=== PATIENT | female | born 1940 | race Hispanic/Latino ===

== ENCOUNTER 2023-05-19 06:09 | Day surgery (SDC) | payer MEDICARE ==
[2023-05-13 12:06] LABS: BASOPHILS # (AUTO) 0.05 K/uL (0.00-0.20); EOSINOPHILS # (AUTO) 0.36 K/uL (0.00-0.70); EOSINOPHILS % (AUTO) 6.9 % (0.0-8.0); HEMATOCRIT 25.7 % (36-48); IMMATURE GRANULOCYTE ABSOLUTE 0.01 K/uL (0-1); LYMPHOCYTES # (AUTO) 0.8 K/uL (1.0-4.8); LYMPHOCYTES % (AUTO) 15.5 % (21.0-51.0); MEAN CORPUSCULAR HEMOGLOBIN 32.6 pg (27.0-33.0); MEAN CORPUSCULAR HGB CONC 34.2 g/dL (32.0-36.0); MEAN CORPUSCULAR VOLUME 95.2 fL (79-99); MONOCYTES # (AUTO) 0.6 K/uL (0.1-1.0); MONOCYTES % (AUTO) 11.7 % (3.0-13.0); NEUTROPHILS # (AUTO) 3.4 K/uL (1.8-7.7); NEUTROPHILS % (AUTO) 64.7 % (40.0-77.0); PLATELET COUNT (AUTO) 146 K/uL (130-400); RED CELL DISTRIBUTION WIDTH 12.2 % (11.0-15.5); WHITE BLOOD COUNT (AUTO) 5.2 K/uL (4.8-10.8)
[2023-05-13 12:16] LABS: INR < 0.93 (0.85-1.15); PROTHROMBIN TIME 10.5 SEC (9.6-11.6)
[2023-05-13 12:17] LABS: CREATININE 3.2 mg/dL (0.5-1.5); PARTIAL THROMBOPLASTIN TIME 26.1 SEC (26.3-35.5); POTASSIUM 5.6 mmol/L (3.5-5.1)
[2023-05-13 12:58] VITALS: BP 117/60; PULSE 61; RESP 16
[~2023-05-19] VITALS: Ht 152.4 cm; Wt 68.4 kg
[2023-05-19] VITALS (17 sets, daily range): BP systolic 111–154; BP diastolic 34–46; PULSE 51–58; RESP 10–18
[~2023-05-19 06:09] MED LIST: ASPI-1026 PO; CARV25TA PO; CHOL500045 PO; DOXA4TAB3 PO; EZET10TA48 PO; FERR-82 PO; FOLI1CAP16 PO; FURO20TA4 PO; ISOS60TA77 PO; LEVO75CA5 PO; MAGN250C PO; NIFE-40 PO; UBID50TA3 PO
[2023-05-19] MEDS ORDERED: LACTATED RINGERS 1000ML 1,000 ML IV ONE (06:21)
[2023-05-19] MEDS ORDERED: CEFAZOLIN SODIUM 2 GM VIAL ONE (06:22)
[2023-05-19 06:40] LABS: CREATININE 3.2 mg/dL (0.5-1.5); POTASSIUM 5.2 mmol/L (3.5-5.1)
[2023-05-19] MEDS ORDERED: BUPIVACAINE/PF 0.5% 30ML VIAL ONE (07:15)
[2023-05-19] MEDS ORDERED: EPINEPHRINE PF 1MG (1:1,000) 1 MG/ML AMP ONE (07:15)
[2023-05-19] MEDS ORDERED: ONDANSETRON 4MG INJ ONE ×2 (07:24→08:23)
[2023-05-19] MEDS ORDERED: LIDOCAINE PF 100MG/5ML (2%) SYRINGE 5ML ONE (07:24)
[2023-05-19] MEDS ORDERED: DEXAMETHASONE SOD PHOSPHATE 10MG/ML 1ML VIAL ONE (07:24)
[2023-05-19] MEDS ORDERED: MIDAZOLAM HCL 1 MG/ML 2ML VIAL ONE (07:25)
[2023-05-19] MEDS ORDERED: FENTANYL CITRATE PF 50 MCG/1 ML 2ML VIAL ONE (07:25)
[2023-05-19] MEDS ORDERED: PROPOFOL 10 MG/ML 20ML VIAL IV ONE (07:25)
[2023-05-19] MEDS ORDERED: KETAMINE 50MG/ML SYRINGE 50 MG/ML DISP.SYRIN ONE (07:27)
[2023-05-19] MEDS ORDERED: EPHEDRINE SULFATE 50 MG/ML AMPULE ONE (07:49)
[2023-05-19] MEDS ORDERED: BUPIVACAINE/EPI/PF 0.5% 30ML VIAL IJ ONE (07:54)
[2023-05-19] MEDS ORDERED: DOCU-116 PO (08:08)
[2023-05-19] MEDS ORDERED: TRAM50TA4 PO (08:10)
[2023-05-19] MEDS ORDERED: MEPERIDINE-PF 25 MG/ML SYG ONE (08:24)
== END 2023-05-19 10:15 | disposition home or self-care (01) ==
LOC: DAH 06:09
PROVIDERS: ATTEND Surgery
DX: C44.619 Basal cell carcinoma of skin of left upper limb, including shoulder (principal); I25.119 Atherosclerotic heart disease of native coronary artery with unspecified angina pectoris; G47.33 Obstructive sleep apnea (adult) (pediatric); M19.90 Unspecified osteoarthritis, unspecified site; I87.2 Venous insufficiency (chronic) (peripheral); E55.9 Vitamin D deficiency, unspecified; I73.9 Peripheral vascular disease, unspecified; D63.1 Anemia in chronic kidney disease; I12.9 Hypertensive chronic kidney disease with stage 1 through stage 4 chronic kidney disease, or unspecified chronic kidney disease; N18.9 Chronic kidney disease, unspecified; Z79.01 Long term (current) use of anticoagulants; Z88.6 Allergy status to analgesic agent; Z88.8 Allergy status to other drugs, medicaments and biological substances; Z95.1 Presence of aortocoronary bypass graft; Z98.890 Other specified postprocedural states; Z90.710 Acquired absence of both cervix and uterus; E89.0 Postprocedural hypothyroidism; Z82.49 Family history of ischemic heart disease and other diseases of the circulatory system; Z80.3 Family history of malignant neoplasm of breast; Z80.0 Family history of malignant neoplasm of digestive organs; Z87.891 Personal history of nicotine dependence; Z79.890 Hormone replacement therapy; Z79.82 Long term (current) use of aspirin; Z79.899 Other long term (current) drug therapy
CPT/HCPCS: 80048 ×2; 85025; 85610; 85730; 36415 ×2; 11604; 88305; A6260; J7120; J3010; J1100; J2001; J0171; J3490 ×4; J2250; J2704; J2405 ×2; J2175; J0690; A4215; A4223; A4222; A4221; A4663; A6450; A4600

== ENCOUNTER 2024-07-28 08:21 | Inpatient (IN) | payer MEDICARE ==
[~2024-07-28] VITALS: Ht 495.3 cm; Wt 56.4 kg
[2024-07-28] VITALS (18 sets, daily range): BP systolic 118–173; BP diastolic 43–79; PULSE 65–92; RESP 14–20; TEMP 97.1–99.8; O2SAT 96
[~2024-07-28 08:21] MED LIST changes: +DOCU-116 PO; +TRAM50TA4 PO
[2024-07-28] MEDS ORDERED: ISOS60TA77 PO (10:20)
[2024-07-28] MEDS ORDERED: FOLI0.8T22 PO (10:20)
[2024-07-28] MEDS ORDERED: VITAMIN B12 PO (10:20)
[2024-07-28] MEDS ORDERED: CALC667C10 PO (10:20)
[2024-07-28] MEDS ORDERED: ASPI-1005 PO (10:20)
[2024-07-28] MEDS ORDERED: CLOP-31 PO (10:20)
[2024-07-28] MEDS ORDERED: FERR-63 PO (10:20)
[2024-07-28] MEDS ORDERED: FAMO20TA8 PO (10:20)
[2024-07-28] MEDS ORDERED: ATOR40TA69 PO (10:20)
[2024-07-28] MEDS: 0.9% NACL 500ML IV.SOLN 500 ML IV ONE (10:35)
[2024-07-28] MEDS ORDERED: proPOFol 10 MG/ML 20ML VIAL IV ONE ×2 (11:59→12:18)
--- NOTE | 2024-07-28 13:21 | NUR ---
AT ABOUT 1320 PT ASKED TO USE THE RESTROOM PT GOT UP FROM BED DENIES ANY DIZZINESS OR ANY COMPLAINTS AMBULATED TO RESTROOM WITH PATRICE CASTILLO ASSISTING. WE DID NOTICE BLOOD ON PATIENTS SHEET ON THE BED AND SOME MORE BLOOD IN THE TOILET TOTAL OF ABOUT 100ML. I THEN CALLED [facility] TO MAKE STAFF AND DR. GARCIA AWARE.
--- NOTE | 2024-07-28 13:24 | NUR ---
NURSING STAFF FROM GI LAB CAME BY AND STATED THEY SPOKE WITH DR. GARCIA ABOUT PT HAVING BRIGHT RED RECTAL BLEEDING. ACCORDING TO DR. GARCIA SHE WILL HAVE SOME BLEEDING D/T SOME TRAUMA FROM THE SCOPE AND PT HAVING SOME IRRITATION IN GI TRACT, AND PT WAS OK TO BE DISCHARGED PER DR. GARCIA.
--- NOTE | 2024-07-28 13:51 | NUR ---
SINCE LAST NOTE PT DID PASS SOME MORE MARLEN BLOOD IN THE RESTROOM NURSING STAFF IN DAYPT WITNESSED. PT ALSO HAD ANOTHER EPISODE OF RECTAL BLEEDING WHILE IN BED AND WISHES TO SPEAK TO "SOMEBODY ABOUT THIS". [facility] LAB WAS CONTACTED AND TOLD TO HAVE DR. GARCIA OR ONE OF THEM SPEAK AND ASSESS PT.
--- NOTE | 2024-07-28 14:10 | NUR ---
RN FROM GI LAB CAME AND ASSESSED PT SPOKE WITH DR. GARCIA ABOUT FINDINGS AND WAS TOLD TO HOLD PT FOR 1 HOUR AND IF THIS CONTINUES TO CALL HIS MID LEVEL GAGE TO COME ASSESS THE PT.
--- NOTE | 2024-07-28 14:45 | NUR ---
PT DID PASS MORE RECTAL BLOOD SCOTT JOHNSON MADE DR. GARCIA AWARE STATES WILL GET A HOLD OF PRODUCTION GENERALIST TO COME ASSESS PT.
--- NOTE | 2024-07-28 15:20 | NUR ---
PT STARTED WITH NAUSEA VOMITING. I DID CONTACT NASREEN BYRD FROM [facility] TO ADMIT UNDER HOSPITALIST AND GIVE ZOFRAN IV NOW. HOSPITALIST PAGED AT THIS TIME.
[2024-07-28] MEDS: ondanSETRON 4MG INJ IVP ONE (15:30)
--- NOTE | 2024-07-28 15:46 | NUR ---
MAHI MITCHELL HOSPITALIST ARRIVED TO DAY 2 TO ASSESS PT.
--- NOTE | 2024-07-28 15:58 | NUR ---
SPOKE WITH ROCHELLE DOWNEY [facility] AND WAS TOLD TO GIVE PT AN CLEAR LIQUID DIET AND IF PT CONTINUES TO BLEED THEN THEY WILL SCOPE PT AGAIN TOMORROW. PENDING ORDERS FROM HER. WILL CONTINUE TO MONITOR PT. VSS NAD AT THIS TIME.
--- NOTE | 2024-07-28 16:25 | HP ---
[facility] HISTORY AND PHYSICAL Date of Service: Jul 28, 2024 Time of Service: 16:08 HISTORY OF PRESENT ILLNESS: [ ] This is a 83-year-old female underwent colonoscopy as outpatient. Postprocedure patient having rectal bleed already has seven episodes. Patient be admitted for observation H&H every 6 hours transfuse to keep hemoglobin above 7.0 nurse practitioner Tamiko Crystal we will carbon to evaluate patient. Patient was seen in day surgery bed 2 patient lying in bed patient denies abdominal pain. Patient denied chest pain or shortness a breath. Patient plan of care was discussed verbalized understanding. REVIEW OF SYSTEMS CONSTITUTIONAL: Denies fevers, chills, or night sweats. No unintentional weight loss reported. NEUROLOGICAL: Denies headache, amaurosis fugax, motor weakness, sensory deficit, vertigo/spinning sensation, gait abnormalities, or tremors. ENT: No hearing loss, otalgia, otorrhea, rhinitis, rhinorrhea, hoarseness, or sore throat. CARDIOVASCULAR: Denies any exertional angina, dyspnea on exertion, orthopnea, paroxysmal nocturnal dyspnea, palpitations, life-threatening arrhythmias, claudication. PULMONARY: Denies any shortness of breath, cough, phlegm/sputum, hemoptysis, pleuritic chest pain. SLEEP: Denies morning headaches, daytime somnolence or napping. Denies difficulty falling asleep, staying asleep, waking from sleep. Denies knowledge of snoring. GASTROINTESTINAL: Denies any type of dysphagia to either liquids or solids. Denies nausea, vomiting, pyrosis, early satiety, abdominal pain, diarrhea, constipation, or changes in stool consistency or caliber. Denies coffee-ground emesis, hematemesis, hematochezia, or melanotic stools. GENITOURINARY: Denies frequency, urgency, nocturia, hematuria or incontinence (Storage/Irritative symptoms.) Low urinary stream, straining to void, urinary intermittency or hesitancy, splitting of the voiding stream, terminal dribbling. ENDOCRINOLOGIC: Denies polyuria, polydipsia, polyphagia or heat/cold intolerances. HEMATOLOGIC: Denies thrombophilia/previous clots, or coagulopathy/bleeding disorders. ONCOLOGIC: Denies personal history of malignancy. DERMATOLOGIC: Denies rashes or pruritus. PSYCHIATRIC: Denies any suicidal or homicidal ideation. Denies hallucinations. PAST MEDICAL HISTORY: [ ] Hypertension, hyperlipidemia, end-stage renal disease on dialysis, diabetes type PAST SURGICAL HISTORY: [ ] CABG Bladder surgery, thyroidectomy, PermCath placement, urine cancer PAST SOCIAL HISTORY: [ ] Denies smoking tobacco products and alcohol use FAMILY HISTORY: [ ] Noncontributory Coded Allergies: codeine (Unverified Allergy, Unknown, 05/15/23) Uncoded Allergies: flu vaccine (Allergy, Unknown, 05/15/23) PHYSICAL EXAM GENERAL APPEARANCE: The patient is awake, alert, and oriented, in no acute cardiopulmonary distress. NEUROLOGICAL: Cranial nerves II-XII grossly intact. Motor is 5/5 in bilateral upper and lower extremities proximal to distal. No sensory deficits. HEENT: Face is symmetric. Pupils are equal and reactive. Extraocular movements are intact. NECK: Supple. No JVD. No thyromegaly. No submental, submandibular, pre-/po stauricular, occipital or supraclavicular lymphadenopathy. CHEST: Normal chest expansion. No Telemetry. LUNGS: Absence of any rales, rhonchi or any wheezing. CARDIOVASCULAR: Regular. S1 and S2 normal. No appreciable rubs, murmurs or gallops. ABDOMEN: Soft, nontender, and nondistended. There is no rebound, voluntary guarding, or rigidity. : Deferred. No Prater. EXTREMITIES: Non-edematous and not cyanotic. No clubbing. Good capillary refill. SKIN: No skin breakdown. Vital Sign (Last 24 Hours) 07/28/24 07/28/24 07/28/24 12:25 13:23 13:50 Temp 97.7 Pulse 87 Resp 15 B/P (MAP) 140/77 Pulse Ox 98 O2 Delivery Room Air O2 Flow Rate 3.0 FiO2 21 LABS: Laboratory: Test 07/28/24 13:40 Range/Units Whole Blood Glucose 96 70-110 MG/DL Current Medications Medications (Trade) Dose Ordered Sig/Seble Route PRN Reason Start Time Stop Time Status Last Admin Dose Admin Levothyroxine Sodium (SYNTHroid 75MCG TAB) 75 mcg DAILY@0630 PO 07/29/24 06:30 08/28/24 06:29 UNV Pantoprazole Sodium 80 mg/ Sodium Chloride 100 ml @ 10 mls/hr Q10H IVP 07/28/24 16:30 08/27/24 16:29 UNV DIAGNOSTICS / RADIOLOGY: [ ] ASSESSMENT: rectal bleed s/p Colonoscopy.POA acute blood loss POA chronic problems: ESRD on HD, CAD s/p CABG, DM Type II PLAN: admit; Medical Surg. Unit Observation over night. admit: GI Dr. Blu Dan H/H q 6 hrs transfuse to keep hgb above 7.0 famotidine 20 mg IV daily home medication: hold asa and plavix fluid restriction, daily weight. HD 3x weekly; MWF replace electrolytes as per protocol PRN: MEDICATIONS Tylenol 650 mg po every 4 hrs for fever zofran 4 mg IV every 6 hrs for n/v [id number] IV every 4 hrs systolic pressure > 160 Supportive measures: DVT ppx with SCD , GI ppx all questions answered time spent: > 35 min Supervising MD: Dr. Clayton c/d [facility] PLANNING 1. Which of the following were discussed? Hospice Care - Yes / No Therapeutic options - Yes / No Advance Directives - Yes / No Other discussions - 2. Discussed with who? 3. Voluntary nature of this service was explained to the patient? Yes / No 4. Amount of time spent - 5. Reviewed by Physician? (if this service was performed by NPP) Yes / No ATTESTATION BY PHYSICIAN I have seen and examined the patient. I reviewed the documentation, medical decision making, and treatment plan as noted by the mid-level provider above. I agree with the findings and plan of care. BHAVIN CLAYTON MD, [facility]ABETH PERFORMANCE ENGINEER Jul 28, 2024 16:25
[2024-07-28] MEDS ORDERED: PANTOPrazole 40MG INJ 80 MG in 0.9%NACL 100ML 100 ML IVP SCH (16:30)
[2024-07-28] MEDS ORDERED: acetaMINOPHEN 325 MG TAB PO PRN (16:30)
[2024-07-28] MEDS ORDERED: ondanSETRON 4MG INJ IVP PRN (16:30)
--- NOTE | 2024-07-28 17:44 | NUR ---
REPORT GIVEN TO 4TH FLOOR NURSE
[2024-07-28 18:21] LABS: HEMATOCRIT 32.1 % (36-48)
[2024-07-28] MEDS: FAMOTIDINE 20MG VIAL IV SCH (20:13)
--- NOTE | 2024-07-28 23:00 | NUR ---
NEW ORDERS FOR COLONOSCOPY MADE PATIENT AWARE OF NEW ORDER FOR COLONOSCOPY. PATIENT ASKING WHY SHE ISN'T HAVING A CT SCAN FIRST. PATIENT STATES SHE WAS TOLD THAT A CT WOULD BE DONE FIRST. PATIENT CONCERNED ABOUT HAVING ANOTHER COLONOSCOPY. PATIENT WOULD LIKE TO SPEAK TO DR OR BACK JOINER BEFORE PROCEEDING SO THAT SHE MAY ASK A FEW QUESTIONS. REFUSAL FOR COLONOSCOPY AND PREP SIGNED BY PATIENT.
[2024-07-29] VITALS (20 sets, daily range): BP systolic 111–185; BP diastolic 31–69; PULSE 61–82; RESP 16–18; TEMP 97.5–99; O2SAT 94
[2024-07-29 05:43] LABS: HEMATOCRIT 27.2 % (36-48)
[2024-07-29 06:18] LABS: ALBUMIN 3.2 g/dL (3.5-5.0); BILIRUBIN,TOTAL 0.8 mg/dL (0.2-1.0); CREATININE 5.9 mg/dL (0.5-1.0); POTASSIUM 3.9 mmol/L (3.5-5.1)
[2024-07-29] MEDS: levoTHYROxine 75 MCG TABLET PO SCH (06:24)
--- NOTE | 2024-07-29 08:19 | CONS ---
NEPHROLOGY CONSULTATION REASON FOR CONSULTATION: End-stage renal disease, on hemodialysis. HISTORY OF PRESENT ILLNESS: This patient is an 83-year-old female with a history of hypertension, end-stage renal disease, on chronic hemodialysis, partial colectomy secondary to incarcerated ventral hernia ____ with colostomy, who underwent a colonoscopy and noted to have a bleeding following procedure. The patient was admitted for observation. The patient dialyzed every Thursday, Thursday and Thursday and nephrology has been consulted to assist with management of hemodialysis treatments during hospitalization. The patient was evaluated this morning. No acute events reported overnight. Voices no concerns at this time. REVIEW OF SYSTEMS: CONSTITUTIONAL: Denies any fevers or chills. EYES: Denies any acute change in vision. EARS: Denies any ear pain or discharge. NOSE AND THROAT: No congestion or sore throat. PULMONARY: Denies any cough, wheezing, or shortness of breath. CARDIOVASCULAR: Denies any chest pain, palpitation, orthopnea, or PND. GASTROINTESTINAL: Bleeding as per HPI. MUSCULOSKELETAL: Denies any erythematous joints or swollen joints. NEUROLOGIC: Denies any focal weakness or syncope. PSYCHIATRIC: Denies anxiety or depression. PAST MEDICAL HISTORY: History of uterine cancer, end-stage renal disease, on chronic hemodialysis, hypertension, hypertensive heart disease, osteoarthritis, obstructive sleep apnea, coronary artery disease, carotid artery disease, hyperlipidemia, vitamin D deficiency, anemia, history of intracranial bleed, peripheral vascular disease, venous insufficiency, prediabetes, ventral hernia, status post partial colectomy and colostomy. PAST SURGICAL HISTORY: CABG, thyroidectomy, right shoulder surgery, cataract surgery, hysterectomy, left carotid endarterectomy, partial colectomy with colostomy. FAMILY HISTORY: Positive for Parkinson's and pancreatic cancer. SOCIAL HISTORY: The patient is a former smoker, although quit several years ago. No alcohol use. ALLERGIES: CODEINE. CURRENT MEDICATIONS: Have been reviewed. PHYSICAL EXAMINATION: CURRENT VITAL SIGNS: Temperature 98.1, pulse 71, blood pressure 111/40, respiratory rate is 16, satting 94% on room air. GENERAL: The patient is resting comfortably. She is alert, she is oriented, no apparent distress. HEENT: Anicteric sclerae. CARDIAC: Regular rhythm and rate. CHEST: Clear. ABDOMEN: Soft. Colostomy in place. EXTREMITIES: No edema. NEUROLOGIC: Nonfocal. LABORATORY DATA: Hemoglobin is 9.5, hematocrit is 27.2, on admission 11.0 and 32.1. Sodium is 139, potassium is 3.9, chloride 100, bicarbonate is 30. BUN is 28, creatinine is 5.9, calcium is 8.2. ASSESSMENT: * End-stage renal disease, on chronic hemodialysis. * Hypertension. * Bleed following colonoscopy. * Anemia. * History of partial colectomy with colostomy. * History of coronary artery disease. * Hypertensive heart disease. PLAN: * End-stage renal disease: The patient will dialyze today per routine schedule 3-hour treatment, 300 blood flow rate, 600 dialysate flow rate, UF 1 liter only as tolerated, 3K bath, 2.5 calcium bath. We will continue routine dialysis Thursday, Thursday, Thursday during hospitalization. Continue renal diet and fluid restriction. * Hypertension: Stable as of this morning. Relative hypotension. Hold antihypertensives prior to dialysis today. * Status post bleed following colonoscopy: Trend H and H. Transfuse as needed. Follow recommendations from Gastroenterology. * Anemia: Resume ANNIE. TID: [id number] RECEIPT: [id number]
[2024-07-29] MEDS ORDERED: 0.9%NACL 1000ML 1,000 ML IV SCH (09:00)
--- NOTE | 2024-07-29 09:35 | PN ---
[facility] PROGRESS NOTE Date of Service: Jul 29, 2024 Time of Service: 09:35 SUBJECTIVE: [ ] 07/29/24 patient is seen and examined repeat colonoscopy this morning by Dr. Garcia patient refused wants to wait on CT abdomen results and we will have a bleeding scan today. Patient is scheduled for dialysis today as well. Patient reports no active bleeding H&H is stable at this time. REVIEW OF SYSTEMS CONSTITUTIONAL: Denies fevers, chills, or night sweats. No unintentional weight loss reported. NEUROLOGICAL: Denies headache, amaurosis fugax, motor weakness, sensory deficit, vertigo/spinning sensation, gait abnormalities, or tremors. ENT: No hearing loss, otalgia, otorrhea, rhinitis, rhinorrhea, hoarseness, or sore throat. CARDIOVASCULAR: Denies any exertional angina, dyspnea on exertion, orthopnea, paroxysmal nocturnal dyspnea, palpitations, life-threatening arrhythmias, claudication. PULMONARY: Denies any shortness of breath, cough, phlegm/sputum, hemoptysis, pleuritic chest pain. SLEEP: Denies morning headaches, daytime somnolence or napping. Denies difficulty falling asleep, staying asleep, waking from sleep. Denies knowledge of snoring. GASTROINTESTINAL: Denies any type of dysphagia to either liquids or solids. Denies nausea, vomiting, pyrosis, early satiety, abdominal pain, diarrhea, constipation, or changes in stool consistency or caliber. Denies coffee-ground emesis, hematemesis, hematochezia, or melanotic stools. GENITOURINARY: Denies frequency, urgency, nocturia, hematuria or incontinence (Storage/Irritative symptoms.) Low urinary stream, straining to void, urinary intermittency or hesitancy, splitting of the voiding stream, terminal dribbling. ENDOCRINOLOGIC: Denies polyuria, polydipsia, polyphagia or heat/cold intolerances. HEMATOLOGIC: Denies thrombophilia/previous clots, or coagulopathy/bleeding disorders. ONCOLOGIC: Denies personal history of malignancy. DERMATOLOGIC: Denies rashes or pruritus. PSYCHIATRIC: Denies any suicidal or homicidal ideation. Denies hallucinations. PHYSICAL EXAM GENERAL APPEARANCE: The patient is awake, alert, and oriented, in no acute cardiopulmonary distress. NEUROLOGICAL: Cranial nerves II-XII grossly intact. Motor is 5/5 in bilateral upper and lower extremities proximal to distal. No sensory deficits. HEENT: Face is symmetric. Pupils are equal and reactive. Extraocular movements are intact. NECK: Supple. No JVD. No thyromegaly. No submental, submandibular, pre- /postauricular, occipital or supraclavicular lymphadenopathy. CHEST: Normal chest expansion. No Telemetry. LUNGS: Absence of any rales, rhonchi or any wheezing. CARDIOVASCULAR: Regular. S1 and S2 normal. No appreciable rubs, murmurs or gallops. ABDOMEN: Soft, nontender, and nondistended. There is no rebound, voluntary guarding, or rigidity. : Deferred. No Prater. EXTREMITIES: Non-edematous and not cyanotic. No clubbing. Good capillary refill. SKIN: No skin breakdown. Vital Signs (last 8hr) Date Time Temp Pulse Resp B/P (MAP) Pulse Ox O2 Delivery O2 Flow Rate FiO2 07/29/24 08:00 97.5 67 18 143/47 94 Room Air 0.0 07/29/24 03:23 98.1 71 16 111/40 94 Room Air LABS: Laboratory: Test 07/29/24 05:07 07/29/24 05:06 Range/Units Hemoglobin 9.5 L 12.0-16.0 g/dL Hematocrit 27.2 L 36-48 % Sodium Level 139 136-145 mmol/L Potassium Level 3.9 3.5-5.1 mmol/L Chloride Level 100 L 101-111 mmol/L Carbon Dioxide Level 30 21-32 mmol/L Blood Urea Nitrogen 28 H 7-18 mg/dL Creatinine 5.9 H 0.5-1.0 mg/dL Glomerular Filtration Rate Calc 7 >90 mL/min Random Glucose 73 70-105 mg/dL Total Calcium 8.2 L 8.5-10.1 mg/dL Magnesium Level 2.00 1.80-2.40 mg/dL Total Bilirubin 0.8 0.2-1.0 mg/dL Aspartate Amino Transf (AST/SGOT) 26 10-37 U/L Alanine Aminotransferase (ALT/SGPT) 29 12-78 U/L Alkaline Phosphatase 68 50-136 U/L Total Protein 6.0 6.0-8.3 g/dL Albumin 3.2 L 3.5-5.0 g/dL Whole Blood Glucose 76 70-110 MG/DL Current Medications Medications (Trade) Dose Ordered Sig/Seble Route PRN Reason Start Time Stop Time Status Last Admin Dose Admin Acetaminophen (TYLenol 325MG TAB) 650 mg Q4H PRN PO TEMPERATURE GREATER THAN 101.5 07/28/24 16:30 08/27/24 16:29 Epoetin Chapo-epbx (Retacrit) 6,000 unit QMOWEFR SQ 07/29/24 09:00 08/28/24 08:59 Famotidine (Pepcid 20mg Vial) 20 mg Q24H IV 07/28/24 21:00 08/27/24 20:59 07/28/24 20:13 20 MG Levothyroxine Sodium (SYNTHroid 75MCG TAB) 75 mcg DAILY@0630 PO 07/29/24 06:30 08/28/24 06:29 07/29/24 06:24 75 MCG Ondansetron HCl (zoFRAN 4MG INJ) 4 mg Q6H PRN IVP NAUSEA/VOMITING 07/28/24 16:30 08/27/24 16:29 Pantoprazole Sodium 80 mg/ Sodium Chloride 100 ml @ 10 mls/hr Q10H IVP 07/28/24 16:30 07/28/24 16:07 DC Sodium Chloride 1,000 ml @ 0 mls/hr ONCE IV 07/29/24 09:00 08/28/24 08:59 DIAGNOSTICS / RADIOLOGY: [ ] ASSESSMENT: rectal bleed s/p Colonoscopy.POA acute blood loss POA Hematochezia POA chronic problems: ESRD on HD, CAD s/p CABG, DM Type II PLAN: admit; Medical Surg. Unit admit: GI Dr. Blu Dan scheduled for repeat Colonoscopy with DR Osorio. CT abd/pelvis revealed: Fluid collection in the anterior right pelvis and lower right flank, 3.3 x 3.8 x 7.0 cm, this is thin-walled without adjacent inflammation, seroma or hematoma favored over abscess. NM bleeding scan today H/H q 6 hrs transfuse to keep hgb above 7.0 famotidine 20 mg IV daily home medication: hold asa and plavix will be defer to GI. fluid restriction, daily weight. HD 3x weekly; MWF replace electrolytes as per protocol PRN: MEDICATIONS Tylenol 650 mg po every 4 hrs for fever zofran 4 mg IV every 6 hrs for n/v [id number] IV every 4 hrs systolic pressure > 160 Supportive measures: DVT ppx with SCD , GI ppx all questions answered time spent: > 35 min Supervising MD: Dr. Clayton c/d ATTESTATION BY PHYSICIAN I have seen and examined the patient. I reviewed the documentation, medical decision making, and treatment plan as noted by the mid-level provider above. I agree with the findings and plan of care. BHAVIN CLAYTON MD, [facility]ABETH NP Jul 29, 2024 09:35
--- NOTE | 2024-07-29 10:24 | HMCIMG ---
CT ABDOMEN/PELVIS W/O CONTRAST REASON: rectal bleeding COMPARISON: None. FINDINGS: Lung bases are clear. There are no focal liver lesions. There is mild renal cortical thinning, there is no mass, stone or hydronephrosis.. Spleen and pancreas appear unremarkable. There are small stones in an otherwise normal-appearing gallbladder. There is an ostomy in the right flank. There is herniation of a second small bowel loops through the ostomy without evidence of strangulation or obstruction. This includes normal appearance of the appendix There is no evidence of free fluid or intraperitoneal air. There is a well-circumscribed thin-walled fluid collection in the lower right flank extending into the anterior portion of the pelvis, this measures 7 cm superior to inferior and 3.3 x 3.8 cm axial dimension. An wall suggests a seroma or hematoma, abscess is less likely but could also be present. Aorta and retroperitoneum appear normal as do pelvic soft tissue structures. The anterior abdominal wall is intact. Osseous structures appear unremarkable. IMPRESSION: 1. Right to flank ostomy, there is a second small bowel loop herniated through the ostomy, there is no current evidence of strangulation or obstruction. 2. Fluid collection in the anterior right pelvis and lower right flank, 3.3 x 3.8 x 7.0 cm, this is thin-walled without adjacent inflammation, seroma or hematoma favored over abscess. 3. Cholelithiasis without acute cholecystitis 4. Mild bilateral renal cortical thinning 5. Otherwise unremarkable exam. CT was performed with one or more following dose reduction techniques: automated exposure control, adjustment of the mA and kv according to patient's size, or use of a iterative reconstruction technique.
--- NOTE | 2024-07-29 10:36 | PN ---
GASTROENTEROLOGY PROGRESS NOTE Date of Visit: Jul 29, 2024 Time of Visit: 10:35 Events / Notes: [ ] No acute events overnight. Bleeding has subsided. Hgb stable. Review of Systems: CONSTITUTIONAL: No malaise or change in sensation of wellbeing. ENMT: No rhinorrhea, otorrhea, sinus pain, ear ache. CARDIOVASCULAR: No angina, palpitations, orthopnea or paroxysmal dyspnea. RESPIRATORY: No SOB. GASTROINTESTINAL: No abdominal pain, nausea, vomiting, diarrhea, hematemesis, melena or change in the patient's habitual bowel movements consistency/number. GENITOURINARY: No dysuria, hematuria or change in bladder continence. MUSCULOSKELETAL: No new muscle pain or decrease in muscular strength. No new joint swelling, redness or tenderness. SKIN: No new rash. Physical Exam: GEN: Awake, alert, oriented in person, time and place, and in no acute distress. HEENT: No sinus tenderness. Tympanic membranes were not examined. No rhinorrhea. Oral pharyngeal mucosa is pink, moist and within normal limits. Neck is supple with no cervical lymphadenopathy, thyromegaly or JVD. CHEST: Inspection, palpation and percussion of the chest were unremarkable. Lung auscultation revealed normal breath sounds bilaterally. CARDIAC: PMI is within normal limits. Heart sounds are regular. Normal S1, S2. No gallop or murmur. ABD: Soft, non-tender and not distended. No peritoneal signs on palpation. No organomegaly. Normal bowel sounds. EXT: No cyanosis or clubbing. No edema. SKIN: Intact. No rashes. JOINTS: No evidence of synovitis or acute arthritis. NEURO: Alert and oriented to name, place and person. Cranial nerve examination is unremarkable. No focal motor deficits. Normal speech. Gait is normal. Strength is normal. Vital Signs (last 8hr) Date Time Temp Pulse Resp B/P (MAP) Pulse Ox O2 Delivery O2 Flow Rate FiO2 07/29/24 08:00 97.5 67 18 143/47 94 Room Air 0.0 07/29/24 03:23 98.1 71 16 111/40 94 Room Air Laboratory: [ ] Laboratory: Test 07/29/24 05:07 07/29/24 05:06 Range/Units Hemoglobin 9.5 L 12.0-16.0 g/dL Hematocrit 27.2 L 36-48 % Sodium Level 139 136-145 mmol/L Potassium Level 3.9 3.5-5.1 mmol/L Chloride Level 100 L 101-111 mmol/L Carbon Dioxide Level 30 21-32 mmol/L Blood Urea Nitrogen 28 H 7-18 mg/dL Creatinine 5.9 H 0.5-1.0 mg/dL Glomerular Filtration Rate Calc 7 >90 mL/min Random Glucose 73 70-105 mg/dL Total Calcium 8.2 L 8.5-10.1 mg/dL Magnesium Level 2.00 1.80-2.40 mg/dL Total Bilirubin 0.8 0.2-1.0 mg/dL Aspartate Amino Transf (AST/SGOT) 26 10-37 U/L Alanine Aminotransferase (ALT/SGPT) 29 12-78 U/L Alkaline Phosphatase 68 50-136 U/L Total Protein 6.0 6.0-8.3 g/dL Albumin 3.2 L 3.5-5.0 g/dL Whole Blood Glucose 76 70-110 MG/DL Current Medications Medications (Trade) Dose Ordered Sig/Seble Route PRN Reason Start Time Stop Time Status Last Admin Dose Admin Acetaminophen (TYLenol 325MG TAB) 650 mg Q4H PRN PO TEMPERATURE GREATER THAN 101.5 07/28/24 16:30 08/27/24 16:29 Epoetin Chapo-epbx (Retacrit) 6,000 unit QMOWEFR SQ 07/29/24 09:00 08/28/24 08:59 Famotidine (Pepcid 20mg Vial) 20 mg Q24H IV 07/28/24 21:00 08/27/24 20:59 07/28/24 20:13 20 MG Levothyroxine Sodium (SYNTHroid 75MCG TAB) 75 mcg DAILY@0630 PO 07/29/24 06:30 08/28/24 06:29 07/29/24 06:24 75 MCG Ondansetron HCl (zoFRAN 4MG INJ) 4 mg Q6H PRN IVP NAUSEA/VOMITING 07/28/24 16:30 08/27/24 16:29 Pantoprazole Sodium 80 mg/ Sodium Chloride 100 ml @ 10 mls/hr Q10H IVP 07/28/24 16:30 07/28/24 16:07 DC Sodium Chloride 1,000 ml @ 0 mls/hr ONCE IV 07/29/24 09:00 08/28/24 08:59 Diagnostics / Radiology: [COPY/PASTE HERE IF NO REPORTS PLEASE DELETE SECTION] Assessment: [ ] Plan: CT a/p If no more bleeding, she is cleared for discharge Continue GI prophylaxis Advance diet as tolerated Avoid NSAIDs Antireflux measures Monitor H&H and transfuse as needed Call with questions, concerns or change in clinical status Patient to follow-up at clinic post discharge Thank you for this consult GEETHA ROSA SPOON MAKER Jul 29, 2024 10:36
[2024-07-29 13:18] LABS: HEMATOCRIT 26.4 % (36-48)
[2024-07-29] MEDS: 0.9%NACL 1000ML 1,000 ML IV SCH (14:44)
[2024-07-29] MEDS ORDERED: hydrALAZine 20MG/ML VIAL IV PRN (16:30)
[2024-07-29 16:32] LABS: HEPATITIS B CORE AB TOTAL Non-Reactive (Nonreactive); HEPATITIS B SURFACE ANTIBODY Negative (Reactive); HEPATITIS B SURFACE ANTIGEN Non-Reactive (Nonreactive)
[2024-07-29] MEDS: HEParin 5,000 UNIT VIAL IRRIG SCH (16:49)
[2024-07-29 16:52] LABS: HEMATOCRIT 27.7 % (36-48)
[2024-07-29] MEDS: EPOETIN ALFA-EPBX (NON-ESRD) 10,000 UNIT/ML VIAL SQ SCH (20:08)
[2024-07-29 23:28] LABS: HEMATOCRIT 27.2 % (36-48)
[2024-07-30] VITALS: BP 115/50; PULSE 67; RESP 16; TEMP 97.9
[2024-07-30 04:00] VITALS: BP 143/66; PULSE 66; RESP 18; TEMP 97.8
[2024-07-30 05:22] LABS: HEMATOCRIT 27.7 % (36-48); MEAN CORPUSCULAR HEMOGLOBIN 33.2 pg (27.0-33.0); MEAN CORPUSCULAR HGB CONC 33.9 g/dL (32.0-36.0); MEAN CORPUSCULAR VOLUME 97.9 fL (79-99); RED BLOOD CELL COUNT(AUTO) 2.83 MIL/uL (4.00-5.50); RED CELL DISTRIBUTION WIDTH 14.4 % (11.0-15.5); WHITE BLOOD COUNT (AUTO) 6.2 K/uL (4.8-10.8)
[2024-07-30 05:43] LABS: ALBUMIN 3.2 g/dL (3.5-5.0); BILIRUBIN,TOTAL 0.7 mg/dL (0.2-1.0); CREATININE 4.2 mg/dL (0.5-1.0); POTASSIUM 4.1 mmol/L (3.5-5.1); TOTAL PROTEIN, SERUM 6.3 g/dL (6.0-8.3)
[2024-07-30 08:00] VITALS: BP 170/51; PULSE 63; RESP 16; TEMP 98.2; O2SAT 95
--- NOTE | 2024-07-30 08:33 | HMCIMG ---
GI BLEEDING SCAN INDICATION: Rectal bleeding and dark stools COMPARISON: None. TECHNIQUE: 23.0 mCi of Tc04 labelled red blood cells were utilized with the Ultratag method. FINDINGS/IMPRESSION: No evidence for any abnormal mobile increased radiotracer activity within the abdomen or pelvis to suggest active gastrointestinal hemorrhage.
[2024-07-30 09:28] VITALS: BP 150/52
--- NOTE | 2024-07-30 10:44 | DS ---
Discharge Summary Hospital Course Summary: This is a 83-year-old female underwent colonoscopy as outpatient. Postprocedure patient having rectal bleed already has seven episodes. Patient be admitted for observation H&H every 6 hours transfuse to keep hemoglobin above 7.0 nurse practitioner Tamiko Crystal we will carbon to evaluate patient. During the course of stay patient was monitored H&H was stable did not need blood transfusion on this admission. Patient had a CTA abdomen bleeding scan were negative for bleeding. Patient's latest hemoglobin 9.4 Hematocrit 27.7. Patient on room air denies any chest pain or shortness a breath patient was also followed by her primary quality audit representative for REGIONAL TRAINER management. Repeat colonoscopy with MAC was denied by patient. She was instructed to follow-up Dr. Hurt as scheduled. Patient is clinically stable for dischargeNo acute events overnight. Bleeding has subsided. Hgb stable. Assessment/Plan: discharged dx rectal bleed s/p Colonoscopy.POA bleed scan negative no active bleeding since admission acute blood loss POA no blood transfusion on this admission Hematochezia POA resolved chronic problems: ESRD on HD, CAD s/p CABG, DM Type II PLAN: ADMISSION DATE: July 29, 2024 DISCHARGE DATE: July 30, 2024 DISPOSITION: Home CONDITION: Stable SWITCHING OPERATOR(S): GI FOLLOW UP APPOINTMENT(S): Follow-up GI in one-week PROCEDURES: Colonoscopy IMAGING (S) report attached to summary : CT abdomen and pelvis, nuclear medicine bleeding scan MICROBIOLOGY: report attached to summary; none ACTIVITY: Ad whitley HOME MEDICATIONS remain the same CHANGES ON HOME MEDICATIONS none NEW MEDICATIONS none TEACHING: Fall precautions. Emergency instructions: The patient was instructed to present to the nearest Emergency Department or call 911 should their symptoms return or worsen. Home Medications: Reported Medications Isosorbide Mononitrate (Isosorbide Mononitrate ER) 60 Mg Tab.er.24h, 1 TAB PO DAILY for 30 Days, #30 TAB 0 Refills 07/28/24 Folic Acid/Vitamin B Comp W-C (Mary Kay-Charlotte Tablet) 0.8 Mg Tablet, 1 TAB PO DAILY for 30 Days, #30 TAB 0 Refills 07/28/24 Clopidogrel Bisulfate (Plavix) 75 Mg Tablet, 1 TAB PO DAILY for 30 Days, #30 TAB 0 Refills 07/28/24 Famotidine (Famotidine) 20 Mg Tablet, 20 MG PO AM, TAB 07/28/24 Atorvastatin Calcium (LIPITOR) 40 Mg Tablet, 1 TAB PO HS for 30 Days, #30 TAB 0 Refills 07/28/24 Aspirin (ASPIRIN 81MG CHEW TAB) 81 Mg Tab.chew, 1 TAB PO DAILY for 30 Days, #30 TAB 0 Refills 07/28/24 Ferrous Sulfate (Feosol) 325 Mg (65 Mg Iron) Tablet, 1 TAB PO DAILY for 30 Days, #30 TAB 0 Refills 07/28/24 [Vitamin B12] No Conflict Check, 1000 MCG PO HS 07/28/24 Calcium Acetate (Calcium Acetate) 667 Mg Capsule, 1 CAP PO TID for 30 Days, #90 CAP 0 Refills 07/28/24 Ezetimibe (Ezetimibe) 10 Mg Tablet, 10 MG PO AM, TAB 05/14/23 Levothyroxine Sodium (Levothyroxine) 75 Mcg Capsule, 75 MCG PO AM, CAP 05/14/23 Folic Acid/Vitamin B Comp W-C (Renal Caps Softgel) 1 Mg Capsule, 1 MG PO PM, CAP 05/14/23 Discontinued Reported Medications Magnesium Citrate and Oxide (Magnesium) 250 Mg Capsule, 250 MG PO AM, CAP 05/14/23 Isosorbide Mononitrate (Isosorbide Mononitrate ER) 60 Mg Tab.er.24h, 60 MG PO AM, TAB 05/14/23 Aspirin (Aspirin) 325 Mg Tablet, 325 MG PO PM, TAB 05/14/23 Cholecalciferol (Vitamin D3) (Vitamin D3) 125 Mcg Tablet, 125 MCG PO PM, TAB 05/14/23 Ubidecarenone (Coq10) 50 Mg Tab.chew, 100 MG PO PM, TAB.CHEW 05/14/23 Doxazosin Mesylate (Doxazosin Mesylate) 4 Mg Tablet, 4 MG PO BID, TAB 05/14/23 Furosemide (Furosemide) 20 Mg Tablet, 20 MG PO QODAY, TAB 05/14/23 Ferrous Sulfate (Iron) 325 Mg Tablet, 325 MG PO BID, TAB 05/14/23 Nifedipine (Nifedipine ER) 30 Mg Tab.er.24, 30 MG PO AM 05/14/23 Carvedilol (Carvedilol) 25 Mg Tablet, 25 MG PO BID, TAB 05/14/23 Discontinued Scripts Tramadol Hcl (Tramadol HCl) 50 Mg Tablet, 50 MG PO Q6HPRN PRN for PAIN, #28 TAB 0 Refills Prov:SHANNON HUYNH MD 05/19/23 Docusate Sodium (Colace) 100 Mg Capsule, 100 MG PO BID, #30 CAP 0 Refills Prov:SHANNON HUYNH MD 05/19/23 Continued Medications: Aspirin (Aspirin 81MG Chew Tab) 81 Mg Tab.chew 1 TAB PO DAILY for 30 Days, #30 TAB 0 Refills Atorvastatin Calcium (Lipitor) 40 Mg Tablet 1 TAB PO HS for 30 Days, #30 TAB 0 Refills Calcium Acetate (Calcium Acetate) 667 Mg Capsule 1 CAP PO TID for 30 Days, #90 CAP 0 Refills Clopidogrel Bisulfate (Plavix) 75 Mg Tablet 1 TAB PO DAILY for 30 Days, #30 TAB 0 Refills Ezetimibe (Ezetimibe) 10 Mg Tablet 10 MG PO AM, TAB Famotidine (Famotidine) 20 Mg Tablet 20 MG PO AM, TAB Ferrous Sulfate (Feosol) 325 Mg (65 Mg Iron) Tablet 1 TAB PO DAILY for 30 Days, #30 TAB 0 Refills Folic Acid/Vitamin B Comp W-C (Renal Caps Softgel) 1 Mg Capsule 1 MG PO PM, CAP Folic Acid/Vitamin B Comp W-C (Mary Kay-Charlotte Tablet) 0.8 Mg Tablet 1 TAB PO DAILY for 30 Days, #30 TAB 0 Refills Isosorbide Mononitrate (Isosorbide Mononitrate ER) 60 Mg Tab.er.24h 1 TAB PO DAILY for 30 Days, #30 TAB 0 Refills Levothyroxine Sodium (Levothyroxine) 75 Mcg Capsule 75 MCG PO AM, CAP [Vitamin B12] () 1000 MCG PO HS Time spent arranging discharge: 31-60 minutes ATTESTATION BY PHYSICIAN I have seen and examined the patient. I reviewed the documentation, medical decision making, and treatment plan as noted by the resident provider above. I agree with the findings and plan of care. Brennan Thompson MD, ELIZABETH NP Jul 30, 2024 10:44
--- NOTE | 2024-07-30 11:15 | NUR ---
DISCHARGE PATIENT HAS BEEN DISCHARGED HOME. PIV REMOVED. PRESSURE, GAUZE, AND TAPE APPLIED TO SITE. PATIENT VERBALIZES UNDERSTANDING OF DISCHARGE PAPERWORK. PATIENT HAS AN APPOINTMENT WITH [facility] ON 08/04/24 @1400. PATIENT EDUCATED ON THE IMPORTANCE OF FOLLOWING UP [facility], PATIENT VERBALIZES UNDERSTANDING. PATIENT IS TO BE WHEELED DOWN TO PRIVATE AUTOMOBILE, PENDING RIDE.
--- NOTE | 2024-07-30 12:00 | NUR ---
DISCHARGE PATIENT'S RIDE IS HERE PATIENT STATES SHE FEELS COMFORTABLE ENOUGH TO WALK DOWN TO PRIVATE AUTOMOBILE. PATIENT ACCOMPANIED BY CENTER CUSTOMER SERVICE ASSOCIATE AND TO PRIVATE AUTOMOBILE.
== END 2024-07-30 12:00 | disposition home or self-care (01) | DRG 919 ==
LOC: DAH 08:21 → DAHIP 08:22 → 4AH 18:16
PROVIDERS: ADMIT Internal Medicine; ATTEND Internal Medicine
PROC: 5A1D70Z Performance of Urinary Filtration, Intermittent, Less than 6 Hours Per Day (ICD-10-PCS; principal; 2024-07-29)
DX: K91.840 Postprocedural hemorrhage of a digestive system organ or structure following a digestive system procedure (principal); N18.6 End stage renal disease; K92.1 Melena; I13.11 Hypertensive heart and chronic kidney disease without heart failure, with stage 5 chronic kidney disease, or end stage renal disease; I25.810 Atherosclerosis of coronary artery bypass graft(s) without angina pectoris; E11.22 Type 2 diabetes mellitus with diabetic chronic kidney disease; E78.5 Hyperlipidemia, unspecified; D64.9 Anemia, unspecified; E11.51 Type 2 diabetes mellitus with diabetic peripheral angiopathy without gangrene; E89.0 Postprocedural hypothyroidism; G47.33 Obstructive sleep apnea (adult) (pediatric); I25.10 Atherosclerotic heart disease of native coronary artery without angina pectoris; Y83.8 Other surgical procedures as the cause of abnormal reaction of the patient, or of later complication, without mention of misadventure at the time of the procedure; Z99.2 Dependence on renal dialysis; Z95.1 Presence of aortocoronary bypass graft; Z93.3 Colostomy status; Z90.710 Acquired absence of both cervix and uterus; Z90.49 Acquired absence of other specified parts of digestive tract; Z87.891 Personal history of nicotine dependence; Z86.73 Personal history of transient ischemic attack (TIA), and cerebral infarction without residual deficits; Z85.42 Personal history of malignant neoplasm of other parts of uterus; Z82.0 Family history of epilepsy and other diseases of the nervous system; Z80.0 Family history of malignant neoplasm of digestive organs; Z79.899 Other long term (current) drug therapy
CPT/HCPCS: 36415; 45378; 74176; 78278; 80053; 82948; 83735; 85014; 85018; 85027; 86704; 86706; 86850; 86900; 86901; 87340; 90935; A4606; A9512; G0378; J0360; J1644; J2704; J3490; J7040; A4215; A4221; A4222; A4223; A4620; A4663; Q5106

== ENCOUNTER → 2024-08-30 | Outpatient (CLI) | payer MEDICARE ==
[~2024-08-30] MED LIST changes: +ASPI-1005 PO; -ASPI-1026 PO; +ATOR40TA69 PO; +CALC667C10 PO; -CARV25TA PO; -CHOL500045 PO; +CLOP-31 PO; -DOCU-116 PO; -DOXA4TAB3 PO; +FAMO20TA8 PO; +FERR-63 PO; -FERR-82 PO; +FOLI0.8T22 PO; -FURO20TA4 PO; -MAGN250C PO; -NIFE-40 PO; -TRAM50TA4 PO; -UBID50TA3 PO; +VITAMIN B12 PO
[2024-08-30 12:16] LABS: BASOPHILS # (AUTO) 0.06 K/uL (0.00-0.20); BASOPHILS % (AUTO) 1.2 % (0.0-5.0); EOSINOPHILS # (AUTO) 0.43 K/uL (0.00-0.70); EOSINOPHILS % (AUTO) 8.5 % (0.0-8.0); HEMATOCRIT 35.6 % (36-48); IMMATURE GRANULOCYTE ABSOLUTE 0.01 K/uL (0-1); LYMPHOCYTES # (AUTO) 0.9 K/uL (1.0-4.8); LYMPHOCYTES % (AUTO) 18.6 % (21.0-51.0); MEAN CORPUSCULAR HEMOGLOBIN 33.4 pg (27.0-33.0); MEAN CORPUSCULAR HGB CONC 32.9 g/dL (32.0-36.0); MEAN CORPUSCULAR VOLUME 101.7 fL (79-99); MONOCYTES # (AUTO) 0.8 K/uL (0.1-1.0); NEUTROPHILS # (AUTO) 2.9 K/uL (1.8-7.7); NEUTROPHILS % (AUTO) 56.5 % (40.0-77.0); PLATELET COUNT (AUTO) 132 K/uL (130-400); RED CELL DISTRIBUTION WIDTH 13.7 % (11.0-15.5); WHITE BLOOD COUNT (AUTO) 5.1 K/uL (4.8-10.8)
[2024-08-30 12:42] LABS: BILIRUBIN,TOTAL 0.8 mg/dL (0.2-1.0); CREATININE 5.6 mg/dL (0.5-1.0); TOTAL PROTEIN, SERUM 7.3 g/dL (6.0-8.3)
== END | disposition home or self-care (01) ==
LOC: LAB 11:15
PROVIDERS: ATTEND Internal Medicine Gastroenterology
DX: K57.30 Diverticulosis of large intestine without perforation or abscess without bleeding (principal); R93.3 Abnormal findings on diagnostic imaging of other parts of digestive tract; Z93.3 Colostomy status
CPT/HCPCS: 36415; 80053; 85025; 86140

== ENCOUNTER → 2024-09-01 | Outpatient (CLI) | payer MEDICARE ==
[~2024-09-01] MED LIST changes: +IOHEXOL-350 75 ML VIAL IV ONE
--- NOTE | 2024-09-01 11:01 | HMCIMG ---
CT ABDOMEN/PELVIS W/CONTRAST HISTORY: Diverticulosis COMPARISON: 07/29/2024 TECHNIQUE: Multiple sequential axial images of the abdomen and pelvis were obtained from the dome of the diaphragm through symphysis pubis. Patient was given 75 cc of Omnipaque through intravenous route. Oral contrast was given. FINDINGS: No pleural effusion is seen bilaterally. There is no evidence of parenchymal disease or pulmonary nodule of the visualized lower lungs. Degenerative changes of the thoracolumbar spine are present. The heart is borderline enlarged. Liver measures 8.4 cm. Extensive vascular calcifications are seen. Bilateral renal cortical scarring is seen. Right colostomy changes are seen. No bowel obstruction is seen. The liver, spleen, adrenal glands and pancreas are unremarkable. There is no evidence of hydronephrosis bilaterally. No evidence of renal stone is seen. There is mild diverticulosis. Fecal material is seen in the colon. There are normal size retroperitoneal and mesenteric lymph nodes. No ascites is seen. Atherosclerotic changes are present. Pelvic sidewalls are symmetric bilaterally. Bladder is poorly distended with apparent wall thickening. IMPRESSION: 1. Diverticulosis. No bowel obstruction. Right colostomy. CT was performed with one or more following dose reduction techniques: automated exposure control, adjustment of the mA and kv according to patient's size, or use of a iterative reconstruction technique.
== END | disposition home or self-care (01) ==
LOC: RAH 08:48
PROVIDERS: ATTEND Internal Medicine Gastroenterology
DX: K57.30 Diverticulosis of large intestine without perforation or abscess without bleeding (principal); R93.3 Abnormal findings on diagnostic imaging of other parts of digestive tract; Z93.3 Colostomy status; M47.815 Spondylosis without myelopathy or radiculopathy, thoracolumbar region
CPT/HCPCS: 74177; Q9967

== ENCOUNTER → 2024-09-22 | Outpatient (CLI) | payer MEDICARE ==
[~2024-09-22] MED LIST changes: -IOHEXOL-350 75 ML VIAL IV ONE
--- NOTE | 2024-09-22 16:36 | HMCIMG ---
COLON-GASTROGRAFIN REASON: Colostomy status. COMPARISON: None TECHNIQUE: Gastrografin enema study was performed. FINDINGS: There is no obstruction to the retrograde passage of Gastrografin from rectum through blind pouch in the transverse colon. There is diverticulosis. No extravasation of contrast is seen. The descending colon is collapsed. IMPRESSION: Post colostomy. No obstruction is seen.
== END | disposition home or self-care (01) ==
LOC: RAH 09:01
PROVIDERS: ATTEND Surgery
DX: K57.30 Diverticulosis of large intestine without perforation or abscess without bleeding (principal); Z93.3 Colostomy status
CPT/HCPCS: 74270; Q9958

== ENCOUNTER 2024-10-09 19:17 | Inpatient (IN) | payer MEDICARE ==
[~2024-10-09] VITALS: Ht 152.4 cm; Wt 55.7 kg
--- NOTE | 2024-10-09 19:51 | ERN ---
General Chief Complaint: Nausea,Vomiting,Diarrhea Stated Complaint: N/V, LEG CRAMPS ONSET THURSDAY Time Seen by MD: 19:20 Source: patient History of Present Illness Initial Comments 84-year-old female coming in with nauseousness and vomiting. Per EMS patient has been having these issues since Thursday patient does state that she was chronic history of right lower extremity spasms which has been evaluated in the past. She states that the spasms are making her nauseousness worse. Per EMS patient has a temperature of 101 she was mildly tachycardic. She quantifies her right lower extremities spasms and a pain scale of 10/10. Allergies: Coded Allergies: codeine (Unverified Allergy, Unknown, 05/15/23) Uncoded Allergies: flu vaccine (Allergy, Unknown, 05/15/23) Home Meds Reported Medications Isosorbide Mononitrate (Isosorbide Mononitrate ER) 60 Mg Tab.er.24h, 1 TAB PO DAILY for 30 Days, #30 TAB 0 Refills 07/28/24 Folic Acid/Vitamin B Comp W-C (Mary Kay-Charlotte Tablet) 0.8 Mg Tablet, 1 TAB PO DAILY for 30 Days, #30 TAB 0 Refills 07/28/24 Clopidogrel Bisulfate (Plavix) 75 Mg Tablet, 1 TAB PO DAILY for 30 Days, #30 TAB 0 Refills 07/28/24 Famotidine (Famotidine) 20 Mg Tablet, 20 MG PO AM, TAB 07/28/24 Atorvastatin Calcium (LIPITOR) 40 Mg Tablet, 1 TAB PO HS for 30 Days, #30 TAB 0 Refills 07/28/24 Aspirin (ASPIRIN 81MG CHEW TAB) 81 Mg Tab.chew, 1 TAB PO DAILY for 30 Days, #30 TAB 0 Refills 07/28/24 Ferrous Sulfate (Feosol) 325 Mg (65 Mg Iron) Tablet, 1 TAB PO DAILY for 30 Days, #30 TAB 0 Refills 07/28/24 [Vitamin B12] No Conflict Check, 1000 MCG PO HS 07/28/24 Calcium Acetate (Calcium Acetate) 667 Mg Capsule, 1 CAP PO TID for 30 Days, #90 CAP 0 Refills 07/28/24 Ezetimibe (Ezetimibe) 10 Mg Tablet, 10 MG PO AM, TAB 05/14/23 Levothyroxine Sodium (Levothyroxine) 75 Mcg Capsule, 75 MCG PO AM, CAP 8/31/23 Folic Acid/Vitamin B Comp W-C (Renal Caps Softgel) 1 Mg Capsule, 1 MG PO PM, CAP 05/14/23 Past Medical History Past Medical History: Diabetes-Type II, High Cholesterol, Heart Disease, Hypertension, Renal Failure Past Surgical History: Hysterectomy, CABG ROS Dictation CONSTITUTIONAL: No chills, no fever, no weakness, no diaphoresis, no malaise. HEAD/FACE: No signs of trauma. EENT: No eye pain, no blurred vision, no tearing, no double vision, no ear pain, no ear discharge, no nose pain, no nasal congestion, no throat pain, no throat swelling, no mouth pain. RESPIRATORY: No cough, no orthopnea, no SOB, no stridor, no wheezing. CARDIOVASCULAR: No chest pain, no edema, no palpitations, no syncope. GASTROINTESTINAL/ABDOMINAL: No abdominal pain, no constipation, no diarrhea, no nausea, no vomiting. GENITOURINARY: No abnormal discharge, no dysuria, no frequent urination, no hematuria. No complaints of pain in the genitals. MUSCULOSKELETAL: No back pain, no gout, no joint pain, no joint swelling, muscle pain, no muscle stiffness, no neck pain. INTEGUMENTARY: No change in color, no change in hair/nails, no dryness, no lesion, no lumps, no rash. NEUROLOGICAL/PSYCH: No anxiety, not depressed, no emotional problem, no headache, no numbness, no pre-existing deficit, no history of seizures, no tremors, no weakness. HEMATOLOGIC/LYMPHATIC: Not anemic, no history of blood clots, no apparent bleeding, no bruising, glands not swollen. All Systems Negative, Except as Noted. Physical Exam Physical Exam Dictation VITAL SIGNS: Reviewed. GENERAL APPEARANCE: Alert, oriented x3, no acute distress, obese. HEAD AND FACE: Non-traumatic. EYES: PERRL, pink conjunctivas, eyelid no trauma, anterior chamber clear. EARS: Pinnas intact and no signs of trauma or erythema. Ear canals clear and no discharge. TMs no erythema. NOSE: No discharge, no bleeding. OROPHARYNX: Mouth normal, teeth no caries, tongue pink. Pharynx clear, no erythema. Tonsils no exudates, no abscesses noted. Mucous membrane moist. NECK: Supple, non-tender, no thyromegaly, no masses, no JVD, no bruits. BREAST: Deferred. CHEST: No tenderness, no crepitus, no paradoxical movement, no retractions. LUNGS: Clear, well-ventilated, symmetric, no rales, no wheezing, no rhonchi, no stridor, good breath sounds bilaterally. HEART: Regular rate, regular rhythm, no murmur, no gallops. VASCULAR: No peripheral edema. ABDOMEN: Soft, positive bowel sounds, nondistended, no guarding, nontender, no rebound, no masses no hepatomegaly, no splenomegaly, no Cortes's sign, no hernias. RECTAL: Deferred. GENITAL: Deferred. NEUROLOGICAL: Normal speech, gross motor function intact, gross sensory function intact. MUSCULOSKELETAL: Neck nontender, full range of motion, back nontender, full range of motion. EXTREMITIES: Nontender, full range of motion. Right lower extremity spasms, able to flex and extend abduction and adduction no focal tenderness SKIN: Color pink, dry, no turgor, no rash, no lacerations, no abrasions, no contusions. LYMPHATICS: Deferred. Results Laboratory and Microbiology Lab and Micro Result Laboratory Tests Test 10/09/24 19:45 10/09/24 20:27 10/09/24 22:36 10/09/24 22:46 White Blood Count 7.4 K/uL (4.8-10.8) Red Blood Count 3.67 MIL/uL (4.00-5.50) L Hemoglobin 12.3 g/dL (12.0-16.0) Hematocrit 36.2 % (36-48) Mean Corpuscular Volume 98.6 fL (79-99) Mean Corpuscular Hemoglobin 33.5 pg (27.0-33.0) H Mean Corpuscular Hemoglobin Concent 34.0 g/dL (32.0-36.0) Red Cell Distribution Width 13.5 % (11.0-15.5) Platelet Count 147 K/uL (130-400) Mean Platelet Volume 10.8 fL (7.5-10.5) H Immature Granulocyte % (Auto) 0.4 % (0-1) Neutrophils (%) (Auto) 84.8 % (40.0-77.0) H Lymphocytes (%) (Auto) 3.0 % (21.0-51.0) L Monocytes (%) (Auto) 10.9 % (3.0-13.0) Eosinophils (%) (Auto) 0.5 % (0.0-8.0) Basophils (%) (Auto) 0.4 % (0.0-5.0) Neutrophils # (Auto) 6.3 K/uL (1.8-7.7) Lymphocytes # (Auto) 0.2 K/uL (1.0-4.8) L Monocytes # (Auto) 0.8 K/uL (0.1-1.0) Eosinophils # (Auto) 0.04 K/uL (0.00-0.70) Basophils # (Auto) 0.03 K/uL (0.00-0.20) Absolute Immature Granulocyte (auto 0.03 K/uL (0-1) Nucleated Red Blood Cells 0.0 % (0.0-0.19) White Cell Morphology Comment See comments Lactic Acid Level 2.3 mmol/L (0.8-2.5) Troponin I High Sensitivity 391 ng/L (4-50) *H Sodium Level 136 mmol/L (136-145) Potassium Level 6.0 mmol/L (3.5-5.1) *H Chloride Level 101 mmol/L (101-111) Carbon Dioxide Level 23 mmol/L (21-32) Blood Urea Nitrogen 55 mg/dL (7-18) H Creatinine 8.3 mg/dL (0.5-1.0) *H Glomerular Filtration Rate Calc 4 mL/min (>90) Random Glucose 86 mg/dL (70-105) Total Calcium 9.4 mg/dL (8.5-10.1) Total Creatine Kinase 230 U/L (21-232) Whole Blood Glucose 78 MG/DL (70-110) Urine Color YELLOW (YELLOW) Urine Appearance CLEAR (CLEAR) Urine pH 5.5 (5.0-8.0) Urine Specific [place] Range 1.016 (1.001-1.031) Urine Protein 100 mg/dL (NEGATIVE) H Urine Glucose (UA) NEGATIVE mg/dL (NEGATIVE) Urine Ketones NEGATIVE mg/dL (NEGATIVE) Urine Occult Blood +- (TRACE) (NEGATIVE) H Urine Nitrate NEGATIVE (NEGATIVE) Urine Bilirubin NEGATIVE mg/dL (NEGATIVE) Urine Urobilinogen 0.2 mg/dL (0.2-1.0) Urine Leukocyte Esterase 75 Francisco Javier/uL (NEGATIVE) H Urine RBC 0-1 /HPF (0-1) Urine WBC 11-25 /HPF (0-1) H Urine Squamous Epithelial Cells RARE /HPF (0-2) Urine Non-Squamous Epithelial Cells 1 /HPF (0-2) Urine Bacteria None /HPF (None Seen) Test 10/09/24 23:23 10/10/24 00:33 Lactic Acid Level 2.4 mmol/L (0.8-2.5) Troponin I High Sensitivity 377 ng/L (4-50) *H Influenza Type A Antigen Negative For Type A Influenza Type B Antigen Negative For Type B SARS-CoV-2, RNA, NAAT NEGATIVE SARS CoV-2 Group A Streptococcus Rapid negative (NEGATIVE) Labs Reviewed?: Yes EKG/XRAY/US/CT/MRI EKG Comment 10/09/2024 time 8:00 p.m. Ventricular rate 107 Sinus tachycardia [place] [address] wave elevation or depression MDM MDM: Differential diagnosis: hyperkalemia, ACS, UTI, Rationale: Tests considered and ordered secondary to shared decision making include: Previous outside records reviewed: Old ER visits. Risk of complication and/or morbidity or mortality of patient management: None Medications-Per medication reconciliation Need for hospitalization: Patient does meet criteria for hospitalization. Need for emergency major/minor surgery: No There are no social concerns with this patient. Prescription drug management Prescriptions will include symptomatic care Patient's prior external medical records from other ER visits were reviewed by me as indicated. Prior testing and results from previous visits were reviewed. Prior tests were taken into account with medical decision making and resource utilization, independent historian/historians were used to obtain complete me dical history. I independently interpreted the test that were performed, results were reviewed by me and considered findings on radiology if ordered. Medical management and examination interpretation discussions were had by me with other qualified healthcare professionals as indicated for the patient's care. Patient is a 84-year-old female coming in to be evaluated for sepsis pr esentation. Patient states that he has been having fever cough body aches for two days. On initial evaluation patient was tachycardic and febrile laboratory workup positive for elevated potassium at 6.0 she does have a history of end- stage renal disease and gets dialyzed Thursday the Fridays. Patient states that Dr. Carreon sinusitis with a environmental field office manager. Patient will be admitted for ongoing management of end-stage renal disease with hyperkalemia requiring dialysis. Dr. Whitehead is admitting physician ED Course Orders Procedure Category Date Status Time Cbc With Differential LAB 10/09/24 Complete 19:20 Blood Cult JELENA 10/09/24 In Process 19:20 Urinalysis Profile LAB 10/09/24 Complete 19:20 Culture Urine JELENA 10/09/24 Logged 19:20 Troponin I High LAB 10/09/24 Complete Sensitivity 19:20 Lactic Acid LAB 10/09/24 Complete 19:20 12 Lead Ekg Tracing- EKG 10/09/24 Complete Technical 19:20 Covid Rna Naat LAB 10/09/24 Complete 19:20 Influenza Type A & B, LAB 10/09/24 Complete Rapid 19:20 Rapid (Group A Strep) LAB 10/09/24 Complete 19:20 Acetaminophen 500mg PHA 10/09/24 Complete Tab (Tylenol 500mg T 20:00 Acetaminophen 500mg PHA 10/09/24 Complete Tab (Tylenol 500mg T 19:52 Ondansetron 4mg Inj PHA 10/09/24 Complete (Zofran 4mg Inj) 19:52 Basic Metabolic Panel LAB 10/09/24 Complete 19:57 Creatine Kinase, Total LAB 10/09/24 Complete 19:57 Ondansetron 4mg Inj PHA 10/09/24 Complete (Zofran 4mg Inj) 20:30 Dextrose 50%-Water PHA 10/09/24 Complete (Dextrose 50%-Water) 22:30 Insulin Regular, PHA 10/09/24 Complete Human 3ml (Humulin R 22:30 Albuterol 0.083% PHA 10/09/24 In Process 2.5mg/3ml (Proventil 22:30 Sodium Polystyr Sulf PHA 10/09/24 Complete 15gm (Kayexalate 15 22:30 Troponin I High LAB 10/09/24 Complete Sensitivity 22:25 Dextrose 50%-Water PHA 10/09/24 Complete (D50w) 22:50 Lactic Acid (Removed) LAB 10/09/24 Complete 22:54 Current Medications Medications (Trade) Dose Ordered Sig/Seble Route PRN Reason Start Time Stop Time Status Last Admin Dose Admin Acetaminophen (TYLenol 500MG TAB) 500 mg STK-MED ONCE .ROUTE 10/09/24 19:52 10/09/24 19:52 DC Acetaminophen (TYLenol 500MG TAB) 1,000 mg ONCE ONCE PO 10/09/24 20:00 10/09/24 20:01 DC 10/09/24 20:07 Albuterol Sulfate (Proventil 0.083% 2.5mg/3ml) 10 mg ONCE IH 10/09/24 22:30 11/08/24 22:29 10/09/24 22:54 Dextrose (D50w) 50 ml STK-MED ONCE IV 10/09/24 22:50 10/09/24 22:50 DC Dextrose (Dextrose 50%-Water) 25 gm ONCE ONCE IV 10/09/24 22:30 10/09/24 22:31 DC 10/09/24 22:50 Insulin Human Regular (humuLIN R 100 UNIT/ML 3ML) 5 unit ONCE ONCE IV 10/09/24 22:30 10/09/24 22:31 DC 10/09/24 22:55 Ondansetron HCl (zoFRAN 4MG INJ) 4 mg ONCE ONCE IVP 10/09/24 20:30 10/09/24 20:31 DC 10/09/24 21:01 Ondansetron HCl (zoFRAN 4MG INJ) 4 mg STK-MED ONCE .ROUTE 10/09/24 19:52 10/09/24 19:53 DC Sodium Polystyrene Sulfonate (kayEXALate 15 GM/60 ML) 15 gm Q2H PO 10/09/24 22:30 10/10/24 00:31 DC 10/09/24 22:54 Vital Signs Date Time Temp Pulse Resp B/P (MAP) Pulse Ox O2 Delivery O2 Flow Rate FiO2 10/09/24 23:17 99.7 98 20 120/46 98 Room Air* 0 21 10/09/24 22:55 97 17 10/09/24 20:07 101.5 10/09/24 19:25 101.5 107 20 192/58 100 Room Air* 0 21 10/09/24 19:19 101.1 103 20 164/68 100 0 10/09/24 19:18 101.1 103 20 164/68 100 Room Air* 0 21 Critical Care Note Comments Critical Care Procedure Note Authorized and Performed by: me Total critical care time: Approximately 36 minutes Due to a high probability of clinically significant, life threatening deterioration, the patient required my highest level of preparedness to intervene emergently and I personally spent this critical care time directly and personally managing the patient. This critical care time included obtaining a history; examining the patient; pulse oximetry; ordering and review of studies; arranging urgent treatment with development of a management plan; evaluation of patient's response to treatment; frequent reassessment; and, discussions with other providers. This critical care time was performed to assess and manage the high probability of imminent, life-threatening deterioration that could result in multi-organ failure. It was exclusive of separately billable procedures and treating other patients and teaching time. Please see MDM section and the rest of the note for further information on patient assessment and treatment. DX & DISP Disposition: Inpatient Decision to Admit Time: 01:06 Departure Impression: Primary Impression: Hyperkalemia Additional Impressions: ESRD (end stage renal disease) on dialysis, UTI (urinary tract infection) Condition: Stable Referrals: NAHID RUIZ MD (PCP) LEENA FERRARA MD Oct 09, 2024 19:51
[2024-10-09 19:54] LABS: BASOPHILS # (AUTO) 0.03 K/uL (0.00-0.20); BASOPHILS % (AUTO) 0.4 % (0.0-5.0); EOSINOPHILS # (AUTO) 0.04 K/uL (0.00-0.70); EOSINOPHILS % (AUTO) 0.5 % (0.0-8.0); HEMATOCRIT 36.2 % (36-48); IMMATURE GRANULOCYTE ABSOLUTE 0.03 K/uL (0-1); LYMPHOCYTES # (AUTO) 0.2 K/uL (1.0-4.8); MEAN CORPUSCULAR HEMOGLOBIN 33.5 pg (27.0-33.0); MEAN CORPUSCULAR VOLUME 98.6 fL (79-99); MONOCYTES # (AUTO) 0.8 K/uL (0.1-1.0); MONOCYTES % (AUTO) 10.9 % (3.0-13.0); NEUTROPHILS # (AUTO) 6.3 K/uL (1.8-7.7); NEUTROPHILS % (AUTO) 84.8 % (40.0-77.0); PLATELET COUNT (AUTO) 147 K/uL (130-400); RED BLOOD CELL COUNT(AUTO) 3.67 MIL/uL (4.00-5.50); RED CELL DISTRIBUTION WIDTH 13.5 % (11.0-15.5); WHITE BLOOD COUNT (AUTO) 7.4 K/uL (4.8-10.8)
[2024-10-09] MEDS: acetaMINOPHEN 500 MG TABLET PO ONE (20:07)
--- NOTE | 2024-10-09 20:16 | EKG ---
[facility] Test Date: 2024-10-09 Test Time: 20:00:35 Pat Name: BRIGHT CHAPMAN Department: [facility] Room: ED Gender: F Student Assistance Counselor: [id number] : [id number] Requested By: LEENA FERRARA Order Number: [id number] Reading MD: Leticia Arthur Measurements Intervals Armstrong Rate: 107 P: 105 OR: 185 QRS: -26 QRSD: 104 T: 132 QT: 339 QTc: 451 Interpretive Statements Sinus tachycardia Atrial premature complex Consider anterolateral infarct Repol abnrm suggests ischemia, lateral leads No previous ECG available for comparison Electronically Signed On 10-10-2024 16:09:00 LEGAL PRACTICE MANAGER by Leticia Arthur Please click the below link to view image of tracing.
[2024-10-09] MEDS: ondanSETRON 4MG INJ IVP ONE (21:01)
[2024-10-09 21:16] LABS: CREATININE 8.3 mg/dL (0.5-1.0)
[2024-10-09] MEDS: acetaMINOPHEN 500 MG TABLET ONE (21:30)
[2024-10-09] MEDS: ondanSETRON 4MG INJ ONE (21:30)
[2024-10-09] MEDS: DEXTROSE 50%-WATER 25 GM/50 ML VIAL IV ONE (22:50)
[2024-10-09] MEDS: kayEXALate 15GM/60ML PO SCH (22:54)
[2024-10-09] MEDS: ALBUTEROL 0.083% 2.5 MG/3 ML INH IH SCH (22:54)
[2024-10-09 22:55] VITALS: PULSE 97; RESP 17
[2024-10-09] MEDS: DEXTROSE 50%-WATER 50 ML DISP.SYRIN IV ONE (22:55)
[2024-10-09] MEDS: INSULIN humuLIN R 100 UNIT/ML 3ML IV ONE (22:55)
[2024-10-09 22:58] LABS: APPEARANCE,URINE CLEAR (CLEAR); BILIRUBIN,URINE NEGATIVE (NEGATIVE); COLOR,URINE YELLOW (YELLOW); GLUCOSE, URINE (UA) NEGATIVE (NEGATIVE); KETONES,URINE NEGATIVE (NEGATIVE); LEUKOCYTE ESTERASE ,URINE 75 Leu/uL (NEGATIVE); NITRATE,URINE NEGATIVE (NEGATIVE); PH,URINE 5.5 (5.0-8.0); PROTEIN,URINE 100 mg/dL (NEGATIVE); UROBILINOGEN,URINE 0.2 mg/dL (0.2-1.0)
[2024-10-09 23:07] LABS: ADD UA MICROSCOPIC YES
[2024-10-09 23:12] LABS: NON-SQUAMOUS EPITHELIAL CELL 1 /HPF (0-2); RBC,URINE 0-1 /HPF (0-1); SQUAMOUS EPITHELIAL CELL,UR RARE /HPF (0-2)
[2024-10-10] VITALS (20 sets, daily range): BP systolic 96–165; BP diastolic 36–67; PULSE 71–96; RESP 16–20; TEMP 97.5–98.4; O2SAT 97
[2024-10-10 00:48] LABS: RAPID GROUP A STREP negative (NEGATIVE)
[2024-10-10 00:54] LABS: SARS-CoV-2, RNA, NAAT NEGATIVE SARS CoV-2 (NEGATIVE)
[2024-10-10 00:58] LABS: INFLUENZA TYPE A Negative For Type A (NEGATIVE); INFLUENZA TYPE B Negative For Type B (NEGATIVE)
[2024-10-10] MEDS ORDERED: GLUCAGON 1MG KIT 1 MG ML IM PRN (01:30)
[2024-10-10] MEDS ORDERED: DEXTROSE 50%-WATER 50 ML DISP.SYRIN IV PRN (01:30)
[2024-10-10] MEDS ORDERED: acetaMINOPHEN 325 MG TAB PO PRN (01:30)
[2024-10-10] MEDS: ZOSYN 3.375GM +NS 50ML IV SCH (01:37)
[2024-10-10] MEDS: acetaMINOPHEN 325 MG TAB PO PRN (01:37)
[2024-10-10] MEDS: ASPIRIN 81 MG EC TAB PO ONE (01:42)
[2024-10-10] MEDS: ASPIRIN 81MG CHEW TAB ONE (01:42)
[2024-10-10 02:12] LABS: HEMOGLOBIN A1C 4.8 % (4.0-6.0)
[2024-10-10] MEDS ORDERED: FAMO20TA8 PO (04:43)
[2024-10-10] MEDS ORDERED: ISOS60TA77 PO (04:43)
[2024-10-10] MEDS: INSULIN LISpro 100 UNIT/ML 3ML SQ SCH (07:23)
--- NOTE | 2024-10-10 07:29 | NUR ---
INPATIENT DIALYSIS CONTACTED SPOKE TO [facility]
[2024-10-10 08:10] LABS: HEMATOCRIT 33.8 % (36-48); MEAN CORPUSCULAR HEMOGLOBIN 33.1 pg (27.0-33.0); MEAN CORPUSCULAR HGB CONC 33.4 g/dL (32.0-36.0); MEAN CORPUSCULAR VOLUME 99.1 fL (79-99); RED BLOOD CELL COUNT(AUTO) 3.41 MIL/uL (4.00-5.50); RED CELL DISTRIBUTION WIDTH 13.8 % (11.0-15.5); WHITE BLOOD COUNT (AUTO) 5.2 K/uL (4.8-10.8)
[2024-10-10 08:25] LABS: POTASSIUM 4.9 mmol/L (3.5-5.1)
[2024-10-10 08:30] LABS: CREATININE 10.1 mg/dL (0.5-1.0)
--- NOTE | 2024-10-10 10:36 | NUR ---
PT COMPLAINTS OF 10/10 RIGHT HIP AND LEG PAIN THAT STARTED SUDDENLY, CRAMPING, WITH NAUSEA, PT PROVIDED WITH TYLENOL AND REPOSITIONING WILL CONTINUE TO MONITOR
--- NOTE | 2024-10-10 11:13 | NUR ---
DCP: HOME Reymundo Holt [phone] drives pt to [facility] for dialysis treatments. Pt states she is able to complete ADLS and ambulation on her own, has no DME or in home care services. PCP is Velma Dan and uses [facility] for rx. Discussed dcp, pt states she will return home with at tx. Addendum: 10/10/24 at 1120 by DARIUS MCFARLANE SS Amended: Links added.
[2024-10-10] MEDS: ondanSETRON 4MG INJ IVP PRN (11:38)
[2024-10-10] MEDS: morPHINE 2 MG SYG IVP PRN (11:38)
[2024-10-10] MEDS ORDERED: ALBUMIN (HUMAN) 25% 50 ML IV.SOLN. IV SCH (12:10)
[2024-10-10] MEDS: LIDOCAINE 5% TOPICAL PATCH TP ONE (12:43)
[2024-10-10] MEDS: 0.9%NACL 1000ML 1,000 ML IV SCH (12:51)
--- NOTE | 2024-10-10 15:08 | HMCIMG ---
CT LUMBAR SPINE W/O CONTRAST REASON: PAIN COMPARISON: None TECHNIQUE: Routine lumbar imaging protocol was performed with axial images from mid body T11 to the sacrum. Sagittal and coronal reconstruction images were then performed. FINDINGS: There is severe interspace narrowing at L3-4 with moderate narrowing at L2-3. There is severe narrowing at T12-L1 with moderate narrowing at L1-2. There is 3 mm anterior subluxation of L3 in relation to L2. There is 2 mm retrosubluxation of L4 in relation to L3. There are severe degenerative changes in the facets. There is severe spinal stenosis at L4-5 due to ligamentum flavum and facet hypertrophy as well as annular bulging, AP diameter the midline is approximately 4 mm. There is moderate narrowing at L3-4. There is moderate narrowing at L to 3 as well. Remaining interspaces appear preserved. There is no evidence of discrete focal disc herniation. Surrounding soft tissues appear unremarkable. IMPRESSION: 1. Marked degenerative disc disease with areas of subluxation as described. 2. Severe spinal stenosis at L4-5 on a degenerative basis, there is moderate stenosis at L to 3 and at L3-4.
--- NOTE | 2024-10-10 19:21 | NUR ---
TOOK OVER PATIENT AT THIS TIME
--- NOTE | 2024-10-10 20:12 | NUR ---
HOME MEDICATIONS WILL BE BROUGHT IN TOMMORROW MORNING BY PATIENT
[2024-10-10 22:06] LABS: HEPATITIS B SURFACE ANTIGEN Non-Reactive (Nonreactive); HEPATITIS C ANTIBODY Non-Reactive (Nonreactive)
[2024-10-10 22:07] LABS: HEPATITIS B CORE AB TOTAL Non-Reactive (Nonreactive)
[2024-10-10 22:50] LABS: HEPATITIS B SURFACE ANTIBODY Negative (Reactive)
[2024-10-11] VITALS (7 sets, daily range): BP systolic 105–166; BP diastolic 49–67; PULSE 68–75; RESP 16–20; TEMP 98–98.5; O2SAT 98
--- NOTE | 2024-10-11 05:47 | CONS ---
NEPHROLOGY CONSULTATION REASON FOR CONSULTATION: End-stage renal disease, on chronic hemodialysis. HISTORY OF PRESENT ILLNESS: The patient is an 84-year-old female with a history of end-stage renal disease, on chronic hemodialysis every Thursday, Thursday and Thursday; history of hypertension and partial colectomy secondary to incarcerated ventral hernia with colostomy, who presents with generalized weakness, severe cramping to lower extremity, nausea, vomiting. Upon arrival, the patient febrile to 101.1. Lab studies revealed an elevated potassium of 6.0. Nephrology consulted. The patient is being admitted for possible UTI, workup for fever, hyperkalemia and elevated troponin. Nephrology consulted for hemodialysis in the setting of hyperkalemia. The patient was evaluated in the ER this morning, did receive a cocktail for hyperkalemia with improvement in her symptoms. The patient has been adherent with her treatments and last treatment was on Thursday. REVIEW OF SYSTEMS: CONSTITUTIONAL: Reports fevers, chills. EYES: Denies any change in vision. EARS: Denies any ear pain. NOSE AND THROAT: Denies any congestion or sore throat. PULMONARY: Denies any cough, wheezing, shortness of breath. CARDIOVASCULAR: Denies any chest pain, palpitation, orthopnea or PND. GASTROINTESTINAL: Nausea and vomiting as per HPI with increase in output from the colostomy as well. HEMATOLOGY: Denies any acute blood loss. GENITOURINARY: Denies any gross hematuria or dysuria. MUSCULOSKELETAL: Right leg pain as per HPI. NEUROLOGIC: Denies any focal weakness. Complains of generalized weakness. PSYCHIATRIC: Denies anxiety, depression. PAST MEDICAL HISTORY: End-stage renal disease, on chronic hemodialysis; hypertension; history of uterine cancer; hypertensive heart disease; osteoarthritis; obstructive sleep apnea; coronary artery disease; carotid artery disease; hyperlipidemia; vitamin D deficiency; anemia; history of intracranial bleed; peripheral vascular disease; venous insufficiency; prediabetes; ventral hernia; status post partial colectomy and colostomy. PAST SURGICAL HISTORY: CABG, thyroidectomy, right shoulder surgery, cataract surgery, hysterectomy, left carotid endarterectomy, partial colectomy with colostomy. FAMILY HISTORY: Positive for Parkinson's and pancreatic cancer. SOCIAL HISTORY: The patient former smoker, although quit several years ago. No alcohol use. ALLERGIES: CODEINE. CURRENT MEDICATIONS: Have been reviewed. PHYSICAL EXAMINATION: CURRENT VITAL SIGNS: Temperature is 98.8, pulse 80, blood pressure 119/45, respiratory rate is 20, satting 97% on room air. GENERAL: The patient was evaluated in the ER. She is sitting up in bed, awake, alert, oriented, nontoxic appearing. HEENT: Anicteric sclerae. NECK: Supple. HEART: Regular rhythm and rate. CHEST: Clear, no wheeze, no rales. ABDOMEN: Slightly distended, but soft. Colostomy is in place. EXTREMITIES: No edema. NEUROLOGIC: Nonfocal. LABORATORY DATA: White count 5.2, hemoglobin 11.3, hematocrit 33.8, platelet count is 124. Sodium 138, potassium 4.9, chloride 101, bicarbonate is 20, BUN is 63, creatinine is 10.1, calcium is 9.2. ASSESSMENT: * End-stage renal disease, on chronic hemodialysis. * Hyperkalemia. * Hypertension. * Fever. * Urinary tract infection. * Anemia of chronic kidney disease. * Elevated troponin. * History of coronary artery disease. * History of colostomy with increase in output. PLAN: * End-stage renal disease. The patient will dialyze today per routine schedule 3-hour treatment, 2k bath, 2.5 calcium bath, UF, 1 liter as tolerated only, 300 blood flow rate, 600 dialysate flow rate. The patient will continue routine dialysis, Thursday, Thursday, Thursday, renal diet, fluid restriction. * Hyperkalemia, treated acutely in the Emergency Room with cocktail with improved numbers of this morning, 2k bath, renal diet. Continue routine dialysis and we will trend labs. * Hypertension. We will resume home medications, adjust accordingly. * Fever. Follow up cultures. She is being treated empirically for UTI. Renal dose all antibiotics. * Anemia of chronic kidney disease. We will hold Epogen at this time. * Elevated troponins. Monitor on telemetry. Chest pain free at this time. TID: [id number] RECEIPT: [id number]
--- NOTE | 2024-10-11 06:04 | HP ---
DATE OF SERVICE: 10/10/2024 PRESENTING COMPLAINT: Nausea, vomiting and fever. HISTORY OF PRESENT ILLNESS: An 84-year-old female with history of ESRD, on dialysis, diabetes mellitus, uterine cancer and CAD, who presented to hospital with one-day history of nausea and vomiting. The patient also complained of lower extremity pain. The patient has complained of fever. pain is worse after receiving dialysis . Imaging was done and was unremarkable. The patient also complained of fever. T-max in the Emergency Room was 101.5. Urinalysis came back positive. The patient claims she has been compliant with dialysis. No cough, no hemoptysis or pleuritic pain. The patient also complained of nausea and vomiting. . PAST MEDICAL HISTORY: * Hypertension. * Dyslipidemia. * ESRD. * Diabetes mellitus. * Uterine cancer. * Coronary artery disease. * Hypothyroidism. PAST SURGICAL HISTORY: * CABG. * Bladder surgery. * Colostomy placement. * PermCath placement. * AV fistula surgery. * Thyroidectomy. ALLERGIES: No known drug allergy. HOME MEDICATIONS: Reviewed. SOCIAL HISTORY: No alcohol, tobacco, or illicit drug use. FAMILY HISTORY: Positive for diabetes mellitus. REVIEW OF SYSTEMS: Greater than 10 systems were reviewed, negative except as documented above. PHYSICAL EXAMINATION: GENERAL: Elderly female, awake. VITAL SIGNS: Temperature 101.5, pulse 120, respiration 20, BP 155/51. EYES: No icterus. Pupils equal and reactive. HENT: No oral thrush seen. Moist oral mucosa. NECK: Supple, no JVD or thyromegaly. LUNGS: Good air entry. No rales, no rhonchi. CARDIOVASCULAR: S1, S2 regular. No murmur heard. ABDOMEN: Obese, soft, nontender. Bowel sound is present. CENTRAL NERVOUS SYSTEM: Awake, alert and oriented x 3. No focal deficits. SKIN: No rashes or itchiness. LYMPHATIC: No peripheral lymphadenopathy. HEMATOLOGIC: No bleeding or petechial lesion seen. MUSCULOSKELETAL: No joint swelling, erythema or tenderness. BACK: No deformity, no pressure ulcer. LABORATORY DATA: Troponin 391, was decreased to 377. Sodium 138, potassium 4.9, BUN 63, creatinine 10.1. WBC 5.2, hemoglobin 11.3, platelets 124. Urinalysis: WBC 25, leukocyte esterase 75. ASSESSMENT: An 84-year-old female presenting with fever. Current problems include: * Gram-negative sepsis. * Urinary tract infection. * Nausea and vomiting. * End-stage renal disease, on dialysis. * Elevated troponin, may be due to demand ischemia. * Possible lumbar radiculopathy. PLAN: * Admit the patient to medical floor. * Start the patient on Zosyn. * Obtain CT of the lumbar spine. * Troponin will be trended. * Nephrology evaluation for dialysis. * Tylenol as needed for pain. * Zofran as needed for nausea and vomiting. * Colostomy. * The patient will follow up closely. TID: [id number] RECEIPT: [id number]
--- NOTE | 2024-10-11 11:37 | PN ---
NEPHROLOGY FOLLOWUP NOTE INTERVAL HISTORY: The patient was evaluated in her room this morning, reports feeling better. Denies nausea, vomiting, abdominal pain, fevers, chills, chest pain, focal weakness. PHYSICAL EXAMINATION: CURRENT VITAL SIGNS: Temperature 98.2, pulse 69, blood pressure 111/67, respiratory rate is 18, satting 98% on room air. Underwent hemodialysis yesterday 600 mL removed only. GENERAL: The patient is resting comfortably. She is alert, she is oriented. CARDIAC: Regular rhythm and rate. CHEST: Clear. ABDOMEN: Slightly distended, but soft. Colostomy in place. EXTREMITIES: No edema. LABORATORY DATA: None for this morning. MICRO: Blood cultures x 2, no growth to date. Urine culture pending. ASSESSMENT: * End-stage renal disease, on chronic hemodialysis. * Hyperkalemia. * Hypertension. * Fever. * Urinary tract infection. * Anemia of chronic kidney disease. * Abnormal troponin. * History of coronary artery disease. * History of colostomy. PLAN: * End-stage renal disease. The patient will continue routine dialysis every Thursday, Thursday and Thursday during hospitalization. Continue renal diet and fluid restriction. * Hyperkalemia, improved lab studies. Continue with routine dialysis and renal diet. * Hypertension. Blood pressure is stable currently. * Fever. Blood cultures remain negative. Await urine culture. Renal dose antibiotics. * Anemia of chronic kidney disease. We will hold Epogen at this time given stable labs. TID: [id number] RECEIPT: [id number]
--- NOTE | 2024-10-11 11:43 | HMCIMG ---
MR SPINAL CANAL, LUMBAR WO CON REASON: Lumbar radiculopathy COMPARISON: CT lumbar spine 10/10/2024 TECHNIQUE: Routine lumbar MRI images were performed in the sagittal and axial plane. FINDINGS: There is marked disc degeneration at L3-4 with moderate narrowing at L1-2 and L2-3. T12-L1 is markedly narrowed as well. There is 3 to 4 mm anterior subluxation of L2 with relation to L1, there is 5 to 6 mm anterior subluxation of L3 in relation to L2 there is 5 mm anterior subluxation of L4 in relation to L5. Axial images show widely patent L5-S1 interspace. There is severe ligamentum flavum and facet hypertrophic changes at 4 5, there is also annular bulging. There is severe spinal stenosis, AP diameter in the mild line is 3 to 4 mm. There is mild bilateral lateral recess stenosis at L3-4, no midline stenosis identified. L2-3 shows mild right lateral recess stenosis, this level is otherwise unremarkable. There is no evidence of significant stenosis other than at L4-5. Neural foramina appear preserved. There are no acute appearing focal osseous lesions. IMPRESSION: 1. Severe spinal stenosis at L5-S1 on a degenerative basis.
--- NOTE | 2024-10-11 17:37 | PN ---
INFECTIOUS DISEASE PROGRESS NOTE Date of Service: Oct 11, 2024 SUBJECTIVE: This is a 84-year-old female patient who was seen and examined at bedside in room 302. Patient is awake, alert and oriented x 3. The lumbar spine MRI shows severe spinal stenosis at L5-S1. Patient was updated with these findings. Patient will need to follow with Dr Anjel Davis, neurosurgeon as outpatient. No reports of fever today, temperature is 98.1. Patient continues on Zosyn for UTI. Patient was dialyzed yesterday and 600 mL removed. Will continue to follow patient's care. PHYSICAL EXAM EYES: Anicteric. Pupils equal and reactive. HENT: No oral thrush seen, moist Oral mucosa NECK: Supple, no JVD or thyromegaly. LUNGS: Good air entry. No rales, no rhonchi. CARDIOVASCULAR: S1, S2 regular. No murmur heard. ABDOMEN: Soft, non tender, bowel sounds present, no organomegaly CENTRAL NERVOUS SYSTEM: Awake, alert, oriented x 3. No focal deficits. SKIN: No rashes, no swelling. LYMPHATICS: No peripheral lymphadenopathy MUSCULOSKELETAL: No joint swelling, erythema or tenderness. EXTREMITIES: No cyanosis or clubbing. Right lower extremity numbness. BACK: No deformity, no pressure ulcer. Back pain. GENITOURINARY: No dysuria or hematuria Vital Sign (Last 12 Hours) 10/11/24 10/11/24 10/11/24 10/11/24 08:02 10:12 12:01 16:00 Temp 98.2 98.2 98.1 Pulse 69 75 73 Resp 18 18 18 B/P (MAP) 111/67 105/49 166/56 Pulse Ox 98 98 96 100 O2 Delivery Room Air Room Air* Room Air Room Air O2 Flow Rate 0 FiO2 21 Intake & Output (last 24hrs) 10/10/24 10/10/24 10/11/24 15:00 23:00 07:00 Output Total 600 ml Balance -600 ml LABS: Laboratory: Test 10/11/24 14:57 10/10/24 11:19 10/10/24 07:59 10/10/24 00:33 Range/Units Whole Blood Glucose 95 70-110 MG/DL Hepatitis B Surface Antigen. Non-Reactive Nonreactive Hepatitis B Surface Antibody. Negative L Reactive Hepatitis B Core Total Antibody. Non-Reactive Nonreactive Hepatitis C Antibody Non-Reactive Nonreactive White Blood Count 5.2 # 4.8-10.8 K/uL Red Blood Count 3.41 L 4.00-5.50 MIL/uL Hemoglobin 11.3 L 12.0-16.0 g/dL Hematocrit 33.8 L 36-48 % Mean Corpuscular Volume 99.1 H 79-99 fL Mean Corpuscular Hemoglobin 33.1 H 27.0-33.0 pg Mean Corpuscular Hemoglobin Concent 33.4 32.0-36.0 g/dL Red Cell Distribution Width 13.8 11.0-15.5 % Platelet Count 124 L 130-400 K/uL Mean Platelet Volume 10.3 7.5-10.5 fL Nucleated Red Blood Cells 0.0 0.0-0.19 % Sodium Level 138 136-145 mmol/L Potassium Level 4.9 3.5-5.1 mmol/L Chloride Level 101 101-111 mmol/L Carbon Dioxide Level 20 L 21-32 mmol/L Blood Urea Nitrogen 63 H 7-18 mg/dL Creatinine 10.1 *H 0.5-1.0 mg/dL Glomerular Filtration Rate Calc 4 >90 mL/min Random Glucose 103 70-105 mg/dL Total Calcium 9.2 8.5-10.1 mg/dL Influenza Type A Antigen Negative For Type A NEGATIVE Influenza Type B Antigen Negative For Type B NEGATIVE SARS-CoV-2, RNA, NAAT NEGATIVE SARS CoV-2 NEGATIVE Group A Streptococcus Rapid negative NEGATIVE Test 10/09/24 23:23 10/09/24 20:46 10/09/24 20:27 10/09/24 19:45 Range/Units Lactic Acid Level 2.4 0.8-2.5 mmol/L Troponin I High Sensitivity 377 *H 4-50 ng/L Urine Color YELLOW YELLOW Urine Appearance CLEAR CLEAR Urine pH 5.5 5.0-8.0 Urine Specific [place] 1.016 1.001-1.031 Urine Protein 100 H NEGATIVE mg/dL Urine Glucose (UA) NEGATIVE NEGATIVE mg/dL Urine Ketones NEGATIVE NEGATIVE mg/dL Urine Occult Blood +- (TRACE) H NEGATIVE Urine Nitrate NEGATIVE NEGATIVE Urine Bilirubin NEGATIVE NEGATIVE mg/dL Urine Urobilinogen 0.2 0.2-1.0 mg/dL Urine Leukocyte Esterase 75 H NEGATIVE Francisco Javier/uL Urine RBC 0-1 0-1 /HPF Urine WBC 11-25 H 0-1 /HPF Urine Squamous Epithelial Cells RARE 0-2 /HPF Urine Non-Squamous Epithelial Cells 1 0-2 /HPF Urine Bacteria None None Seen /HPF Total Creatine Kinase 230 21-232 U/L Immature Granulocyte % (Auto) 0.4 0-1 % Neutrophils (%) (Auto) 84.8 H 40.0-77.0 % Lymphocytes (%) (Auto) 3.0 L 21.0-51.0 % Monocytes (%) (Auto) 10.9 3.0-13.0 % Eosinophils (%) (Auto) 0.5 0.0-8.0 % Basophils (%) (Auto) 0.4 0.0-5.0 % Neutrophils # (Auto) 6.3 1.8-7.7 K/uL Lymphocytes # (Auto) 0.2 L 1.0-4.8 K/uL Monocytes # (Auto) 0.8 0.1-1.0 K/uL Eosinophils # (Auto) 0.04 0.00-0.70 K/uL Basophils # (Auto) 0.03 0.00-0.20 K/uL Absolute Immature Granulocyte (auto 0.03 0-1 K/uL White Cell Morphology Comment See comments Hemoglobin A1c 4.8 4.0-6.0 % Estimated Average Glucose (eAG) 91 70-126 mg/dL DIAGNOSTICS / RADIOLOGY: PATIENT: 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 FINDINGS: There is marked disc degeneration at L3-4 with moderate narrowing at L1-2 and L2-3. T12-L1 is markedly narrowed as well. There is 3 to 4 mm anterior subluxation of L2 with relation to L1, there is 5 to 6 mm anterior subluxation of L3 in relation to L2 there is 5 mm anterior subluxation of L4 in relation to L5. Axial images show widely patent L5-S1 interspace. There is severe ligamentum flavum and facet hypertrophic changes at 4 5, there is also annular bulging. There is severe spinal stenosis, AP diameter in the mild line is 3 to 4 mm. There is mild bilateral lateral recess stenosis at L3-4, no midline stenosis identified. L2-3 shows mild right lateral recess stenosis, this level is otherwise unremarkable. There is no evidence of significant stenosis other than at L4-5. Neural foramina appear preserved. There are no acute appearing focal osseous lesions. IMPRESSION: 1. Severe spinal stenosis at L5-S1 on a degenerative basis. DICTATED BY: JONAH CHAPARRO MD DATE: 10/11/24 1137 ELECTRONICALLY SIGNED BY: JONAH CHAPARRO MD DATE: 10/11/24 1143 ASSESSMENT: Severe spinal stenosis at L5-S1. Urinary tract infection. End-stage renal disease, on dialysis. Diabetes mellitus. PLAN: Continue Zosyn IV. Continue pain management. Continue monitoring glucose levels. Continue dialysis as recommended by hunting sales associate. Discharge planning for tomorrow if stable. Patient will need to follow up with Dr. Anjel Davis, neurosurgeon as outpatient. This case was reviewed and discussed with my supervising physician and the above assessment and plan was formulated and agreed upon. ATTESTATION BY PHYSICIAN I have seen and examined the patient. I reviewed the documentation, medical decision making, and treatment plan as noted by the mid-level provider above. I agree with the findings and plan of care. EVGENY SCHULTZ MD, [employer] MA[employer]GER Oct 11, 2024 17:37
[2024-10-12] VITALS (21 sets, daily range): BP systolic 123–177; BP diastolic 51–65; PULSE 60–75; RESP 16–20; TEMP 97.7–98.2; O2SAT 98
[2024-10-12 05:21] LABS: BASOPHILS # (AUTO) 0.03 K/uL (0.00-0.20); BASOPHILS % (AUTO) 0.7 % (0.0-5.0); EOSINOPHILS # (AUTO) 0.11 K/uL (0.00-0.70); EOSINOPHILS % (AUTO) 2.4 % (0.0-8.0); HEMATOCRIT 33.9 % (36-48); IMMATURE GRANULOCYTE ABSOLUTE 0.02 K/uL (0-1); LYMPHOCYTES # (AUTO) 0.8 K/uL (1.0-4.8); LYMPHOCYTES % (AUTO) 18.4 % (21.0-51.0); MEAN CORPUSCULAR HEMOGLOBIN 33.4 pg (27.0-33.0); MEAN CORPUSCULAR HGB CONC 34.2 g/dL (32.0-36.0); MEAN CORPUSCULAR VOLUME 97.7 fL (79-99); MONOCYTES # (AUTO) 0.9 K/uL (0.1-1.0); MONOCYTES % (AUTO) 19.3 % (3.0-13.0); NEUTROPHILS # (AUTO) 2.6 K/uL (1.8-7.7); NEUTROPHILS % (AUTO) 58.8 % (40.0-77.0); PLATELET COUNT (AUTO) 127 K/uL (130-400); RED BLOOD CELL COUNT(AUTO) 3.47 MIL/uL (4.00-5.50); RED CELL DISTRIBUTION WIDTH 13.6 % (11.0-15.5); WHITE BLOOD COUNT (AUTO) 4.5 K/uL (4.8-10.8)
[2024-10-12 05:34] LABS: MAGNESIUM 2.1 mg/dL (1.80-2.40); POTASSIUM 4.1 mmol/L (3.5-5.1)
[2024-10-12 05:36] LABS: CREATININE 9.2 mg/dL (0.5-1.0)
[2024-10-12] MEDS ORDERED: HEParin 5,000 UNIT VIAL IRRIG SCH (14:15)
--- NOTE | 2024-10-12 16:38 | DS ---
DATE OF SERVICE: 10/12/2024. PRESENTING COMPLAINT: Weakness and lower back pain. HOSPITAL COURSE: This is an 84-year-old female with history of ESRD, on dialysis; hypertension; who presented to the hospital with nausea, vomiting, and fever. The patient was found with possible UTI and was admitted. Urinalysis was positive and urine culture shows mixed raisa. The patient complained of lower back pain. Had an MRI done, which showed severe spinal stenosis. The patient to be set up with Neurosurgery as an outpatient. The patient is doing well clinically. Tolerating orally. Fever has resolved. Blood culture shows no growth. FINAL DISCHARGE DIAGNOSES: * Possible gram-negative sepsis. * Urinary tract infection. * Nausea and vomiting. * End-stage renal disease, on dialysis. * Elevated troponin. * Lumbar radiculopathy. PLAN: * The patient to be discharged home. * The patient will be given Ceftin. * The patient to follow up with Dr. Anjel Ac in Neurosurgery [facility] at [facility]. * Follow up with Nephrology. * Follow up with primary care physician. * Continue colostomy care. * Tylenol as needed for pain or fever. TID: [id number] RECEIPT: [id number]
--- NOTE | 2024-10-12 18:00 | NUR ---
DISCHARGE PT PIV DC'D PT VERBALIZED UNDERSTANDING OF DISCHARGE INSTRUCTIONS PT GATHERED AND TOOK ALL BELONGINGS PT HAD NO FURTHER QUESTIONS UPON DISCHARGE PT WAS GIVEN DISC WITH CT AND MRI OF LUMBAR SPINE PT VERBALIZED UNDERSTANDING 0F TAKING DISC FOR NEURO CONSULT. PT WAS GIVEN APPOINTMENT DATE AND TIME FOR DR MORALES NEUROLOGY
--- NOTE | 2024-10-12 19:52 | PN ---
NEPHROLOGY FOLLOWUP NOTE INTERVAL HISTORY: The patient was evaluated this morning, continues with intermittent pain to right lower extremity. Imaging did reveal severe spinal stenosis at L5 and S1. Otherwise, denies any fevers, chills, cough, chest pain, palpitations, focal weakness. PHYSICAL EXAMINATION: CURRENT VITAL SIGNS: Temperature 98.2, pulse 69, blood pressure 123/65, respiratory rate is 17, satting 98% on room air. GENERAL: The patient is resting comfortably. She is awake, alert, oriented, in no apparent distress. CARDIAC: Regular rhythm and rate. CHEST: Clear. ABDOMEN: Soft, nontender. Colostomy in place. EXTREMITIES: No edema. LABORATORY DATA: Sodium 134, potassium is 4.1, chloride 93, bicarb is 24, BUN is 59, creatinine is 9.2, calcium is 7.5. White count is 4.5, hemoglobin 11.6, hematocrit 33.9, platelet count is 127. ASSESSMENT: * End-stage renal disease, on chronic hemodialysis. * Hyperkalemia. * Hypertension. * Hyponatremia. * Fever. * Urinary tract infection. * Lumbar stenosis. * Anemia of chronic kidney disease. * History of coronary artery disease. * History of colostomy. PLAN: * End-stage renal disease. We will dialyze today per routine schedule, 3-hour treatment, 2K bath, 2.5 calcium bath, 300 blood flow rate, 600 dialysate flow rate, 1 liter only as tolerated. Continue renal diet and fluid restriction. We will continue routine dialysis every Thursday, Thursday, and Thursday. * Hyperkalemia, stable labs. 2K bath today. Renal diet. * Hypertension. Blood pressure currently is stable. * Fever. Blood cultures, urine culture negative. Renal dose antibiotics. * Urinary tract infection, on antibiotics. * Anemia of chronic kidney disease. Hold Epogen at this time given stable labs. TID: [id number] RECEIPT: [id number]
== END 2024-10-12 18:43 | disposition home or self-care (01) | DRG 871 ==
LOC: EDH 19:17 → EDHIP 10-10 01:13 → 3AH 10-10 19:50
PROVIDERS: ADMIT Internal Medicine Infectious Disease; ATTEND Internal Medicine Infectious Disease
PROC: 5A1D70Z Performance of Urinary Filtration, Intermittent, Less than 6 Hours Per Day (ICD-10-PCS; principal; 2024-10-10)
PROC: 5A1D70Z Performance of Urinary Filtration, Intermittent, Less than 6 Hours Per Day (ICD-10-PCS; 2024-10-12)
DX: A41.50 Gram-negative sepsis, unspecified (principal); N18.6 End stage renal disease; N39.0 Urinary tract infection, site not specified; E87.1 Hypo-osmolality and hyponatremia; I12.0 Hypertensive chronic kidney disease with stage 5 chronic kidney disease or end stage renal disease; D63.1 Anemia in chronic kidney disease; E11.22 Type 2 diabetes mellitus with diabetic chronic kidney disease; E11.51 Type 2 diabetes mellitus with diabetic peripheral angiopathy without gangrene; E78.00 Pure hypercholesterolemia, unspecified; E87.5 Hyperkalemia; I25.10 Atherosclerotic heart disease of native coronary artery without angina pectoris; M48.061 Spinal stenosis, lumbar region without neurogenic claudication; E89.0 Postprocedural hypothyroidism; Z20.822 Contact with and (suspected) exposure to COVID-19; M48.07 Spinal stenosis, lumbosacral region; M54.16 Radiculopathy, lumbar region; Z80.0 Family history of malignant neoplasm of digestive organs; Z82.0 Family history of epilepsy and other diseases of the nervous system; Z83.3 Family history of diabetes mellitus; Z85.42 Personal history of malignant neoplasm of other parts of uterus; Z86.73 Personal history of transient ischemic attack (TIA), and cerebral infarction without residual deficits; Z87.891 Personal history of nicotine dependence; Z90.49 Acquired absence of other specified parts of digestive tract; Z90.710 Acquired absence of both cervix and uterus; Z93.3 Colostomy status; Z95.1 Presence of aortocoronary bypass graft; Z99.2 Dependence on renal dialysis; Z79.899 Other long term (current) drug therapy
CPT/HCPCS: 36415; 72131; 72148; 80048; 81001; 82550; 82948; 83036; 83605; 83735; 84484; 85025; 85027; 86704; 86706; 86803; 87040; 87086; 87340; 87635; 87804; 87880; 90935; 93005; 94640; G0378; J1644; J1815; J2270; J2405; J2543; J7070

== ENCOUNTER 2024-11-20 11:20 | Inpatient (IN) | payer MEDICARE ==
[~2024-11-20] VITALS: Ht 152.4 cm; Wt 54.7 kg
[~2024-11-20 11:20] MED LIST changes: +AEC81 PO; -ASPI-1005 PO; -CLOP-31 PO; +CLOP75TA32 PO; -FERR-63 PO; +FERS325 PO; -FOLI0.8T22 PO; +FOLI1 PO; -FOLI1CAP16 PO; +FOLI1TAB85 PO; +LISI2.5T13 PO
--- NOTE | 2024-11-20 12:23 | ERN ---
ED Note History of Present Illness Stated Complaint: GI BLEED Chief Complaint: Gi Problem Time Seen by MD: 11:24 Dictation: 84-year-old female presents to the ED for evaluation of rectal bleeding onset one day ago. Patient reports bright red blood and also episodes of black stools. Patient is coming from [facility] [place] and was sent by [facility] ER to ER transfer. Patient reports recent GI procedure. Allergies: Coded Allergies: codeine (Unverified Allergy, Unknown, 05/15/23) Uncoded Allergies: flu vaccine (Allergy, Unknown, 05/15/23) Home Meds Reported Medications Vit B Cmplx 3/FA/Vit C/Biotin ([facility] [place] Rx Tablet) 1 Mg-60 Mg-300 Mcg Tablet, 1 EACH PO DAILY, TAB 10/31/24 Clopidogrel Bisulfate (Clopidogrel) 75 Mg Tablet, 75 MG PO DAILY, TAB 10/31/24 Famotidine (Famotidine) 20 Mg Tablet, 20 MG PO BID, TAB 10/31/24 Atorvastatin Calcium (LIPITOR) 40 Mg Tablet, 40 MG PO DAILY, TAB 10/31/24 Aspirin (ASPIRIN 81 MG ECTAB) 81 Mg Ectab, 81 MG PO HS, TAB.EC 10/31/24 Folic Acid (Folvite) 1 Mg Tab, 1 MG PO HS, TAB 10/31/24 Ferrous Sulfate (Ferrous Sulfate) 325 Mg (65 Mg Iron) Ectab, 325 MG PO DAILY, TAB.EC 10/31/24 Calcium Acetate (Calcium Acetate) 667 Mg Capsule, 667 MG PO TIDMEALS, CAP 10/31/24 Lisinopril (Lisinopril) 2.5 Mg Tablet, 2.5 MG PO PCLUNCH, TAB 10/31/24 Isosorbide Mononitrate (Isosorbide Mononitrate ER) 60 Mg Tab.er.24h, 30 MG PO HS, TAB 10/10/24 [Vitamin B12] No Conflict Check, 1000 MCG PO HS 07/28/24 Ezetimibe (Ezetimibe) 10 Mg Tablet, 10 MG PO AM, TAB 05/14/23 Levothyroxine Sodium (Levothyroxine) 75 Mcg Capsule, 75 MCG PO ACBKFST, CAP 05/14/23 Past Medical History Past Medical History: CAD, Cancer, Diabetes-Type II, GI Bleed, High Cholesterol, Heart Disease, Hypertension, LA, Renal Failure Additional Past Medical Hx: HEMODIALYSIS, Surgical History: Appendectomy, Hysterectomy, CABG Surgical History Other: COLONOSCOPY, RSC PERMCATH, CARDIAC [place] AND STENT Review of System Dictation Constitutional: Negative for fever,chills, and weight loss Eyes: Negative for injury, pain,redness, and discharge ENT: Negative for injury,pain or swelling Cardiovascular: Negative for chest pain, palpitations, and edema Respiratory: Negative for shortness of breath, cough, and wheezing, Abdomen/GI: Positive for GI bleed Negative for abdominal pain, nausea, vomiting, diarrhea, and constipation Back: Negative for injury and pain : Negative for injury, bleeding and discharge MS/Extremity: Negative for injury and deformity Skin: Negative for rash, and discoloration Neuro: Negative for headache, weakness, numbness, tingling, and seizure Psych: Negative for suicide ideation, homicidal ideation, and hallucinations Initial Vital Sign VS Vital Signs Date Time Temp Pulse Resp B/P (MAP) Pulse Ox O2 Delivery O2 Flow Rate FiO2 11/20/24 11:22 97.5 84 16 144/60 99 Room Air 0 11/20/24 13:28 21 Physical Exam Dictation General: awake, alert, NAD, appears weak Head/Face: Normocephalic, atraumatic Eyes: PERRL, EOMI, vision at baseline ENT: oral cavity clear, TMs clear, no signs of infection Neck: Trachea midline, supple, no nuchal rigidity Cardiovascular: RRR, normal S1/S2, No MRGs, no JVD Respiratory: CTAB, no respiratory distress, No rales or wheezes Abdomen: Soft, non-tender, non-distended, normal bowel sounds, no guarding or rebound. Surgical site dressed with wound care dressing Skin: Warm, dry, normal turgor, pale MS/Extremity: Pulses equal, no cyanosis, neurovascular intact, FROM Neuro: COAx4, GCS 15, strength 5/5, CN 2-12 intact, normal cerebellar exam, normal gait, Psych: Normal behavior, mood, and affect normal Results (Laboratory/Radiology) Laboratory/Radiology Laboratory Tests Test 11/20/24 12:57 White Blood Count 7.3 K/uL (4.8-10.8) Red Blood Count 2.02 MIL/uL (4.00-5.50) L Hemoglobin 6.6 g/dL (12.0-16.0) *L Hematocrit 21.0 % (36-48) *L Mean Corpuscular Volume 104.0 fL (79-99) H Mean Corpuscular Hemoglobin 32.7 pg (27.0-33.0) Mean Corpuscular Hemoglobin Concent 31.4 g/dL (32.0-36.0) L Red Cell Distribution Width 26.0 % (11.0-15.5) H Platelet Count 257 K/uL (130-400) Mean Platelet Volume 10.0 fL (7.5-10.5) Immature Granulocyte % (Auto) 0.4 % (0-1) Neutrophils (%) (Auto) 69.9 % (40.0-77.0) Lymphocytes (%) (Auto) 13.3 % (21.0-51.0) L Monocytes (%) (Auto) 10.8 % (3.0-13.0) Eosinophils (%) (Auto) 5.2 % (0.0-8.0) Basophils (%) (Auto) 0.4 % (0.0-5.0) Neutrophils # (Auto) 5.1 K/uL (1.8-7.7) Lymphocytes # (Auto) 1.0 K/uL (1.0-4.8) Monocytes # (Auto) 0.8 K/uL (0.1-1.0) Eosinophils # (Auto) 0.38 K/uL (0.00-0.70) Basophils # (Auto) 0.03 K/uL (0.00-0.20) Absolute Immature Granulocyte (auto 0.03 K/uL (0-1) Nucleated Red Blood Cells 0.3 % (0.0-0.19) H Red Blood Cell Morphology See comments Prothrombin Time 10.8 SEC (9.6-11.6) Prothromb Time International Ratio 1.02 (0.85-1.15) Activated Partial Thromboplast Time 18.8 SEC (26.3-35.5) L Sodium Level 138 mmol/L (136-145) Potassium Level 4.5 mmol/L (3.5-5.1) Chloride Level 98 mmol/L (101-111) L Carbon Dioxide Level 30 mmol/L (21-32) Blood Urea Nitrogen 40 mg/dL (7-18) H Creatinine 6.5 mg/dL (0.5-1.0) H Glomerular Filtration Rate Calc 6 mL/min (>90) Random Glucose 88 mg/dL (70-105) Lactic Acid Level 2.0 mmol/L (0.8-2.5) Total Calcium 8.5 mg/dL (8.5-10.1) Total Bilirubin 0.7 mg/dL (0.2-1.0) Direct Bilirubin 0.2 mg/dL (0.0-0.3) Aspartate Amino Transf (AST/SGOT) 25 U/L (10-37) Alanine Aminotransferase (ALT/SGPT) 19 U/L (12-78) Alkaline Phosphatase 92 U/L (50-136) Total Creatine Kinase 38 U/L (21-232) # Troponin I High Sensitivity 136 ng/L (4-50) *H B-Type Natriuretic Peptide 636 pg/mL (0-100) H Total Protein 5.9 g/dL (6.0-8.3) L Albumin 3.2 g/dL (3.5-5.0) L Lipase 163 U/L (16-77) H Labs Reviewed?: Yes ED Course ED Course Orders Procedure Category Date Status Time 12 Lead Ekg Tracing- EKG 11/20/24 Logged Technical 12:03 B-Type Natriuretic LAB 11/20/24 Complete Peptide 12:03 Basic Metabolic Panel LAB 11/20/24 Complete 12:03 Blood Cult JELENA 11/20/24 In Process 12:03 Cbc With Differential LAB 11/20/24 Complete 12:03 Creatine Kinase, Total LAB 11/20/24 Complete 12:03 Hepatic Function Panel LAB 11/20/24 Complete 12:03 Lactic Acid LAB 11/20/24 Complete 12:03 Lipase LAB 11/20/24 Complete 12:03 Pt And Ptt LAB 11/20/24 Complete 12:03 Troponin I High LAB 11/20/24 Complete Sensitivity 12:03 Urinalysis Profile LAB 11/20/24 Logged 12:03 Chest 1vw RAD 11/20/24 Resulted 12:03 Ct Abd/Pel Wo Con CT 11/20/24 Resulted Renal/Appy 12:04 Ceftriaxone 2gm Vial PHA 11/20/24 Complete (Rocephin 2gm Inj) 12:30 Pantoprazole 40mg Inj PHA 11/20/24 Complete (Protonix 40mg Inj 12:30 Rbc-Active Bleeding BBK 11/20/24 In Process 13:35 Type And Screen BBK 11/20/24 In Process 13:35 Current Medications Medications (Trade) Dose Ordered Sig/Seble Route PRN Reason Start Time Stop Time Status Last Admin Dose Admin Ceftriaxone Sodium (Rocephin 2gm Inj) 2 gm ONCE ONCE IVPB 11/20/24 12:30 11/20/24 12:31 DC Pantoprazole Sodium (PROTonix 40MG INJ) 80 mg ONCE ONCE IVP 11/20/24 12:30 11/20/24 12:31 DC Vital Signs Date Time Temp Pulse Resp B/P (MAP) Pulse Ox O2 Delivery O2 Flow Rate FiO2 11/20/24 13:28 78 20 123/27 100 Room Air* 0 21 11/20/24 11:22 97.5 84 16 144/60 99 Room Air 0 Medical Decision Making MDM MDM: Differential diagnosis: GI bleed, anemia 1441- Dr. Whitehead, consult accepts patient for admission Rationale: Tests considered and ordered secondary to shared decision making include: labs, ECG and radiology Previous outside records reviewed: Old ER visits. Risk of complication and/or morbidity or mortality of patient management: None Medications-Per medication reconciliation Need for hospitalization: Patient does meet criteria for hospitalization. Need for emergency major/minor surgery: No There are no social concerns with this patient. Patient's prior external medical records from other ER visits were reviewed by me as indicated. Prior testing and results from previous visits were reviewed. Prior tests were taken into account with medical decision making and resource utilization, independent historian/historians were used to obtain complete medical history. I independently interpreted the test that were performed, results were reviewed by me and considered findings on radiology if ordered. Medical management and examination interpretation discussions were had by me with other qualified healthcare professionals as indicated for the patient's care. Critical Care Note Critical Time: other (Total critical care time was 33 minutes. Excluding time for procedures. Management of critically ill patient with concern for acute decompensation. Management included interpretation of laboratory values and imaging, hemodynamics, time for consultation with consultants and admitting phy sician.) DX & DISP Disposition: Inpatient Decision to Admit Date: Nov 20, 2024 Decision to Admit Time: 14:41 Departure Impression: Primary Impression: Severe anemia Additional Impression: GI bleed Condition: Stable Referrals: NAHID RUIZ MD (PCP) KIA MCKINNEY MD Nov 20, 2024 12:23
--- NOTE | 2024-11-20 12:53 | HMCIMG ---
CT ABD/PEL WO CON RENAL/APPY INDICATION: post op pain TECHNIQUE: CT ABD/PEL WO CON RENAL/APPY. Oral contrast was not given. Coronal and sagittal reformats were performed. CT was performed with one or more of the following dose reduction techniques: Automated exposure control, adjustment of the mA and/or kV according to the patient's size, or use of the iterative reconstruction technique. Comparison: 11/06/2024 FINDINGS: The noncontrast nature this study limits evaluation of abdominal viscera. No pulmonary consolidation or pleural effusion is seen. Unremarkable liver. Distended gallbladder with gallstones. Stable appearance of the spleen, pancreas and adrenal glands. There is no hydronephrosis. Hysterectomy changes are noted. Underdistention versus mild urinary bladder wall thickening. Correlate with urinalysis. Postop changes of colostomy reversal is seen. No bowel obstruction is identified. 7.9 x 3.9 cm complex fluid collection seen in the right mid abdominal wall concerning for post op seroma, hematoma versus abscess. Correlate clinically. Appendix is not clearly visualized limiting evaluation. Correlate clinically. Atherosclerotic changes of the aorta with calcified plaques. Degenerative changes of the spine are seen. IMPRESSION: 1. Underdistention versus mild urinary bladder wall thickening. Correlate with urinalysis. 2. Postop changes of colostomy reversal is seen. No bowel obstruction is identified. 3. 7.9 x 3.9 cm complex fluid collection seen in the right mid abdominal wall concerning for post op seroma, hematoma versus abscess. Correlate clinically. 4. Distended gallbladder with gallstones. Correlate clinically..
[2024-11-20 13:09] LABS: BASOPHILS # (AUTO) 0.03 K/uL (0.00-0.20); BASOPHILS % (AUTO) 0.4 % (0.0-5.0); EOSINOPHILS # (AUTO) 0.38 K/uL (0.00-0.70); EOSINOPHILS % (AUTO) 5.2 % (0.0-8.0); IMMATURE GRANULOCYTE ABSOLUTE 0.03 K/uL (0-1); LYMPHOCYTES % (AUTO) 13.3 % (21.0-51.0); MEAN CORPUSCULAR HEMOGLOBIN 32.7 pg (27.0-33.0); MEAN CORPUSCULAR HGB CONC 31.4 g/dL (32.0-36.0); MONOCYTES # (AUTO) 0.8 K/uL (0.1-1.0); MONOCYTES % (AUTO) 10.8 % (3.0-13.0); NEUTROPHILS # (AUTO) 5.1 K/uL (1.8-7.7); NEUTROPHILS % (AUTO) 69.9 % (40.0-77.0); NUCLEATED RED BLOOD CELLS 0.3 % (0.0-0.19); PLATELET COUNT (AUTO) 257 K/uL (130-400); RED BLOOD CELL COUNT(AUTO) 2.02 MIL/uL (4.00-5.50); WHITE BLOOD COUNT (AUTO) 7.3 K/uL (4.8-10.8)
[2024-11-20 13:26] LABS: B-TYPE NATRIURETIC PEPTIDE 636 pg/mL (0-100)
--- NOTE | 2024-11-20 13:26 | HMCIMG ---
INDICATION: cardiac workup TECHNIQUE: CHEST 1VW COMPARISON: None FINDINGS AND IMPRESSION: No acute consolidation or pleural effusion. Cardiac silhouette is within normal limits. Mild degenerative changes of the spine. Right permacath is in place. CABG changes are noted.
[2024-11-20 13:27] LABS: CREATININE 6.5 mg/dL (0.5-1.0); POTASSIUM 4.5 mmol/L (3.5-5.1)
[2024-11-20 13:32] LABS: ALBUMIN 3.2 g/dL (3.5-5.0); BILIRUBIN,DIRECT 0.2 mg/dL (0.0-0.3); BILIRUBIN,TOTAL 0.7 mg/dL (0.2-1.0); TOTAL PROTEIN, SERUM 5.9 g/dL (6.0-8.3)
[2024-11-20 14:02] LABS: INR 1.02 (0.85-1.15); PROTHROMBIN TIME 10.8 SEC (9.6-11.6)
[2024-11-20 14:05] LABS: PARTIAL THROMBOPLASTIN TIME 18.8 SEC (26.3-35.5)
[2024-11-20] MEDS: PANTOPrazole 40 MG/VIAL IVP ONE (15:31)
[2024-11-20] MEDS: CEFTRIAXONE 2GM VIAL IVPB ONE (15:32)
--- NOTE | 2024-11-20 16:19 | NUR ---
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 HOLLINGSOWRTH RECENT, CALL TOMORROW AT [phone] SCHULTZ.
[2024-11-20] MEDS ORDERED: ondanSETRON 4MG TABLET PO PRN (16:30)
[2024-11-20] MEDS: INSULIN LISpro 100 UNIT/ML 3ML SQ SCH (16:30)
[2024-11-20] MEDS ORDERED: acetaMINOPHEN 325 MG TAB PO PRN (16:30)
[2024-11-20 16:51] LABS: HEMATOCRIT 19.7 % (36-48)
--- NOTE | 2024-11-20 20:05 | EKG ---
[facility] Test Date: 2024-11-20 Test Time: 13:58:54 Pat Name: BRIGHT CHAPMAN Department: EDHIP Room: 324 Gender: F [employer]: [id number] : 1940 Requested By: KIA MCKINNEY Order Number: [id number] Reading MD: Francois Pabon Measurements Intervals Roby Rate: 75 P: -21 MI: 174 QRS: -21 QRSD: 93 T: 134 QT: 389 QTc: 436 Interpretive Statements Sinus rhythm LVH with secondary repolarization abnormality Compared to ECG 10/31/2024 16:12:11 Q waves no longer present Electronically Signed On 11-22-2024 23:16:21 CDT by Francois Pabon Please click the below link to view image of tracing.
[2024-11-20 21:02] LABS: APPEARANCE,URINE CLEAR (CLEAR); BILIRUBIN,URINE NEGATIVE (NEGATIVE); COLOR,URINE LIGHT-YELLOW (YELLOW); GLUCOSE, URINE (UA) NEGATIVE (NEGATIVE); KETONES,URINE NEGATIVE (NEGATIVE); LEUKOCYTE ESTERASE ,URINE 25 Leu/uL (NEGATIVE); NITRATE,URINE NEGATIVE (NEGATIVE); OCCULT BLOOD,URINE LARGE (NEGATIVE); PH,URINE 6.5 (5.0-8.0); PROTEIN,URINE 30 mg/dL (NEGATIVE); UROBILINOGEN,URINE 0.2 mg/dL (0.2-1.0)
[2024-11-20 21:03] LABS: ADD UA MICROSCOPIC YES
[2024-11-20 21:06] LABS: BACTERIA,URINE RARE /HPF (None Seen); MUCUS,URINE RARE LPF (None Seen); NON-SQUAMOUS EPITHELIAL CELL <1 /HPF (0-2); SQUAMOUS EPITHELIAL CELL,UR RARE /HPF (0-2); YEAST,URINE BUDDING RARE /HPF (None Seen)
--- NOTE | 2024-11-20 21:40 | HP ---
DATE OF SERVICE: 11/20/2024 HISTORY AND PHYSICAL PRESENTING COMPLAINT: Rectal bleeding. HISTORY OF PRESENT ILLNESS: This is an 84-year-old female with history of hypertension; diabetes mellitus; uterine cancer; ESRD, on dialysis. [facility] The patient brought in with one day symptoms of rectal bleeding. The patient denies hematemesis. No dysuria or melanotic stool. No bleeding tendencies prior to admission. The patient denied dysuria or urinary frequency. No chest pain, no palpitation, no orthopnea. No history of use of anticoagulation. The patient has history of colostomy reversal few weeks ago. PAST MEDICAL HISTORY: * Hypertension. * Diabetes mellitus. * Dyslipidemia. * Uterine cancer. * Coronary artery disease. * Hypothyroidism. * ESRD. PAST SURGICAL HISTORY: * Colectomy. * Colostomy takedown. * CABG. * Bladder surgery. * Cholecystectomy. ALLERGIES: No known drug allergies. HOME MEDICATIONS: Reviewed. SOCIAL HISTORY: No alcohol, tobacco or illicit drug use. FAMILY HISTORY: Positive for diabetes mellitus. REVIEW OF SYSTEMS: CONSTITUTIONAL: No fever or chill. No weight loss or night sweats. EYES: No eye pain. No photophobia or diplopia. HENT: No sore throat, no rhinorrhea. NECK: No neck pain or neck swelling. RESPIRATORY: No cough, no hemoptysis or pleuritic pain. CARDIOVASCULAR: No chest pain. No palpitation or orthopnea. GASTROINTESTINAL: Denies nausea or vomiting. Positive for rectal bleeding. GENITOURINARY: No dysuria, urgency or urinary frequency. CENTRAL NERVOUS SYSTEM: No headache, dyspnea or slurred speech. PSYCHIATRY: No depression. No suicidal ideation. MUSCULOSKELETAL: No joint pain or joint swelling. PHYSICAL EXAMINATION: GENERAL: Elderly female, awake. VITAL SIGNS: Temperature 97.9, pulse 70, respiratory rate 20, BP 120/72. EYES: No icterus. Pupils equal and reactive. HENT: No oral thrush seen. Moist oral mucosa. NECK: Supple, no JVD or thyromegaly. LUNGS: Good air entry. No rales, no rhonchi. CARDIOVASCULAR: S1, S2 regular. No murmur heard. ABDOMEN: Full, soft. Bowel sounds are present. with symptoms involving the right side of the abdominal wall. CENTRAL NERVOUS SYSTEM: Awake, alert, oriented x 3. No focal deficits. SKIN: No rashes, no itchiness. LYMPHATIC: No peripheral lymphadenopathy. BACK: No deformity, no pressure ulcer. LABORATORY DATA: Troponin 136. Sodium 138, potassium 4.5, BUN 48, creatinine 6.5. WBC 7.3, hemoglobin 6.6, platelet 257. RADIOLOGY: CT of the abdomen and pelvis showed a 7.9 x 3.9 fluid collection in the right abdomen/pelvic wall. ASSESSMENT: An 84-year-old female [facility] with rectal bleeding. CURRENT PROBLEMS: Include: * Possible gastrointestinal bleed. * Anemia. * Possible postoperative hematoma. * Diabetes mellitus. * End-stage renal disease, on dialysis. * Hypertension. * Coronary artery disease. * Elevated troponin. * Hypothyroidism. PLAN: * The patient admitted to medical floor. * Troponin will be trended. *The patient will be given 1 unit of PRBC. * Monitor hemoglobin. * The patient will be placed on Protonix. * General surgery evaluation. * Nephrology evaluation for dialysis. * ADA diet. * Insulin sliding scale. * Home medication will be reconciled. Thank you for allowing me to participate in the care of this patient. TID: [id number] RECEIPT: [id number] [facility]ITAL[facility]bra[facility]
[2024-11-21] VITALS (15 sets, daily range): BP systolic 107–160; BP diastolic 30–52; PULSE 67–82; RESP 14; TEMP 97.8–98
[2024-11-21 00:47] LABS: BASOPHILS # (AUTO) 0.05 K/uL (0.00-0.20); BASOPHILS % (AUTO) 0.7 % (0.0-5.0); EOSINOPHILS # (AUTO) 0.47 K/uL (0.00-0.70); EOSINOPHILS % (AUTO) 6.2 % (0.0-8.0); HEMATOCRIT 24.5 % (36-48); IMMATURE GRANULOCYTE ABSOLUTE 0.04 K/uL (0-1); LYMPHOCYTES # (AUTO) 1.2 K/uL (1.0-4.8); MEAN CORPUSCULAR HGB CONC 32.7 g/dL (32.0-36.0); MONOCYTES # (AUTO) 0.9 K/uL (0.1-1.0); MONOCYTES % (AUTO) 11.5 % (3.0-13.0); NEUTROPHILS % (AUTO) 65.1 % (40.0-77.0); PLATELET COUNT (AUTO) 192 K/uL (130-400); RED CELL DISTRIBUTION WIDTH 21.3 % (11.0-15.5); WHITE BLOOD COUNT (AUTO) 7.6 K/uL (4.8-10.8)
[2024-11-21 00:58] LABS: CREATININE 7.2 mg/dL (0.5-1.0); MAGNESIUM 1.7 mg/dL (1.80-2.40); POTASSIUM 4.2 mmol/L (3.5-5.1)
[2024-11-21] MEDS: PANTOPrazole 40 MG/VIAL IVP SCH (08:37)
--- NOTE | 2024-11-21 10:17 | CONS ---
COLORECTAL CONSULTATION NOTE Date of Consultation: Nov 21, 2024 Time of Consultation: 10:16 History of Present Illness: This is an 84-year-old female who is known to services who recently underwent colostomy closure 11/02/2024. She presented to the hospital due to hematochezia. She has a past medical history of hernia repair with partial colectomy due to diverticular disease. Colostomy was placed. She has a past medical history of dialysis which was done today. Imaging was done which revealed postop changes of colostomy reversal. There was a 7.9 x 3.9 cm complex fluid collection in the right mid abdominal wall concerning for postop seroma, hematoma versus abscess. She was assessed at bedside and fluid collection was assessed. There was no drainage or pain at the site. Review of Systems: CONSTITUTIONAL: No malaise or change in sensation of wellbeing. ENMT: No rhinorrhea, otorrhea, sinus pain, ear ache. CARDIOVASCULAR: No angina, palpitations, orthopnea or paroxysmal dyspnea. RESPIRATORY: No SOB. GASTROINTESTINAL: No abdominal pain, nausea, vomiting, diarrhea, hematemesis, melena or change in the patient's habitual bowel movements consistency/number. GENITOURINARY: No dysuria, hematuria or change in bladder continence. MUSCULOSKELETAL: No new muscle pain or decrease in muscular strength. No new joint swelling, redness or tenderness. SKIN: No new rash. Past Medical History: PAST MEDICAL HISTORY: * Hypertension. * Diabetes mellitus. * Dyslipidemia. * Uterine cancer. * Coronary artery disease. * Hypothyroidism. * ESRD. PAST SURGICAL HISTORY: * Colectomy. * Colostomy takedown. * CABG. * Bladder surgery. * Cholecystectomy. ALLERGIES: No known drug allergies. HOME MEDICATIONS: Reviewed. SOCIAL HISTORY: No alcohol, tobacco or illicit drug use. FAMILY HISTORY: Positive for diabetes mellitus. Coded Allergies: codeine (Unverified Allergy, Unknown, 05/15/23) Uncoded Allergies: flu vaccine (Allergy, Unknown, 05/15/23) Physical Exam: GEN: Awake, alert, oriented in person, time and place, and in no acute distress. HEENT: No sinus tenderness. Tympanic membranes were not examined. No rhinorrhea. Oral pharyngeal mucosa is pink, moist and within normal limits. Neck is supple with no cervical lymphadenopathy, thyromegaly or JVD. CHEST: Inspection, palpation and percussion of the chest were unremarkable. Lung auscultation revealed normal breath sounds bilaterally. CARDIAC: PMI is within normal limits. Heart sounds are regular. Normal S1, S2. No gallop or murmur. ABD: Soft, non-tender and not distended. No peritoneal signs on palpation. No organomegaly. Normal bowel sounds. EXT: No cyanosis or clubbing. No edema. SKIN: Intact. No rashes. JOINTS: No evidence of synovitis or acute arthritis. NEURO: Alert and oriented to name, place and person. Cranial nerve examination is unremarkable. No focal motor deficits. Normal speech. Gait is normal. Strength is normal. Vital Sign (Last 24 Hours) 11/21/24 11/21/24 07:57 09:00 Temp 98.1 Pulse 82 Resp 14 B/P (MAP) 146/41 Pulse Ox 97 O2 Delivery Room Air O2 Flow Rate 0 FiO2 21 Laboratory: [ ] Laboratory: Test 11/21/24 08:03 11/21/24 00:42 11/20/24 20:52 11/20/24 12:57 Range/Units Whole Blood Glucose 67 L 70-110 MG/DL White Blood Count 7.6 4.8-10.8 K/uL Red Blood Count 2.50 #L 4.00-5.50 MIL/uL Hemoglobin 8.0 #L 12.0-16.0 g/dL Hematocrit 24.5 #L 36-48 % Mean Corpuscular Volume 98.0 79-99 fL Mean Corpuscular Hemoglobin 32.0 27.0-33.0 pg Mean Corpuscular Hemoglobin Concent 32.7 32.0-36.0 g/dL Red Cell Distribution Width 21.3 H 11.0-15.5 % Platelet Count 192 # 130-400 K/uL Mean Platelet Volume 10.1 7.5-10.5 fL Immature Granulocyte % (Auto) 0.5 0-1 % Neutrophils (%) (Auto) 65.1 40.0-77.0 % Lymphocytes (%) (Auto) 16.0 L 21.0-51.0 % Monocytes (%) (Auto) 11.5 3.0-13.0 % Eosinophils (%) (Auto) 6.2 0.0-8.0 % Basophils (%) (Auto) 0.7 0.0-5.0 % Neutrophils # (Auto) 5.0 1.8-7.7 K/uL Lymphocytes # (Auto) 1.2 1.0-4.8 K/uL Monocytes # (Auto) 0.9 0.1-1.0 K/uL Eosinophils # (Auto) 0.47 0.00-0.70 K/uL Basophils # (Auto) 0.05 0.00-0.20 K/uL Absolute Immature Granulocyte (auto 0.04 0-1 K/uL Nucleated Red Blood Cells 0.0 0.0-0.19 % Sodium Level 138 136-145 mmol/L Potassium Level 4.2 3.5-5.1 mmol/L Chloride Level 101 101-111 mmol/L Carbon Dioxide Level 29 21-32 mmol/L Blood Urea Nitrogen 49 H 7-18 mg/dL Creatinine 7.2 H 0.5-1.0 mg/dL Glomerular Filtration Rate Calc 5 >90 mL/min Random Glucose 118 H 70-105 mg/dL Total Calcium 7.8 L 8.5-10.1 mg/dL Magnesium Level 1.70 L 1.80-2.40 mg/dL Urine Color LIGHT-YELLOW YELLOW Urine Appearance CLEAR CLEAR Urine pH 6.5 5.0-8.0 Urine Specific [place] 1.008 1.001-1.031 Urine Protein 30 H NEGATIVE mg/dL Urine Glucose (UA) NEGATIVE NEGATIVE mg/dL Urine Ketones NEGATIVE NEGATIVE mg/dL Urine Occult Blood LARGE H NEGATIVE Urine Nitrate NEGATIVE NEGATIVE Urine Bilirubin NEGATIVE NEGATIVE mg/dL Urine Urobilinogen 0.2 0.2-1.0 mg/dL Urine Leukocyte Esterase 25 H NEGATIVE Francisco Javier/uL Urine RBC 2-5 H 0-1 /HPF Urine WBC 6-10 H 0-1 /HPF Urine Squamous Epithelial Cells RARE 0-2 /HPF Urine Non-Squamous Epithelial Cells <1 0-2 /HPF Urine Bacteria RARE None Seen /HPF Urine Yeast RARE None Seen /HPF Red Blood Cell Morphology See comments Prothrombin Time 10.8 9.6-11.6 SEC Prothromb Time International Ratio 1.02 0.85-1.15 Activated Partial Thromboplast Time 18.8 L 26.3-35.5 SEC Lactic Acid Level 2.0 0.8-2.5 mmol/L Total Bilirubin 0.7 0.2-1.0 mg/dL Direct Bilirubin 0.2 0.0-0.3 mg/dL Aspartate Amino Transf (AST/SGOT) 25 10-37 U/L Alanine Aminotransferase (ALT/SGPT) 19 12-78 U/L Alkaline Phosphatase 92 50-136 U/L Total Creatine Kinase 38 # 21-232 U/L Troponin I High Sensitivity 136 *H 4-50 ng/L B-Type Natriuretic Peptide 636 H 0-100 pg/mL Total Protein 5.9 L 6.0-8.3 g/dL Albumin 3.2 L 3.5-5.0 g/dL Lipase 163 H 16-77 U/L Current Medications Medications (Trade) Dose Ordered Sig/Seble Route PRN Reason Start Time Stop Time Status Last Admin Dose Admin Acetaminophen (TYLenol 325MG TAB) 650 mg Q6H PRN PO MILD PAIN (1-3) 11/20/24 16:30 12/20/24 16:29 Insulin Human Lispro (HumaLOG LISpro 100 UNIT/ML 3ML) INSULIN SLIDING SCAL... ACHS SQ 11/20/24 16:30 12/20/24 16:29 Ondansetron HCl (zoFRAN 4MG TABLET) 4 mg Q6H PRN PO NAUSEA/VOMITING 11/20/24 16:30 12/20/24 16:29 Pantoprazole Sodium (PROTonix 40MG INJ) 40 mg DAILY IVP 11/21/24 09:00 12/21/24 08:59 11/21/24 08:37 40 MG Sodium Chloride 1,000 ml @ 0 mls/hr ONCE IV 11/21/24 09:00 12/21/24 08:59 Diagnostics / Radiology: [COPY/PASTE HERE IF NO REPORTS PLEASE DELETE SECTION] Assessment: Hematochezia Colostomy closure Plan: Colonoscopy in am Continue GI prophylaxis Avoid NSAIDs Antireflux measures Monitor H&H and transfuse as needed Call with questions, concerns or change in clinical status Patient to follow-up at clinic post discharge Thank you for this consult GEETHA ROSAP Nov 21, 2024 10:17
[2024-11-21] MEDS: 0.9%NACL 1000ML 1,000 ML IV SCH (10:21)
[2024-11-21] MEDS: HEParin 5,000 UNIT VIAL IRRIG SCH (12:51)
--- NOTE | 2024-11-21 12:55 | NUR ---
DCP Patient states lives with Reymundo Holt, Spouse [phone] in a house and a walk in shower with bench but since October 26, 2024 she has been at [facility] status post a colostomy removal for occupational therapy and physical therapy. States she is retired, remains independent and drives self. States able to complete ADL's on her own. States she has a regular walker, walker with a seat, wheelchair and lift available, denies use. Denies home health services and home care provider services. States she has dialysis Mondays, Wednesdays and Fridays at [facility]. PCP - Lucy Aguilera MD Pharmacy - [facility]. Upon discharge, Reymundo Holt, Spouse [phone] Patient states she wants to go home after when discharged. Addendum: 11/21/24 at 1337 by CLIFFORD GIRALDO RN CM Amended: Links added.
--- NOTE | 2024-11-21 13:39 | NUR ---
DIALYSIS COMPLETED. 1 L REMOVED OVER 3 HOURS.
[2024-11-21] MEDS: PEG 3350/NA SULF,BICARB,CL/KCL 4000 ML SOLN PO ONE ×2 (15:00→22:08)
[2024-11-21 16:17] LABS: HEPATITIS B CORE AB TOTAL Non-Reactive (Nonreactive); HEPATITIS B SURFACE ANTIGEN Non-Reactive (Nonreactive); HEPATITIS C ANTIBODY Non-Reactive (Nonreactive)
--- NOTE | 2024-11-21 16:25 | CONS ---
NEPHROLOGY CONSULTATION REASON FOR CONSULTATION: End-stage renal disease, requiring hemodialysis. HISTORY OF PRESENT ILLNESS: The patient is an 84-year-old female with a history of end-stage renal disease, on chronic hemodialysis every Thursday, Thursday, and Thursday; hypertension; coronary artery disease; who presents to the ER for evaluation for rectal bleeding and weakness. Initial lab studies revealed a hemoglobin of 6.6, hematocrit of 21.0. The patient underwent transfusion and admitted for further workup. The patient dialyzed every Thursday, Thursday, and Thursday and has been adherent with her treatments. Nephrology has been consulted to assist with management with hemodialysis during hospitalization. The patient was evaluated in the emergency room this morning. She is generally weak appearing, although answering questions appropriately. Awaiting transfer up to the floor. REVIEW OF SYSTEMS: CONSTITUTIONAL: Denies any fevers or chills. Does report fatigue. EYES: Denies any change in her vision. EARS: Denies any ear pain or discharge. NOSE AND THROAT: No congestion or sore throat. PULMONARY: Denies any cough, wheezing, shortness of breath. CARDIOVASCULAR: Denies any chest pain, palpitations, orthopnea, or PND. GASTROINTESTINAL: Does report crampy abdominal pain, rectal bleeding as per HPI. GENITOURINARY: Denies any gross hematuria or dysuria. HEMATOLOGY: Denies any easy bruising. MUSCULOSKELETAL: Denies any erythematous joints or swollen joints. NEUROLOGIC: Denies any focal weakness or syncope. PSYCHIATRIC: Denies anxiety or depression. PAST MEDICAL HISTORY: End-stage renal disease, on chronic hemodialysis; history of uterine cancer; hypertension; hypertensive heart disease; lumbosacral radiculopathy; osteoarthritis; obstructive sleep apnea; coronary artery disease, status post CABG. Carotid artery disease; hyperlipidemia; vitamin D deficiency; anemia of chronic kidney disease; history of intracranial bleed; peripheral vascular disease; venous insufficiency; prediabetes; history of incarcerated ventral hernia; status post exploratory laparotomy with partial colectomy and colostomy, status post recent takedown. PAST SURGICAL HISTORY: Coronary artery bypass surgery, thyroidectomy, right shoulder surgery, cataract surgery, hysterectomy, left carotid endarterectomy, laparotomy with partial colectomy and colostomy and now with recent colostomy takedown. FAMILY HISTORY: Positive for Parkinson's, hypertension, history of pancreatic cancer. SOCIAL HISTORY: The patient is a former smoker. No alcohol use. ALLERGIES: CODEINE, FLU VACCINE. CURRENT MEDICATIONS: Have been reviewed. PHYSICAL EXAMINATION: CURRENT VITAL SIGNS: Temperature is 98.2, pulse 73, blood pressure 164/47, respiratory rate is 16, satting 97% on room air. GENERAL: The patient is resting comfortably. Generally, weak appearing. She is alert, she is oriented. HEENT: Anicteric sclerae. NECK: Flat JVD. Supple. HEART: Regular rhythm and rate. CHEST: Clear. ABDOMEN: Minimal discomfort. EXTREMITIES: No edema. LABORATORY DATA: White count 7.6, hemoglobin 8.0, hematocrit 24.5, platelet count is 192. Sodium is 138, potassium is 4.2, chloride 101, bicarbonate is 29, BUN is 49, creatinine 7.2, calcium is 7.8, magnesium is 1.7. ASSESSMENT: * End-stage renal disease, on chronic hemodialysis. * Hypertension. * Anemia. * Rectal bleeding. * Status post recent colostomy takedown, 11/02/2024. * History of coronary artery disease, status post coronary artery bypass grafting. * History of prediabetes. * Hypertensive heart disease. * Abnormal troponins. PLAN: * End-stage renal disease. Plan is to dialyze today per routine schedule and we will continue every Thursday, Thursday, and Thursday during hospitalization, 3-hour treatment, 300 blood flow rate, 600 dialysate flow rate, 2k bath, 2.5 calcium bath, UF 1 L only as tolerated. Renal diet, fluid restriction. * Hypertension. Hold antihypertensives on dialysis days and trend blood pressure. * Anemia, status post transfusion. Resume Epogen and we will trend labs. * Rectal bleed. Surgery has been consulted, await recommendations. * Abnormal troponins. The patient is chest pain free at this time. Cardiology has been consulted. TID: [id number] RECEIPT: [id number]
--- NOTE | 2024-11-21 17:00 | CONS ---
Cardiology consultation Date of service: November 21, 2024 Reason for consult: Preoperative evaluation prior to colonoscopy Referring MD: Dr. Whitehead HISTORY OF PRESENT ILLNESS: The patient is an 84-year-old female well known to me from prior inpatient and outpatient Cardiac evaluations last seen in the office October 21 2024. She has known coronary artery disease remote CABG status post Stenting of vein graft to the right coronary artery December 02, 2023 on dual antiplatelet therapy. She also has a history of Carotid stenosis peripheral vascular disease and chronic heart failure with preserved ejection fraction. Patient was admitted because of blood loss anemia status post transfusion related to hematochezia Which occurred after colostomy reversal. Patient denied any chest pain increasing shortness of breath or palpitations. EKG done showed sinus rhythm repolarization abnormalities. Cardiac troponin not elevated. REVIEW OF SYSTEMS: CONSTITUTIONAL: Denies any fevers or chills. Positive for fatigue. HEENT no blurring or dizziness or vision no dysphagia no sore throat PULMONARY: Denies any cough, wheezing, shortness of breath. CARDIOVASCULAR: Denies any chest pain, palpitations, orthopnea, or PND. GASTROINTESTINAL: Does report crampy abdominal pain, rectal bleeding as per HPI. GENITOURINARY: Denies any gross hematuria or dysuria. HEMATOLOGY: Denies any easy bruising. MUSCULOSKELETAL: Denies any erythematous joints or swollen joints. NEUROLOGIC: Denies any focal weakness or syncope. PSYCHIATRIC: Denies anxiety or depression. PAST MEDICAL HISTORY: As above in addition: End-stage renal disease, on chronic hemodialysis; history of uterine cancer; hypertension; hypertensive heart disease; lumbosacral radiculopathy; osteoarthritis; obstructive sleep apnea; peripheral vascular disease hyperlipidemia; vitamin D deficiency; anemia of chronic kidney disease; history of intracranial bleed; venous insufficiency; prediabetes; history of incarcerated ventral hernia; status post exploratory laparotomy with partial colectomy and colostomy, status post recent takedown. PAST SURGICAL HISTORY: Coronary artery bypass surgery, thyroidectomy, right shoulder surgery, cataract surgery, hysterectomy, left carotid endarterectomy, laparotomy with partial colectomy and colostomy and now with recent colostomy takedown. FAMILY HISTORY: Negative for premature coronary artery disease SOCIAL HISTORY: The patient is a former smoker. No alcohol use. ALLERGIES: CODEINE, FLU VACCINE. CURRENT MEDICATIONS: Aspirin 81 mg daily clopidogrel 75 mg p.o. daily atorvastatin 40 mg daily lisinopril 5 mg daily Imdur 60 mg daily metoprolol 25 mg daily Zetia 10 mg p.o. daily PHYSICAL EXAMINATION: CURRENT VITAL SIGNS: Temperature is 98.2, pulse 70, blood pressure 140/80 respiratory rate is 12 O2 saturation 97% on room air. GENERAL: The patient is resting comfortably. Generally, weak appearing. She is alert, she is oriented. HEENT: Anicteric sclerae. NECK: Flat JVD. Supple. HEART: Regular rhythm and rate normal S1 wide split S2 2/6 tricuspid regurgitation murmur. CHEST: Clear. No adventitious sounds ABDOMEN: Hyperactive bowel sounds no hepatosplenomegaly EXTREMITIES: No edema. Neuro exam: Nonfocal LABORATORY DATA: White count 7.6, hemoglobin 8.0, hematocrit 24.5, platelet count is 192. Sodium is 138, potassium is 4.2, chloride 101, bicarbonate is 29, BUN is 49, creatinine 7.2, calcium is 7.8, magnesium is 1.7. ASSESSMENT: 1. Admission symptomatic blood loss anemia 2. Stable angina with chronic coronary artery disease prior remote CABG status post stenting of the vein graft to the RCA November 19, 2023 3. Chronic compensated heart failure with preserved ejection fraction 4. Peripheral vascular disease 5. Carotid stenosis prior left endarterectomy PLAN: Regarding preoperative evaluation, proceed with colonoscopy with low ischemic risk. No cardiac contraindications. Regarding coronary artery disease heart failure and hypertension, resume metoprolol followed by lisinopril and then isosorbide as blood pressure tolerates Please reconsult should there be any angina symptoms or hemodynamic instability Patient History: Carcinomas SISTER (PANCREATIC/ BREAST) FH: Parkinson's disease Hypertension MOTHER Vitals/Labs Vital Signs Date Time Temp Pulse Resp B/P (MAP) Pulse Ox O2 Delivery O2 Flow Rate FiO2 11/21/24 12:55 97.9 70 14 130/37 Room Air 11/21/24 12:39 97 0 21 Laboratory Tests 11/21/24 00:42 Allergies: Coded Allergies: codeine (Unverified Allergy, Unknown, 05/15/23) Uncoded Allergies: flu vaccine (Allergy, Unknown, 05/15/23) MOLLY SOTO MD Nov 21, 2024 17:00
--- NOTE | 2024-11-21 17:17 | NUR ---
PT DOES NOT WANT TO START GOLYTELY UNTIL SHE IS IN A ROOM WITH A BATHROOM.
[2024-11-21] MEDS: EPOETIN ALFA-EPBX (NON-ESRD) 10,000 UNIT/ML VIAL SQ ONE (18:51)
[2024-11-21 23:11] LABS: HEPATITIS B SURFACE ANTIBODY Negative (Reactive)
--- NOTE | 2024-11-21 23:45 | PN ---
FOLLOWUP NOTE DATE OF SERVICE: 11/21/2024 SUBJECTIVE: The patient is seen and examined at bedside. No fever or chills. No nausea, no vomiting, no abdominal pain. No depression. No suicidal ideation. No heat or cold intolerance. No bleeding tendency. No rashes, no itchiness. No diarrhea, no abdominal pain. The patient has been seen by Gastroenterology. She has been set up for a colonoscopy at ____. PHYSICAL EXAMINATION: VITAL SIGNS: Temperature 97.3. EYES: No icterus. Pupils equal and reactive. HENT: No oral thrush seen. Moist oral mucosa. NECK: Supple, no JVD or thyromegaly. LUNGS: Good air entry. No rales, no rhonchi. CARDIOVASCULAR: S1, S2 regular. No murmur heard. ABDOMEN: Full, soft. Bowel sound is present. ____. CENTRAL NERVOUS SYSTEM: Awake, alert, oriented x 3. SKIN: No rashes, no itchiness. LYMPHATIC: No peripheral lymphadenopathy. BACK: No deformity, no pressure ulcer. MUSCULOSKELETAL: No joint swelling, erythema or tenderness. ASSESSMENT: An 84-year-old female admitted with melanotic stool. Current problems include: * Gastrointestinal bleed. * Anemia. * End-stage renal disease, on dialysis. * Abdominal wall hematoma. * Hypertension. * Coronary artery disease. * Hypothyroidism. PLAN: * Continue pain management. * Continue Protonix. * Continue antihypertensive. * Continue nutritional support. * Monitor electrolytes. * Continue Synthroid. * Monitor hemoglobin and hematocrit. TID: [id number] RECEIPT: [id number]
[2024-11-22] VITALS (24 sets, daily range): BP systolic 70–155; BP diastolic 30–55; PULSE 62–86; RESP 15–16; TEMP 97.3–97.6; O2SAT 99
[2024-11-22] MEDS: ondanSETRON 4MG INJ IVP PRN (03:30)
[2024-11-22 05:24] LABS: HEMATOCRIT 21.8 % (36-48); MEAN CORPUSCULAR HEMOGLOBIN 32.4 pg (27.0-33.0); MEAN CORPUSCULAR HGB CONC 32.6 g/dL (32.0-36.0); MEAN CORPUSCULAR VOLUME 99.5 fL (79-99); RED BLOOD CELL COUNT(AUTO) 2.19 MIL/uL (4.00-5.50); RED CELL DISTRIBUTION WIDTH 22.8 % (11.0-15.5); WHITE BLOOD COUNT (AUTO) 5.7 K/uL (4.8-10.8)
[2024-11-22 05:32] LABS: CREATININE 4.6 mg/dL (0.5-1.0); MAGNESIUM 1.6 mg/dL (1.80-2.40)
--- NOTE | 2024-11-22 09:28 | PN ---
NEPHROLOGY FOLLOWUP NOTE INTERVAL HISTORY: The patient was evaluated this morning, remains in the Emergency Room. She is scheduled for colonoscopy this morning. The patient denies any fevers, chills, chest pain, palpitations, focal weakness. Otherwise, stable overnight. Dialyzed yesterday, 1 liter removed. PHYSICAL EXAMINATION: CURRENT VITAL SIGNS: Temperature is 98.2, pulse 75, blood pressure 151/44, respiratory rate is 18, satting 98% on room air. GENERAL: The patient is resting comfortably. She is alert, she is oriented, no apparent distress. CARDIAC: Regular rhythm and rate. CHEST: Clear. ABDOMEN: Soft. EXTREMITIES: No edema. LABORATORY DATA: White count 5.7, hemoglobin 7.1, hematocrit 21.8, platelet count is 158. Sodium is 138, potassium 4.0, chloride 100, bicarb is 34, BUN is 22, creatinine is 4.6, calcium is 8.0, magnesium is 1.6. ASSESSMENT: * End-stage renal disease, on chronic hemodialysis. * Hypertension. * Anemia. * Hematochezia. * Status post recent colostomy takedown, 11/02/2024. * History of coronary artery disease, status post coronary artery bypass graft. * Prediabetes. * Hypertensive heart disease. * Abnormal troponins. PLAN: * End-stage renal disease. The patient will continue routine dialysis every Thursday, Thursday and Thursday during hospitalization. Tolerating treatments, renal diet, fluid restriction. * Hypertension. Hold antihypertensive in dialysis days. Blood pressure is trending up, we will need to resume antihypertensives. * Anemia. Continue with Retacrit. * Hematochezia. Scheduled for colonoscopy today. * Abnormal troponins. Cardiology consult. TID: [id number] RECEIPT: [id number]
--- NOTE | 2024-11-22 11:09 | NUR ---
CALLED GI TEAM IN REGARDS TO PATIENT NOT FINISHING UP GOLYTLY , PATIENT STILL PRESENTS LIGHT GREEN LIQUID STOOL, GI NURSE STATES THEY WILL SPEAK TO DR Griffith REGARDS TO PROCEED WITH PROCEDURE, PATIENT RESTING IN BED, CALL LIGHT IN REACH
[2024-11-22] MEDS ORDERED: proPOFol 10 MG/ML 20ML VIAL IV ONE (13:01)
--- NOTE | 2024-11-22 18:53 | PN ---
COLORECTAL PROGRESS NOTE Date of Visit: Nov 22, 2024 Time of Visit: 18:53 Events / Notes: [ ] Review of Systems: CONSTITUTIONAL: No malaise or change in sensation of wellbeing. ENMT: No rhinorrhea, otorrhea, sinus pain, ear ache. CARDIOVASCULAR: No angina, palpitations, orthopnea or paroxysmal dyspnea. RESPIRATORY: No SOB. GASTROINTESTINAL: No abdominal pain, nausea, vomiting, diarrhea, hematemesis, melena or change in the patient's habitual bowel movements consistency/number. GENITOURINARY: No dysuria, hematuria or change in bladder continence. MUSCULOSKELETAL: No new muscle pain or decrease in muscular strength. No new joint swelling, redness or tenderness. SKIN: No new rash. Physical Exam: GEN: Awake, alert, oriented in person, time and place, and in no acute distress. HEENT: No sinus tenderness. Tympanic membranes were not examined. No rhinorrhea. Oral pharyngeal mucosa is pink, moist and within normal limits. Neck is supple with no cervical lymphadenopathy, thyromegaly or JVD. CHEST: Inspection, palpation and percussion of the chest were unremarkable. Lung auscultation revealed normal breath sounds bilaterally. CARDIAC: PMI is within normal limits. Heart sounds are regular. Normal S1, S2. No gallop or murmur. ABD: Soft, non-tender and not distended. No peritoneal signs on palpation. No organomegaly. Normal bowel sounds. EXT: No cyanosis or clubbing. No edema. SKIN: Intact. No rashes. JOINTS: No evidence of synovitis or acute arthritis. NEURO: Alert and oriented to name, place and person. Cranial nerve examination is unremarkable. No focal motor deficits. Normal speech. Gait is normal. Strength is normal. Vital Signs (last 8hr) Date Time Temp Pulse Resp B/P (MAP) Pulse Ox O2 Delivery O2 Flow Rate FiO2 11/22/24 16:25 97.3 82 16 123/47 97 Room Air 11/22/24 16:15 97.3 86 16 129/45 97 Room Air 11/22/24 16:00 97.3 82 16 137/46 97 Room Air 11/22/24 15:50 97.3 84 16 122/44 97 Room Air 11/22/24 15:35 97.3 74 16 126/48 95 Room Air 11/22/24 15:20 97.3 76 16 136/50 98 Room Air 21 11/22/24 15:05 97.3 73 16 150/47 96 Room Air 11/22/24 14:50 97.3 74 16 136/48 96 Room Air 11/22/24 14:35 97.3 70 16 145/44 96 Room Air 11/22/24 14:20 97.3 70 16 155/46 97 Room Air 21 11/22/24 14:15 97.3 69 15 154/49 97 Room Air 11/22/24 14:10 97.3 71 15 143/53 97 Room Air 11/22/24 14:05 97.3 68 15 138/52 97 Room Air 11/22/24 14:00 97.3 70 15 138/52 97 Room Air 11/22/24 13:55 97.3 74 15 129/55 97 Room Air 11/22/24 13:50 97.3 74 15 116/51 97 Nasal Cannula 1.0 11/22/24 13:45 97.3 66 15 109/50 97 Nasal Cannula 2.0 24 11/22/24 13:40 97.3 67 15 103/49 97 Nasal Cannula 3.0 28 11/22/24 13:35 97.3 68 15 92/42 97 Nasal Cannula 3.0 28 11/22/24 13:30 97.3 65 15 86/42 97 Nasal Cannula 3.0 28 11/22/24 13:25 97.3 62 15 71/30 96 Nasal Cannula 3.0 28 11/22/24 13:20 97.3 65 15 70/33 96 Nasal Cannula 3.0 11/22/24 13:00 Mask 11/22/24 13:00 Mask 10.0 11/22/24 13:00 80 15 154/47 97 Room Air Laboratory: [ ] Laboratory: Test 11/22/24 05:20 11/21/24 22:02 11/21/24 11:31 11/21/24 00:42 Range/Units White Blood Count 5.7 4.8-10.8 K/uL Red Blood Count 2.19 L 4.00-5.50 MIL/uL Hemoglobin 7.1 L 12.0-16.0 g/dL Hematocrit 21.8 L 36-48 % Mean Corpuscular Volume 99.5 H 79-99 fL Mean Corpuscular Hemoglobin 32.4 27.0-33.0 pg Mean Corpuscular Hemoglobin Concent 32.6 32.0-36.0 g/dL Red Cell Distribution Width 22.8 H 11.0-15.5 % Platelet Count 158 130-400 K/uL Mean Platelet Volume 9.7 7.5-10.5 fL Nucleated Red Blood Cells 0.0 0.0-0.19 % Sodium Level 138 136-145 mmol/L Potassium Level 4.0 3.5-5.1 mmol/L Chloride Level 100 L 101-111 mmol/L Carbon Dioxide Level 34 H 21-32 mmol/L Blood Urea Nitrogen 22 H 7-18 mg/dL Creatinine 4.6 H 0.5-1.0 mg/dL Glomerular Filtration Rate Calc 9 >90 mL/min Random Glucose 82 70-105 mg/dL Total Calcium 8.0 L 8.5-10.1 mg/dL Magnesium Level 1.60 L 1.80-2.40 mg/dL Whole Blood Glucose 72 70-110 MG/DL Troponin I High Sensitivity 147 *H 4-50 ng/L Hepatitis B Surface Antigen. Non-Reactive Nonreactive Hepatitis B Surface Antibody. Negative L Reactive Hepatitis B Core Total Antibody. Non-Reactive Nonreactive Hepatitis C Antibody Non-Reactive Nonreactive Immature Granulocyte % (Auto) 0.5 0-1 % Neutrophils (%) (Auto) 65.1 40.0-77.0 % Lymphocytes (%) (Auto) 16.0 L 21.0-51.0 % Monocytes (%) (Auto) 11.5 3.0-13.0 % Eosinophils (%) (Auto) 6.2 0.0-8.0 % Basophils (%) (Auto) 0.7 0.0-5.0 % Neutrophils # (Auto) 5.0 1.8-7.7 K/uL Lymphocytes # (Auto) 1.2 1.0-4.8 K/uL Monocytes # (Auto) 0.9 0.1-1.0 K/uL Eosinophils # (Auto) 0.47 0.00-0.70 K/uL Basophils # (Auto) 0.05 0.00-0.20 K/uL Absolute Immature Granulocyte (auto 0.04 0-1 K/uL Test 11/20/24 20:52 Range/Units Urine Color LIGHT-YELLOW YELLOW Urine Appearance CLEAR CLEAR Urine pH 6.5 5.0-8.0 Urine Specific [place] 1.008 1.001-1.031 Urine Protein 30 H NEGATIVE mg/dL Urine Glucose (UA) NEGATIVE NEGATIVE mg/dL Urine Ketones NEGATIVE NEGATIVE mg/dL Urine Occult Blood LARGE H NEGATIVE Urine Nitrate NEGATIVE NEGATIVE Urine Bilirubin NEGATIVE NEGATIVE mg/dL Urine Urobilinogen 0.2 0.2-1.0 mg/dL Urine Leukocyte Esterase 25 H NEGATIVE Francisco Javier/uL Urine RBC 2-5 H 0-1 /HPF Urine WBC 6-10 H 0-1 /HPF Urine Squamous Epithelial Cells RARE 0-2 /HPF Urine Non-Squamous Epithelial Cells <1 0-2 /HPF Urine Bacteria RARE None Seen /HPF Urine Yeast RARE None Seen /HPF Current Medications Medications (Trade) Dose Ordered Sig/Seble Route PRN Reason Start Time Stop Time Status Last Admin Dose Admin Acetaminophen (TYLenol 325MG TAB) 650 mg Q6H PRN PO MILD PAIN (1-3) 11/20/24 16:30 12/20/24 16:29 Epoetin Chapo-epbx (Retacrit) 10,000 unit QMOWEFR SQ 11/23/24 09:00 12/23/24 08:59 Heparin Sodium (Porcine) (HEParin 5,000 UNIT VIAL) 10,000 unit AD IRRIG 11/21/24 11:00 12/21/24 10:59 11/21/24 12:51 10,000 UNIT Insulin Human Lispro (HumaLOG LISpro 100 UNIT/ML 3ML) INSULIN SLIDING SCAL... ACHS SQ 11/20/24 16:30 12/20/24 16:29 Ondansetron HCl (zoFRAN 4MG TABLET) 4 mg Q6H PRN PO NAUSEA/VOMITING 11/20/24 16:30 11/22/24 03:25 DC Ondansetron HCl (zoFRAN 4MG INJ) 4 mg Q6H PRN IVP NAUSEA/VOMITING 11/22/24 03:30 12/22/24 03:29 11/22/24 03:30 4 MG Pantoprazole Sodium (PROTonix 40MG INJ) 40 mg DAILY IVP 11/21/24 09:00 12/21/24 08:59 11/22/24 09:06 40 MG Sodium Chloride 1,000 ml @ 0 mls/hr ONCE IV 11/21/24 09:00 4/9/25 08:59 11/21/24 10:21 100 MLS/HR Diagnostics / Radiology: [COPY/PASTE HERE IF NO REPORTS PLEASE DELETE SECTION] Assessment: Hematochezia Colostomy closure Plan: Continue GI prophylaxis Avoid NSAIDs Antireflux measures Monitor H&H and transfuse as needed Call with questions, concerns or change in clinical status Patient to follow-up at clinic post discharge Thank you for this consult GEETHA ROSA SUPPORT SERVICES COORDINATOR Nov 22, 2024 18:53
--- NOTE | 2024-11-22 19:45 | PN ---
FOLLOWUP NOTE DATE OF SERVICE: 11/22/2024 SUBJECTIVE: The patient is seen. No fever, no chills. The patient is cleared to undergo colonoscopy today. No cough, no shortness of breath. No chest pain, no palpitation or orthopnea. The patient is tolerating dialysis. Denied depression. No suicidal ideation. PHYSICAL EXAMINATION: VITAL SIGNS: Temperature today 98.3. EYES: No icterus. Pupils are equal and reactive. HENT: No oral thrush seen. Moist oral mucosa. NECK: Supple, no JVD or thyromegaly. LUNGS: Good air entry. No rales, no rhonchi. CARDIOVASCULAR: S1, S2 regular. No murmur heard. ABDOMEN: Full, soft, nontender. Bowel sounds present. CENTRAL NERVOUS SYSTEM: Awake, alert, oriented x 3. No focal deficits. SKIN: No rashes, no itchiness. LYMPHATIC: No peripheral lymphadenopathy. BACK: No deformity, no pressure ulcer. MUSCULOSKELETAL: No joint swelling, erythema or tenderness. ASSESSMENT: An 84-year-old female with multiple problems which include: * Gastrointestinal bleed. * Anemia, status post transfusion. * End-stage renal disease, on dialysis. * Hypertension. * Diabetes mellitus. * Debility. PLAN: * Continue nutritional support. * Continue pain management. * Monitor electrolytes. * Continue GI prophylaxis. * Continue dialysis. * Continue nutritional support. * The patient will be followed up closely. TID: [id number] RECEIPT: [id number]
[2024-11-23] VITALS (21 sets, daily range): BP systolic 103–174; BP diastolic 35–64; PULSE 63–86; RESP 14–18; TEMP 97.6–98.3; O2SAT 93–95
--- NOTE | 2024-11-23 07:12 | PN ---
Cardiology follow-up Date of service: November 22, 2024 Interval HISTORY OF PRESENT ILLNESS: The patient is an 84-year-old female with known coronary artery disease remote CABG status post Stenting of vein graft to the right coronary artery December 02, 2023 on dual antiplatelet therapy. She also has a history of Carotid stenosis peripheral vascular disease and chronic heart failure with preserved ejection fraction. Patient was admitted because of blood loss anemia status post transfusion related to hematochezia Which occurred after colostomy reversal. Patient underwent colonoscopy showing benign findings no active bleeding noted. My overall recommendation Is to withhold aspirin and clopidogrel for 2 weeks, however if there is recurrent bleeding despite discontinuation of Antiplatelet therapy, bleeding scan can be considered then. PHYSICAL EXAMINATION: GENERAL: The patient is resting comfortably. Generally, weak appearing. She is alert, she is oriented. HEENT: Anicteric sclerae. NECK: Flat JVD. Supple. HEART: Regular rhythm and rate normal S1 wide split S2 2/6 tricuspid regurgitation murmur. CHEST: Clear. No adventitious sounds ABDOMEN: Hyperactive bowel sounds no hepatosplenomegaly EXTREMITIES: No edema. Neuro exam: Nonfocal ASSESSMENT: 1. Admission symptomatic blood loss anemia status post colonoscopy November 22 s howing benign findings 2. Stable angina with chronic coronary artery disease prior remote CABG status post stenting of the vein graft to the RCA November 19, 2023 3. Chronic compensated heart failure with preserved ejection fraction 4. Peripheral vascular disease 5. Carotid stenosis prior left endarterectomy PLAN: Regarding recent hematochezia while taking antiplatelet therapy, as mentioned above discontinue aspirin and clopidogrel for 2 weeks. Monitor for any Rebleeding and consider bleeding scan. Follow-up with Dr. oSto in 2 weeks. Risk of thrombotic event while off dual antiplatelet therapy explained to the patient who verbalized understanding. Regarding coronary artery disease heart failure and hypertension, resume metoprolol followed by lisinopril and then isosorbide as blood pressure tolerates Vitals/Labs Vital Signs Date Time Temp Pulse Resp B/P (MAP) Pulse Ox O2 Delivery O2 Flow Rate FiO2 11/23/24 04:00 97.9 65 16 126/47 96 Room Air 21 11/22/24 20:00 0 MOLLY SOTO MD Nov 23, 2024 07:12
--- NOTE | 2024-11-23 08:08 | PN ---
GASTROENTEROLOGY PROGRESS NOTE Date of Visit: Nov 23, 2024 Time of Visit: 08:08 Events / Notes: [ ] Review of Systems: CONSTITUTIONAL: No malaise or change in sensation of wellbeing. ENMT: No rhinorrhea, otorrhea, sinus pain, ear ache. CARDIOVASCULAR: No angina, palpitations, orthopnea or paroxysmal dyspnea. RESPIRATORY: No SOB. GASTROINTESTINAL: No abdominal pain, nausea, vomiting, diarrhea, hematemesis, melena or change in the patient's habitual bowel movements consistency/number. GENITOURINARY: No dysuria, hematuria or change in bladder continence. MUSCULOSKELETAL: No new muscle pain or decrease in muscular strength. No new joint swelling, redness or tenderness. SKIN: No new rash. Physical Exam: GEN: Awake, alert, oriented in person, time and place, and in no acute distress. HEENT: No sinus tenderness. Tympanic membranes were not examined. No rhinorrhea. Oral pharyngeal mucosa is pink, moist and within normal limits. Neck is supple with no cervical lymphadenopathy, thyromegaly or JVD. CHEST: Inspection, palpation and percussion of the chest were unremarkable. Lung auscultation revealed normal breath sounds bilaterally. CARDIAC: PMI is within normal limits. Heart sounds are regular. Normal S1, S2. No gallop or murmur. ABD: Soft, non-tender and not distended. No peritoneal signs on palpation. No organomegaly. Normal bowel sounds. EXT: No cyanosis or clubbing. No edema. SKIN: Intact. No rashes. JOINTS: No evidence of synovitis or acute arthritis. NEURO: Alert and oriented to name, place and person. Cranial nerve examination is unremarkable. No focal motor deficits. Normal speech. Gait is normal. Strength is normal. Vital Signs (last 8hr) Date Time Temp Pulse Resp B/P (MAP) Pulse Ox O2 Delivery O2 Flow Rate FiO2 11/23/24 04:00 97.9 65 16 126/47 96 Room Air 21 Laboratory: [ ] Laboratory: Test 11/23/24 05:17 11/22/24 05:20 11/21/24 11:31 Range/Units Whole Blood Glucose 56 L 70-110 MG/DL White Blood Count 5.7 4.8-10.8 K/uL Red Blood Count 2.19 L 4.00-5.50 MIL/uL Hemoglobin 7.1 L 12.0-16.0 g/dL Hematocrit 21.8 L 36-48 % Mean Corpuscular Volume 99.5 H 79-99 fL Mean Corpuscular Hemoglobin 32.4 27.0-33.0 pg Mean Corpuscular Hemoglobin Concent 32.6 32.0-36.0 g/dL Red Cell Distribution Width 22.8 H 11.0-15.5 % Platelet Count 158 130-400 K/uL Mean Platelet Volume 9.7 7.5-10.5 fL Nucleated Red Blood Cells 0.0 0.0-0.19 % Sodium Level 138 136-145 mmol/L Potassium Level 4.0 3.5-5.1 mmol/L Chloride Level 100 L 101-111 mmol/L Carbon Dioxide Level 34 H 21-32 mmol/L Blood Urea Nitrogen 22 H 7-18 mg/dL Creatinine 4.6 H 0.5-1.0 mg/dL Glomerular Filtration Rate Calc 9 >90 mL/min Random Glucose 82 70-105 mg/dL Total Calcium 8.0 L 8.5-10.1 mg/dL Magnesium Level 1.60 L 1.80-2.40 mg/dL Troponin I High Sensitivity 147 *H 4-50 ng/L Hepatitis B Surface Antigen. Non-Reactive Nonreactive Hepatitis B Surface Antibody. Negative L Reactive Hepatitis B Core Total Antibody. Non-Reactive Nonreactive Hepatitis C Antibody Non-Reactive Nonreactive Current Medications Medications (Trade) Dose Ordered Sig/Seble Route PRN Reason Start Time Stop Time Status Last Admin Dose Admin Acetaminophen (TYLenol 325MG TAB) 650 mg Q6H PRN PO MILD PAIN (1-3) 11/20/24 16:30 12/20/24 16:29 Epoetin Chapo-epbx (Retacrit) 10,000 unit QMOWEFR SQ 11/23/24 09:00 12/23/24 08:59 Heparin Sodium (Porcine) (HEParin 5,000 UNIT VIAL) 10,000 unit AD IRRIG 11/21/24 11:00 12/21/24 10:59 11/21/24 12:51 10,000 UNIT Insulin Human Lispro (HumaLOG LISpro 100 UNIT/ML 3ML) INSULIN SLIDING SCAL... ACHS SQ 11/20/24 16:30 12/20/24 16:29 Ondansetron HCl (zoFRAN 4MG TABLET) 4 mg Q6H PRN PO NAUSEA/VOMITING 3/9/25 16:30 11/22/24 03:25 DC Ondansetron HCl (zoFRAN 4MG INJ) 4 mg Q6H PRN IVP NAUSEA/VOMITING 11/22/24 03:30 12/22/24 03:29 11/22/24 03:30 4 MG Pantoprazole Sodium (PROTonix 40MG INJ) 40 mg DAILY IVP 11/21/24 09:00 12/21/24 08:59 11/22/24 09:06 40 MG Sodium Chloride 1,000 ml @ 0 mls/hr ONCE IV 11/21/24 09:00 12/21/24 08:59 11/21/24 10:21 100 MLS/HR Diagnostics / Radiology: [COPY/PASTE HERE IF NO REPORTS PLEASE DELETE SECTION] Assessment: [ ] Plan: [ ] GEETHA ROSA [facility] Nov 23, 2024 08:08
[2024-11-23] MEDS: EPOETIN ALFA-EPBX (NON-ESRD) 10,000 UNIT/ML VIAL SQ SCH (09:00)
--- NOTE | 2024-11-23 09:00 | NUR ---
MEDICATION UNAVAILABLE IN [facility] Pharmacy notified. Unable to pull. Remained unable to access through administration times
--- NOTE | 2024-11-23 10:15 | PN ---
NEPHROLOGY FOLLOWUP NOTE INTERVAL HISTORY: The patient was evaluated in her room this morning, did complete colonoscopy yesterday with benign findings. Denies any fevers, chills, chest pain or focal weakness. PHYSICAL EXAMINATION: CURRENT VITAL SIGNS: Temperature is 98.1, pulse 69, blood pressure 142/48, respiratory rate is 18, satting 93% on room air. GENERAL: The patient is resting comfortably. She is alert, she is oriented, no apparent distress. CARDIAC: Regular rhythm and rate. CHEST: Clear. ABDOMEN: Soft, nontender. EXTREMITIES: No edema. LABORATORY DATA: Pending for this morning. ASSESSMENT: * End-stage renal disease, on chronic hemodialysis. * Hypertension. * Anemia. * Hematochezia. * Status post recent colostomy takedown, 11/02/2024. * History of coronary artery disease, status post bypass surgery. * Prediabetes. PLAN: * End-stage renal disease. The patient will dialyze today per routine schedule, 2K bath, 2.5 calcium bath, 300 blood flow rate, 600 dialysate flow rate, UF 1 liter as tolerated. Continue with renal diet and fluid restriction. * Hypertension, managed by Cardiology. Stable at this time. * Anemia. Continue with Epogen. Trend labs. Follow up lab studies, which are pending for this morning. * Hematochezia, status post colonoscopy. The patient is off antiplatelet agents. Follow recommendations from Gastroenterology. TID: [id number] RECEIPT: [id number]
[2024-11-23 12:45] LABS: BASOPHILS # (AUTO) 0.05 K/uL (0.00-0.20); BASOPHILS % (AUTO) 0.9 % (0.0-5.0); EOSINOPHILS # (AUTO) 0.53 K/uL (0.00-0.70); EOSINOPHILS % (AUTO) 9.8 % (0.0-8.0); IMMATURE GRANULOCYTE ABSOLUTE 0.02 K/uL (0-1); LYMPHOCYTES # (AUTO) 0.6 K/uL (1.0-4.8); LYMPHOCYTES % (AUTO) 11.5 % (21.0-51.0); MEAN CORPUSCULAR HEMOGLOBIN 32.5 pg (27.0-33.0); MEAN CORPUSCULAR VOLUME 98.3 fL (79-99); MONOCYTES # (AUTO) 0.8 K/uL (0.1-1.0); MONOCYTES % (AUTO) 15.2 % (3.0-13.0); NEUTROPHILS # (AUTO) 3.4 K/uL (1.8-7.7); NEUTROPHILS % (AUTO) 62.2 % (40.0-77.0); PLATELET COUNT (AUTO) 148 K/uL (130-400); RED BLOOD CELL COUNT(AUTO) 2.34 MIL/uL (4.00-5.50); RED CELL DISTRIBUTION WIDTH 22.5 % (11.0-15.5); WHITE BLOOD COUNT (AUTO) 5.4 K/uL (4.8-10.8)
[2024-11-23 12:46] LABS: MAGNESIUM 1.6 mg/dL (1.80-2.40); POTASSIUM 3.5 mmol/L (3.5-5.1)
[2024-11-23] MEDS ORDERED: COMPOUND IV REFRIGERATED 1 EACH IVSOLN MISC PRN (13:00)
[2024-11-23] MEDS: 0.9%NACL 1000ML 1,000 ML IV SCH (13:20)
[2024-11-23] MEDS: EPOETIN ALFA-EPBX (NON-ESRD) 10,000 UNIT/ML VIAL SQ ONE (15:38)
--- NOTE | 2024-11-23 17:07 | PN ---
INFECTIOUS DISEASE PROGRESS NOTE Date of Service: Nov 23, 2024 SUBJECTIVE: This is a 84-year-old female patient with a recent colostomy reversal who [facility] for chief complaint of rectal bleeding. On admission patient had a hemoglobin of 6.6 and was transfused 1 unit of PRBC. Today patient was seen and examined at bedside in room 324. Patient is status post colonoscopy with findings of nonbleeding hemorrhoids and diverticulosis. Hemoglobin today is stable at 7.6. Patient being dialyzed today. We will plan to discharge tomorrow if stable. PHYSICAL EXAM EYES: Anicteric. Pupils equal and reactive. HENT: No oral thrush seen, moist Oral mucosa. NECK: Supple, no JVD or thyromegaly. LUNGS: Good air entry. No rales, no rhonchi. CARDIOVASCULAR: S1, S2 regular. No murmur heard. ABDOMEN: Soft, bowel sounds present, no organomegaly. Tender, Abdominal wall hematoma. CENTRAL NERVOUS SYSTEM: Awake, alert, oriented x 3. SKIN: No rashes, no swelling. LYMPHATICS: No peripheral lymphadenopathy. MUSCULOSKELETAL: No joint swelling, erythema or tenderness. EXTREMITIES: No cyanosis or clubbing BACK: No deformity, no pressure ulcer. GENITOURINARY: No dysuria or hematuria. Vital Sign (Last 12 Hours) 11/23/24 11/23/24 11/23/24 11/23/24 08:00 08:00 09:00 09:25 Temp 98.1 98.1 98.1 Pulse 69 81 86 Resp 18 14 14 B/P (MAP) 142/48 158/57 174/64 Pulse Ox 93 93 O2 Delivery Room Air* Room Air Room Air Room Air O2 Flow Rate 0 FiO2 21 11/23/24 11/23/24 11/23/24 11/23/24 09:30 09:45 10:00 10:15 Pulse 80 70 65 63 Resp 14 14 14 14 B/P (MAP) 155/58 147/52 160/47 152/41 O2 Delivery Room Air Room Air Room Air Room Air 11/23/24 11/23/24 11/23/24 11/23/24 10:30 10:45 11:00 11:15 Pulse 64 68 71 74 Resp 14 14 14 14 B/P (MAP) 135/41 125/41 127/42 130/42 O2 Delivery Room Air Room Air Room Air Room Air 11/23/24 11/23/24 11/23/24 11/23/24 11:30 11:30 11:45 12:00 Temp 98.1 Pulse 68 74 65 68 Resp 14 18 14 14 B/P (MAP) 121/38 130/42 134/40 119/41 Pulse Ox 97 O2 Delivery Room Air Room Air Room Air Room Air 11/23/24 11/23/24 11/23/24 12:15 12:40 16:00 Temp 97.9 97.9 Pulse 75 69 74 Resp 14 14 18 B/P (MAP) 103/35 111/43 121/45 Pulse Ox 94 O2 Delivery Room Air Room Air Room Air LABS: Laboratory: Test 11/23/24 15:44 11/23/24 12:29 Range/Units Whole Blood Glucose 83 70-110 MG/DL White Blood Count 5.4 4.8-10.8 K/uL Red Blood Count 2.34 L 4.00-5.50 MIL/uL Hemoglobin 7.6 L 12.0-16.0 g/dL Hematocrit 23.0 L 36-48 % Mean Corpuscular Volume 98.3 79-99 fL Mean Corpuscular Hemoglobin 32.5 27.0-33.0 pg Mean Corpuscular Hemoglobin Concent 33.0 32.0-36.0 g/dL Red Cell Distribution Width 22.5 H 11.0-15.5 % Platelet Count 148 130-400 K/uL Mean Platelet Volume 9.8 7.5-10.5 fL Immature Granulocyte % (Auto) 0.4 0-1 % Neutrophils (%) (Auto) 62.2 40.0-77.0 % Lymphocytes (%) (Auto) 11.5 L 21.0-51.0 % Monocytes (%) (Auto) 15.2 H 3.0-13.0 % Eosinophils (%) (Auto) 9.8 H 0.0-8.0 % Basophils (%) (Auto) 0.9 0.0-5.0 % Neutrophils # (Auto) 3.4 1.8-7.7 K/uL Lymphocytes # (Auto) 0.6 L 1.0-4.8 K/uL Monocytes # (Auto) 0.8 0.1-1.0 K/uL Eosinophils # (Auto) 0.53 0.00-0.70 K/uL Basophils # (Auto) 0.05 0.00-0.20 K/uL Absolute Immature Granulocyte (auto 0.02 0-1 K/uL Nucleated Red Blood Cells 0.0 0.0-0.19 % White Cell Morphology Comment See comments Sodium Level 135 L 136-145 mmol/L Potassium Level 3.5 3.5-5.1 mmol/L Chloride Level 99 L 101-111 mmol/L Carbon Dioxide Level 34 H 21-32 mmol/L Blood Urea Nitrogen 7 7-18 mg/dL Creatinine 2.0 H 0.5-1.0 mg/dL Glomerular Filtration Rate Calc 24 >90 mL/min Random Glucose 73 70-105 mg/dL Total Calcium 8.1 L 8.5-10.1 mg/dL Magnesium Level 1.60 L 1.80-2.40 mg/dL ASSESSMENT: Anemia requiring blood transfusion. Abdominal wall hematoma. Gastrointestinal bleed, s/p colonoscopy with findings of nonbleeding hemorrhoids and diverticulosis.. End-stage renal disease, on dialysis. Diabetes mellitus. PLAN: Will monitor hemoglobin. Continue Protonix. Continue dialysis as recommended by dowel sticker operator. Continue pain management. Glucometer checks a.c./hs and cover with insulin per sliding scale protocol. We will follow up on the culture results. We will monitor electrolytes. This case was reviewed and discussed with my supervising physician and the above assessment and plan was formulated and agreed upon. ATTESTATION BY PHYSICIAN I have seen and examined the patient. I reviewed the documentation, medical decision making, and treatment plan as noted by the mid-level provider above. I agree with the findings and plan of care. EVGENY SCHULTZ MD, MIRTA L [employer]ENTAL CL[employer] Nov 23, 2024 17:07
[2024-11-24] VITALS (7 sets, daily range): BP systolic 98–152; BP diastolic 39–53; PULSE 67–84; RESP 18; TEMP 98–99.2; O2SAT 95
[2024-11-24 05:55] LABS: HEMATOCRIT 22.3 % (36-48); MEAN CORPUSCULAR HEMOGLOBIN 32.6 pg (27.0-33.0); MEAN CORPUSCULAR HGB CONC 32.3 g/dL (32.0-36.0); MEAN CORPUSCULAR VOLUME 100.9 fL (79-99); RED BLOOD CELL COUNT(AUTO) 2.21 MIL/uL (4.00-5.50); RED CELL DISTRIBUTION WIDTH 22.5 % (11.0-15.5); WHITE BLOOD COUNT (AUTO) 4.9 K/uL (4.8-10.8)
[2024-11-24 06:03] LABS: CREATININE 5.3 mg/dL (0.5-1.0); MAGNESIUM 1.8 mg/dL (1.80-2.40); POTASSIUM 3.7 mmol/L (3.5-5.1)
--- NOTE | 2024-11-24 07:48 | PN ---
GASTROENTEROLOGY PROGRESS NOTE Date of Visit: Nov 24, 2024 Time of Visit: 07:48 Events / Notes: [ ] Review of Systems: CONSTITUTIONAL: No malaise or change in sensation of wellbeing. ENMT: No rhinorrhea, otorrhea, sinus pain, ear ache. CARDIOVASCULAR: No angina, palpitations, orthopnea or paroxysmal dyspnea. RESPIRATORY: No SOB. GASTROINTESTINAL: No abdominal pain, nausea, vomiting, diarrhea, hematemesis, melena or change in the patient's habitual bowel movements consistency/number. GENITOURINARY: No dysuria, hematuria or change in bladder continence. MUSCULOSKELETAL: No new muscle pain or decrease in muscular strength. No new joint swelling, redness or tenderness. SKIN: No new rash. Physical Exam: GEN: Awake, alert, oriented in person, time and place, and in no acute distress. HEENT: No sinus tenderness. Tympanic membranes were not examined. No rhinorrhea. Oral pharyngeal mucosa is pink, moist and within normal limits. Neck is supple with no cervical lymphadenopathy, thyromegaly or JVD. CHEST: Inspection, palpation and percussion of the chest were unremarkable. Lung auscultation revealed normal breath sounds bilaterally. CARDIAC: PMI is within normal limits. Heart sounds are regular. Normal S1, S2. No gallop or murmur. ABD: Soft, non-tender and not distended. No peritoneal signs on palpation. No organomegaly. Normal bowel sounds. EXT: No cyanosis or clubbing. No edema. SKIN: Intact. No rashes. JOINTS: No evidence of synovitis or acute arthritis. NEURO: Alert and oriented to name, place and person. Cranial nerve examination is unremarkable. No focal motor deficits. Normal speech. Gait is normal. Strength is normal. Vital Signs (last 8hr) Date Time Temp Pulse Resp B/P (MAP) Pulse Ox O2 Delivery O2 Flow Rate FiO2 11/24/24 04:23 98.6 75 18 129/45 96 Room Air 21 11/24/24 00:21 98.2 71 18 113/39 97 Room Air 21 Laboratory: [ ] Laboratory: Test 11/24/24 05:42 11/24/24 05:14 11/23/24 12:29 Range/Units White Blood Count 4.9 4.8-10.8 K/uL Red Blood Count 2.21 L 4.00-5.50 MIL/uL Hemoglobin 7.2 L 12.0-16.0 g/dL Hematocrit 22.3 L 36-48 % Mean Corpuscular Volume 100.9 H 79-99 fL Mean Corpuscular Hemoglobin 32.6 27.0-33.0 pg Mean Corpuscular Hemoglobin Concent 32.3 32.0-36.0 g/dL Red Cell Distribution Width 22.5 H 11.0-15.5 % Platelet Count 133 130-400 K/uL Mean Platelet Volume 9.8 7.5-10.5 fL Nucleated Red Blood Cells 0.0 0.0-0.19 % Sodium Level 137 136-145 mmol/L Potassium Level 3.7 3.5-5.1 mmol/L Chloride Level 102 101-111 mmol/L Carbon Dioxide Level 30 21-32 mmol/L Blood Urea Nitrogen 16 7-18 mg/dL Creatinine 5.3 H 0.5-1.0 mg/dL Glomerular Filtration Rate Calc 8 >90 mL/min Random Glucose 103 70-105 mg/dL Total Calcium 7.7 L 8.5-10.1 mg/dL Magnesium Level 1.80 1.80-2.40 mg/dL Whole Blood Glucose 97 70-110 MG/DL Immature Granulocyte % (Auto) 0.4 0-1 % Neutrophils (%) (Auto) 62.2 40.0-77.0 % Lymphocytes (%) (Auto) 11.5 L 21.0-51.0 % Monocytes (%) (Auto) 15.2 H 3.0-13.0 % Eosinophils (%) (Auto) 9.8 H 0.0-8.0 % Basophils (%) (Auto) 0.9 0.0-5.0 % Neutrophils # (Auto) 3.4 1.8-7.7 K/uL Lymphocytes # (Auto) 0.6 L 1.0-4.8 K/uL Monocytes # (Auto) 0.8 0.1-1.0 K/uL Eosinophils # (Auto) 0.53 0.00-0.70 K/uL Basophils # (Auto) 0.05 0.00-0.20 K/uL Absolute Immature Granulocyte (auto 0.02 0-1 K/uL White Cell Morphology Comment See comments Current Medications Medications (Trade) Dose Ordered Sig/Seble Route PRN Reason Start Time Stop Time Status Last Admin Dose Admin Acetaminophen (TYLenol 325MG TAB) 650 mg Q6H PRN PO MILD PAIN (1-3) 11/20/24 16:30 12/20/24 16:29 Epoetin Chapo-epbx (Retacrit) 10,000 unit QMOWEFR SQ 11/23/24 09:00 12/23/24 08:59 Heparin Sodium (Porcine) (HEParin 5,000 UNIT VIAL) 10,000 unit AD IRRIG 11/21/24 11:00 12/21/24 10:59 11/21/24 12:51 10,000 UNIT Insulin Human Lispro (HumaLOG LISpro 100 UNIT/ML 3ML) INSULIN SLIDING SCAL... ACHS SQ 11/20/24 16:30 12/20/24 16:29 Ondansetron HCl (zoFRAN 4MG TABLET) 4 mg Q6H PRN PO NAUSEA/VOMITING 11/20/24 16:30 11/22/24 03:25 DC Ondansetron HCl (zoFRAN 4MG INJ) 4 mg Q6H PRN IVP NAUSEA/VOMITING 11/22/24 03:30 12/22/24 03:29 11/22/24 03:30 4 MG Pantoprazole Sodium (PROTonix 40MG INJ) 40 mg DAILY IVP 11/21/24 09:00 12/21/24 08:59 11/23/24 09:08 40 MG Sodium Chloride 1,000 ml @ 0 mls/hr ONCE IV 11/21/24 09:00 11/23/24 10:03 DC 11/21/24 10:21 100 MLS/HR Sodium Chloride 1,000 ml @ 0 mls/hr ONCE IV 11/23/24 10:00 12/23/24 09:59 11/23/24 13:20 333 MLS/HR Diagnostics / Radiology: [COPY/PASTE HERE IF NO REPORTS PLEASE DELETE SECTION] Assessment: [ ] Plan: [ ] GEETHA ROSA [facility] Nov 24, 2024 07:48
[2024-11-24] MEDS ORDERED: LIDOCAINE/PRILOCAINE CREAM 5GM TUBE TP ONE (13:00)
--- NOTE | 2024-11-24 15:15 | NUR ---
UNIT OF BLOOD READY FOR MANAGER [employer]ACLE RETAIL FOR TRANSFUSION Blood verified with lab, picked up for transfusion.
--- NOTE | 2024-11-24 15:25 | NUR ---
TWO NURSE VERIFICATION AT BEDSIDE PRIOR TO INITIATION OF TRANSFUSION
--- NOTE | 2024-11-24 15:40 | NUR ---
TRANSFUSION INITIATED
--- NOTE | 2024-11-24 16:00 | NUR ---
IV SITE LEAKING Transfusion discontinued from right AC. Infusion restarted at IV to right wrist.
--- NOTE | 2024-11-24 16:07 | NUR ---
TRANSFUSION SITE LEAKING Infusion stopped. Discontinued transfusion to right wrist. New IV started to right upper extremity. Infusion restarted at new IV site.
--- NOTE | 2024-11-24 18:52 | NUR ---
BLOOD TRANSFUSION COMPLETE 1 unit PRBC transfused, no reaction noted.
[2024-11-25] VITALS (21 sets, daily range): BP systolic 124–160; BP diastolic 43–84; PULSE 66–78; RESP 14–20; TEMP 98–98.4; O2SAT 96–97
--- NOTE | 2024-11-25 00:29 | PN ---
INFECTIOUS DISEASE PROGRESS NOTE Date of Service: Nov 24, 2024 SUBJECTIVE: This is a 84-year-old female patient with a recent colostomy reversal who [facility] for chief complaint of rectal bleeding. On admission patient had a hemoglobin of 6.6 and was transfused 1 unit of PRBC. Patient is awake, alert and oriented x 3. Patient is up ambulating in the room. Observed that the abdominal wall hematoma has increased in size. The hemoglobin is 7.2 and we will transfused [address] Schultz communicated this finding to the GI surgical team. Patient was dialyzed yesterday and 1.4 L removed. We will continue to monitor patient. PHYSICAL EXAM EYES: Anicteric. Pupils equal and reactive. HENT: No oral thrush seen, moist Oral mucosa NECK: Supple, no JVD or thyromegaly. LUNGS: Good air entry. No rales, no rhonchi. CARDIOVASCULAR: S1, S2 regular. No murmur heard. ABDOMEN: Soft bowel sounds present, no organomegaly. Tender. Abdominal wall hematoma. CENTRAL NERVOUS SYSTEM: Awake, alert, oriented x 3. SKIN: No rashes, no swelling. LYMPHATICS: No peripheral lymphadenopathy MUSCULOSKELETAL: No joint swelling, erythema or tenderness. EXTREMITIES: No cyanosis or clubbing BACK: No deformity, no pressure ulcer. GENITOURINARY: No dysuria or hematuria Vital Sign (Last 12 Hours) 11/24/24 11/24/24 11/24/24 16:00 19:00 20:04 Temp 98.6 98.4 Pulse 75 72 Resp 18 18 B/P (MAP) 98/40 152/53 Pulse Ox 94 96 95 O2 Delivery Room Air Room Air Room Air* O2 Flow Rate 0 FiO2 21 LABS: Laboratory: Test 11/24/24 20:20 11/24/24 05:42 11/23/24 12:29 Range/Units Whole Blood Glucose 132 H 70-110 MG/DL White Blood Count 4.9 4.8-10.8 K/uL Red Blood Count 2.21 L 4.00-5.50 MIL/uL Hemoglobin 7.2 L 12.0-16.0 g/dL Hematocrit 22.3 L 36-48 % Mean Corpuscular Volume 100.9 H 79-99 fL Mean Corpuscular Hemoglobin 32.6 27.0-33.0 pg Mean Corpuscular Hemoglobin Concent 32.3 32.0-36.0 g/dL Red Cell Distribution Width 22.5 H 11.0-15.5 % Platelet Count 133 130-400 K/uL Mean Platelet Volume 9.8 7.5-10.5 fL Nucleated Red Blood Cells 0.0 0.0-0.19 % Sodium Level 137 136-145 mmol/L Potassium Level 3.7 3.5-5.1 mmol/L Chloride Level 102 101-111 mmol/L Carbon Dioxide Level 30 21-32 mmol/L Blood Urea Nitrogen 16 7-18 mg/dL Creatinine 5.3 H 0.5-1.0 mg/dL Glomerular Filtration Rate Calc 8 >90 mL/min Random Glucose 103 70-105 mg/dL Total Calcium 7.7 L 8.5-10.1 mg/dL Magnesium Level 1.80 1.80-2.40 mg/dL Immature Granulocyte % (Auto) 0.4 0-1 % Neutrophils (%) (Auto) 62.2 40.0-77.0 % Lymphocytes (%) (Auto) 11.5 L 21.0-51.0 % Monocytes (%) (Auto) 15.2 H 3.0-13.0 % Eosinophils (%) (Auto) 9.8 H 0.0-8.0 % Basophils (%) (Auto) 0.9 0.0-5.0 % Neutrophils # (Auto) 3.4 1.8-7.7 K/uL Lymphocytes # (Auto) 0.6 L 1.0-4.8 K/uL Monocytes # (Auto) 0.8 0.1-1.0 K/uL Eosinophils # (Auto) 0.53 0.00-0.70 K/uL Basophils # (Auto) 0.05 0.00-0.20 K/uL Absolute Immature Granulocyte (auto 0.02 0-1 K/uL White Cell Morphology Comment See comments ASSESSMENT: Anemia requiring blood transfusion. Abdominal wall hematoma. Gastrointestinal bleed, s/p colonoscopy with findings of nonbleeding hemorrhoids and diverticulosis.. End-stage renal disease, on dialysis. Diabetes mellitus. PLAN: Will transfused 1 unit of PRBC. Continue Protonix. GI Surgical team on the case and following. Continue dialysis as recommended by nutritional yeast supervisor. Continue pain management. Glucometer checks a.c./hs and cover with insulin per sliding scale protocol. We will monitor electrolytes. This case was reviewed and discussed with my supervising physician and the above assessment and plan was formulated and agreed upon. ATTESTATION BY PHYSICIAN I have seen and examined the patient. I reviewed the documentation, medical decision making, and treatment plan as noted by the mid-level provider above. I agree with the findings and plan of care. EVGENY SCHULTZ MD, MIRTA L FNP Nov 25, 2024 00:29
[2024-11-25 05:50] LABS: HEMATOCRIT 30.5 % (36-48); MEAN CORPUSCULAR HEMOGLOBIN 32.1 pg (27.0-33.0); MEAN CORPUSCULAR HGB CONC 33.4 g/dL (32.0-36.0); MEAN CORPUSCULAR VOLUME 95.9 fL (79-99); RED BLOOD CELL COUNT(AUTO) 3.18 MIL/uL (4.00-5.50); RED CELL DISTRIBUTION WIDTH 21.8 % (11.0-15.5); WHITE BLOOD COUNT (AUTO) 6.9 K/uL (4.8-10.8)
[2024-11-25 05:58] LABS: CREATININE 7.1 mg/dL (0.5-1.0); MAGNESIUM 1.6 mg/dL (1.80-2.40)
--- NOTE | 2024-11-25 09:23 | PN ---
COLORECTAL PROGRESS NOTE Date of Visit: Nov 25, 2024 Time of Visit: 09:23 Events / Notes: [ ] Review of Systems: CONSTITUTIONAL: No malaise or change in sensation of wellbeing. ENMT: No rhinorrhea, otorrhea, sinus pain, ear ache. CARDIOVASCULAR: No angina, palpitations, orthopnea or paroxysmal dyspnea. RESPIRATORY: No SOB. GASTROINTESTINAL: No abdominal pain, nausea, vomiting, diarrhea, hematemesis, melena or change in the patient's habitual bowel movements consistency/number. GENITOURINARY: No dysuria, hematuria or change in bladder continence. MUSCULOSKELETAL: No new muscle pain or decrease in muscular strength. No new joint swelling, redness or tenderness. SKIN: No new rash. Physical Exam: GEN: Awake, alert, oriented in person, time and place, and in no acute distress. HEENT: No sinus tenderness. Tympanic membranes were not examined. No rhinorrhea. Oral pharyngeal mucosa is pink, moist and within normal limits. Neck is supple with no cervical lymphadenopathy, thyromegaly or JVD. CHEST: Inspection, palpation and percussion of the chest were unremarkable. Lung auscultation revealed normal breath sounds bilaterally. CARDIAC: PMI is within normal limits. Heart sounds are regular. Normal S1, S2. No gallop or murmur. ABD: Soft, non-tender and not distended. No peritoneal signs on palpation. No organomegaly. Normal bowel sounds. EXT: No cyanosis or clubbing. No edema. SKIN: Intact. No rashes. JOINTS: No evidence of synovitis or acute arthritis. NEURO: Alert and oriented to name, place and person. Cranial nerve examination is unremarkable. No focal motor deficits. Normal speech. Gait is normal. Strength is normal. Vital Signs (last 8hr) Date Time Temp Pulse Resp B/P (MAP) Pulse Ox O2 Delivery O2 Flow Rate FiO2 11/25/24 08:00 98.2 68 16 145/50 97 Room Air 21 11/25/24 04:32 98.1 71 20 146/84 96 Room Air 11/25/24 03:27 96 Room Air* 0 21 Laboratory: [ ] Laboratory: Test 11/25/24 05:40 11/25/24 05:28 11/23/24 12:29 Range/Units White Blood Count 6.9 # 4.8-10.8 K/uL Red Blood Count 3.18 #L 4.00-5.50 MIL/uL Hemoglobin 10.2 #L 12.0-16.0 g/dL Hematocrit 30.5 #L 36-48 % Mean Corpuscular Volume 95.9 79-99 fL Mean Corpuscular Hemoglobin 32.1 27.0-33.0 pg Mean Corpuscular Hemoglobin Concent 33.4 32.0-36.0 g/dL Red Cell Distribution Width 21.8 H 11.0-15.5 % Platelet Count 136 130-400 K/uL Mean Platelet Volume 10.1 7.5-10.5 fL Nucleated Red Blood Cells 0.0 0.0-0.19 % Sodium Level 139 136-145 mmol/L Potassium Level 4.0 3.5-5.1 mmol/L Chloride Level 103 101-111 mmol/L Carbon Dioxide Level 28 21-32 mmol/L Blood Urea Nitrogen 28 H 7-18 mg/dL Creatinine 7.1 H 0.5-1.0 mg/dL Glomerular Filtration Rate Calc 5 >90 mL/min Random Glucose 100 70-105 mg/dL Total Calcium 7.6 L 8.5-10.1 mg/dL Magnesium Level 1.60 L 1.80-2.40 mg/dL Whole Blood Glucose 104 70-110 MG/DL Immature Granulocyte % (Auto) 0.4 0-1 % Neutrophils (%) (Auto) 62.2 40.0-77.0 % Lymphocytes (%) (Auto) 11.5 L 21.0-51.0 % Monocytes (%) (Auto) 15.2 H 3.0-13.0 % Eosinophils (%) (Auto) 9.8 H 0.0-8.0 % Basophils (%) (Auto) 0.9 0.0-5.0 % Neutrophils # (Auto) 3.4 1.8-7.7 K/uL Lymphocytes # (Auto) 0.6 L 1.0-4.8 K/uL Monocytes # (Auto) 0.8 0.1-1.0 K/uL Eosinophils # (Auto) 0.53 0.00-0.70 K/uL Basophils # (Auto) 0.05 0.00-0.20 K/uL Absolute Immature Granulocyte (auto 0.02 0-1 K/uL White Cell Morphology Comment See comments Current Medications Medications (Trade) Dose Ordered Sig/Seble Route PRN Reason Start Time Stop Time Status Last Admin Dose Admin Acetaminophen (TYLenol 325MG TAB) 650 mg Q6H PRN PO MILD PAIN (1-3) 11/20/24 16:30 12/20/24 16:29 Epoetin Chapo-epbx (Retacrit) 10,000 unit QMOWEFR SQ 11/23/24 09:00 12/23/24 08:59 Heparin Sodium (Porcine) (HEParin 5,000 UNIT VIAL) 10,000 unit AD IRRIG 11/21/24 11:00 12/21/24 10:59 11/21/24 12:51 10,000 UNIT Insulin Human Lispro (HumaLOG LISpro 100 UNIT/ML 3ML) INSULIN SLIDING SCAL... ACHS SQ 11/20/24 16:30 12/20/24 16:29 Ondansetron HCl (zoFRAN 4MG TABLET) 4 mg Q6H PRN PO NAUSEA/VOMITING 11/20/24 16:30 11/22/24 03:25 DC Ondansetron HCl (zoFRAN 4MG INJ) 4 mg Q6H PRN IVP NAUSEA/VOMITING 11/22/24 03:30 12/22/24 03:29 11/22/24 03:30 4 MG Pantoprazole Sodium (PROTonix 40MG INJ) 40 mg DAILY IVP 11/21/24 09:00 12/21/24 08:59 11/25/24 09:14 40 MG Sodium Chloride 1,000 ml @ 0 mls/hr ONCE IV 11/21/24 09:00 11/23/24 10:03 DC 11/21/24 10:21 100 MLS/HR Sodium Chloride 1,000 ml @ 0 mls/hr ONCE IV 11/23/24 10:00 12/23/24 09:59 11/23/24 13:20 333 MLS/HR Diagnostics / Radiology: [COPY/PASTE HERE IF NO REPORTS PLEASE DELETE SECTION] Assessment: Hematochezia Colostomy closure Plan: Continue GI prophylaxis Avoid NSAIDs Antireflux measures Monitor H&H and transfuse as needed Call with questions, concerns or change in clinical status Patient to follow-up at clinic post discharge Thank you for this consult GEETHA ROSAP Nov 25, 2024 09:23
--- NOTE | 2024-11-25 16:17 | NUR ---
D/C INSTRUCTIONS GIVEN AND ACKNOWLEDGED. IV REMOVED
--- NOTE | 2024-11-25 18:47 | DS ---
DATE OF DISCHARGE: 11/25/2024. PRESENTING COMPLAINT: Hematochezia. HOSPITAL COURSE: An 84-year-old female with end-stage renal disease, on dialysis; hypertension; diabetes mellitus; who presented to the hospital from retirement with above complaint. The patient admitted as a case of GI bleed. The patient found with severe anemia, was given blood transfusion twice. The patient was seen by Gastroenterology, treated with Protonix. The patient underwent colonoscopy, which showed no mass lesion, no bleeding, no ulcer. The patient was found with area of hematoma involving the abdominal wall. Decompression was done by surgical team. The patient is doing well clinically. Hemoglobin now is 10.2. Had multiple dialysis sessions during admission. FINAL DISCHARGE DIAGNOSES: * Anemia, status post transfusion. * Gastrointestinal bleed. * Abdominal wall hematoma. * End-stage renal disease, on dialysis. * Diabetes mellitus. PLAN: * The patient to be discharged home. * Continue Protonix. * Continue antidiabetic. * Continue antiemetic. * Follow up with tower observer. * Follow up with General Surgery. TID: [id number] RECEIPT: [id number]
--- NOTE | 2024-11-29 16:51 | PN ---
NEPHROLOGY FOLLOWUP NOTE INTERVAL HISTORY: The patient was evaluated in her room this morning, reports feeling well. Denies any fevers, chills, chest pain, nausea, vomiting, any further rectal bleeding. PHYSICAL EXAMINATION: CURRENT VITAL SIGNS: Temp is 98.1, pulse 71, blood pressure 146/84, respiratory rate is 20, satting 96% on room air. GENERAL: The patient is resting comfortably in bed, awake, alert, oriented. CARDIAC: Regular rhythm and rate. CHEST: Clear. ABDOMEN: Soft. EXTREMITIES: No edema. LABORATORY DATA: White count 6.9, hemoglobin 10.2, hematocrit 30.5, platelet count is 136. Sodium is 139, potassium is 4.0, chloride 103, bicarbonate is 28, BUN is 28, creatinine is 7.1, calcium is 7.6, magnesium is 1.6. ASSESSMENT: * End-stage renal disease, on chronic hemodialysis. * Hypertension. * Anemia. * Hematochezia. * Status post recent colostomy takedown, 11/02/2024. * History of coronary artery disease. * Prediabetes. PLAN: * End-stage renal disease. The patient will dialyze today per routine schedule, 3-hour treatment, 2K bath, 2.5 calcium bath, 300 blood flow rate, 600 dialysate flow rate, UF 1 liter only as tolerated. Continue renal diet and fluid restriction. We will continue routine dialysis every Thursday, Thursday and Thursday during hospitalization. * Hypertension. Blood pressure is now managed. * Anemia. Continue with Epogen. Trend labs. Transfuse as needed. * Hematochezia, status post colonoscopy, off antiplatelet agents. Follow recommendations from Gastroenterology. TID: [id number] RECEIPT: [id number]
== END 2024-11-25 17:00 | disposition home or self-care (01) | DRG 377 ==
LOC: EDH 11:20 → EDHIP 16:21 → 3DH 11-22 16:32
PROVIDERS: ADMIT Internal Medicine Infectious Disease; ATTEND Internal Medicine Infectious Disease
PROC: 30233N1 Transfusion of Nonautologous Red Blood Cells into Peripheral Vein, Percutaneous Approach (ICD-10-PCS; principal; 2024-11-20)
PROC: 5A1D70Z Performance of Urinary Filtration, Intermittent, Less than 6 Hours Per Day (ICD-10-PCS; 2024-11-20)
PROC: 0DJD8ZZ Inspection of Lower Intestinal Tract, Via Natural or Artificial Opening Endoscopic (ICD-10-PCS; 2024-11-22)
DX: K57.31 Diverticulosis of large intestine without perforation or abscess with bleeding (principal); N18.6 End stage renal disease; I13.2 Hypertensive heart and chronic kidney disease with heart failure and with stage 5 chronic kidney disease, or end stage renal disease; I50.32 Chronic diastolic (congestive) heart failure; E11.22 Type 2 diabetes mellitus with diabetic chronic kidney disease; E11.51 Type 2 diabetes mellitus with diabetic peripheral angiopathy without gangrene; E78.00 Pure hypercholesterolemia, unspecified; I25.10 Atherosclerotic heart disease of native coronary artery without angina pectoris; G47.33 Obstructive sleep apnea (adult) (pediatric); S30.1XXA Contusion of abdominal wall, initial encounter; D50.0 Iron deficiency anemia secondary to blood loss (chronic); X58.XXXA Exposure to other specified factors, initial encounter; D63.1 Anemia in chronic kidney disease; E89.0 Postprocedural hypothyroidism; Z99.2 Dependence on renal dialysis; Z95.5 Presence of coronary angioplasty implant and graft; Z95.1 Presence of aortocoronary bypass graft; Z90.710 Acquired absence of both cervix and uterus; Z86.73 Personal history of transient ischemic attack (TIA), and cerebral infarction without residual deficits; Z85.42 Personal history of malignant neoplasm of other parts of uterus; Z83.3 Family history of diabetes mellitus; Z82.49 Family history of ischemic heart disease and other diseases of the circulatory system; Z82.0 Family history of epilepsy and other diseases of the nervous system; Z80.0 Family history of malignant neoplasm of digestive organs; Z88.8 Allergy status to other drugs, medicaments and biological substances; Z79.899 Other long term (current) drug therapy; Z79.82 Long term (current) use of aspirin; Z79.02 Long term (current) use of antithrombotics/antiplatelets; Z87.891 Personal history of nicotine dependence; I25.2 Old myocardial infarction; Z90.49 Acquired absence of other specified parts of digestive tract; Z43.3 Encounter for attention to colostomy; Y93.89 Activity, other specified; Y92.89 Other specified places as the place of occurrence of the external cause; Y99.8 Other external cause status
CPT/HCPCS: 36415; 45378; 71045; 74176; 80048; 80076; 81001; 82550; 82948; 83605; 83690; 83735; 83880; 84484; 85014; 85018; 85025; 85027; 85610; 85730; 86704; 86706; 86803; 86850; 86900; 86901; 86923; 87040; 87086; 87340; 90935; 93005; 96374; 96375; 99291; G0378; J0696; J1644; J2405; J2470; J2704; J7030; P9016; A4215; A4216; A4221; A4222; A4223; A4620; A4657; A7002; J3490; Q5106